=== PATIENT | female | born 1940 | race Caucasian/White ===

== ENCOUNTER 2017-01-10 03:39 | Inpatient (IN) | payer MEDICARE, OTHER ==
[~2017-01-10] VITALS: Ht 147.3 cm; Wt 63.8 kg
[2017-01-10] VITALS (40 sets, daily range): BP systolic 95–164; BP diastolic 45–118; PULSE 60–79; RESP 13–28; TEMP 97.3; Ht 147.3 cm; Wt 63.8 kg
[~2017-01-10 03:39] MED LIST: ADV25050 INHALATION; AMLO-147 PO; APR50 PO; ASPI-664 PO; CALC600T11 PO; CRES10 PO; DOCU100C26 PO; EPO4ESRD SC; FOLI-49 PO; FURO80TA3 PO; HYDR200T39 PO; LEVO50TA74 PO; MECL-77 PO; METO50TA16 PO; NAPH15DR22 BOTH EYES; NIT4 SL; PANT40TA3 PO; SEVE0.8P PO; SUCR1TAB56 PO; VALS160T20 PO; VITBC PO
[2017-01-10] MEDS ORDERED: LEVALBUTEROL (NEB) 1.25 MG/0.5 ML AMP INH STA (03:46)
[2017-01-10] MEDS ORDERED: IPRATROPIUM (NEB) 0.5 MG/2.5 ML AMP INH STA (03:46)
[2017-01-10 04:36] LABS: AADO2 Arterial 417.9 mmHg (7.0-24.0); Arterial Base Excess 1.7 mmol/L (-3.0-3); Arterial COHb 0.3 % (0.0-3.0); Arterial Fraction of Oxyhgb 95.5 % (93.0-99.0); Arterial HCO3 27.6 mmol/L (22.0-26.0); Arterial MetHb 0.3 % (0.0-1.5); Arterial Total Hemglobin 10.1 g/dl (12.0-18.0); Blood Gas IEPAP 15/5; MODE MASK - BIPAP
--- NOTE | 2017-01-10 05:00 | RADRPT ---
PROCEDURE: Chest. CLINICAL INDICATION: Chest pain. TECHNIQUE: Single frontal view of the chest was obtained. COMPARISON: None. FINDINGS: Mediasternotomy wires are present. There is a right-sided pacemaker. The cardiac silhouette is enl arged. The aortic arch is calcified. There are increased interstitial markings bilaterally. There are bibasilar atelectasis/consolidations and small to moderate pleural effusions. There is no pneu mothorax. IMPRESSION: Bilateral increased interstitial markings could represent interstitial edema or chronic lung changes . Bibasilar atelectasis/consolidations and small to moderate pleural effusions. Cardiomegaly and aortic atherosclerosis. .Adrian Gabriel MD, Date Time Electronically viewed and signed by .Adrian Gabriel MD, MD on 01/10/2017 05:00 .T/
[2017-01-10 05:58] LABS: ADD SCAN DIFF NO
--- NOTE | 2017-01-10 06:04 | ERA ---
ER Documentation Chief Complaint Date/Time DATE: 01/10/17 Chief Complaint SOB HPI The patient is a 76-year-old female, presenting to the ER because of acute dyspnea about an hour prior to arrival. The history is very limited due to patient critical condition. She was treated with Motrin 5 mg nebulizer by EMS due to wheezing with good response. History is mostly obtained from the tail dogger and medical record. She is on dialysis Friday and Friday Past medical history: Chronic kidney disease, hypothyroidism, hypertension, CAD , history of left breast carcinoma Past medical history: Pacemaker ROS All systems reviewed and are negative except as per history of present illness. Medications Home Meds Active Scripts Epoetin Costa (Epogen) 4,000 Units/Ml Soln, 4000 UNITS SC MoWeFr@17 for 60 Days, BOTTLE Prov:ISABELLA ROBLES MD 12/01/15 Vitamin B Comp W-C (Total B With C) 1 Cap Cap, 1 CAP PO DAILY for 60 Days, TAB Prov:ISABELLA ROBLES MD 12/01/15 Reported Medications Valsartan* (Diovan*) 160 Mg Tablet, 160 MG PO DAILY, TAB 11/28/15 Calcium Carbonate* (Calcium Carbonate*) 600 MG Ca Tab, 600 MG PO, TAB 11/28/15 Levothyroxine Sodium* (Levothyroxine Sodium*) 50 Mcg Tablet, 50 MCG PO BEFORE BREAKFAST, #30 TAB 11/28/15 Folic Acid* (Folic Acid*) 1 Mg Tablet, 1 MG PO DAILY, TAB 11/28/15 Furosemide* (Furosemide*) 80 Mg Tablet, 80 MG PO DAILY, #30 TAB 11/28/15 Hydroxychloroquine Sulfate* (Hydroxychloroquine Sulfate*) 200 Mg Tablet, 200 MG PO BID, TAB 11/28/15 Naphazoline-Pheniramine* (Visine-A*) 15 Ml Drops, 1 DROP BOTH EYES QID for RED EYES, EA 11/28/15 Rosuvastatin Calcium* (Crestor*) 10 Mg Tablet, 10 MG PO QHS, #30 TAB 11/28/15 Aspirin (Low Dose Aspirin) 81 Mg Tablet.dr, 81 MG PO DAILY 11/28/15 Meclizine Hcl* (Meclizine Hcl*) 25 Mg Tablet, 25 MG PO BID Y for DIZZINESS, TAB 11/28/15 Hydralazine Hcl* (Hydralazine Hcl*) 50 Mg Tab, 50 MG PO BID, #120 TAB 11/28/15 Pantoprazole* (Protonix*) 40 Mg Tablet.dr, 40 MG PO BID, TAB 11/28/15 Sucralfate* (Carafate*) 1 Gm Tab, 1 GM PO BID, TAB 11/28/15 Amlodipine Besylate* (Amlodipine Besylate*) 10 Mg Tablet, 10 MG PO DAILY, #30 TAB 11/28/15 Sevelamer Carbonate* (Renvela*) 0.8 Gm Powd.pack, 0.8 GM PO WITH MEALS, PACKET 11/28/15 Metoprolol Succinate* (Toprol XL*) 50 Mg Tab.er.24h, 50 MG PO QHS, #30 TAB 11/28/15 Nitroglycerin* (Nitrostat*) 0.4 Mg Tab.subl, 0.4 MG SL Q5MIN Y for CHEST PAIN, BOTTLE 11/28/15 Salmeterol Xinaf/Fluticasone* (Advair*) 250-50 Diskus Inhaler, 1 INH INHALATION BID, #1 INHALER 11/28/15 Docusate Sodium* (Doc-Q-Lace*) 100 Mg Capsule, 100 MG PO BID Y for CONSTIPATION , CAP 11/28/15 Allergies Allergies: Coded Allergies: Sulfa (Sulfonamide Antibiotics) (Verified Allergy, Unknown, 11/28/15) clonidine (Verified Allergy, Unknown, 01/10/17) iron dextran complex (Verified Allergy, Unknown, 01/10/17) quinine (Verified Allergy, Unknown, 01/10/17) PMhx/Soc History of Surgery: Yes (MAGO KNEE SX,LEFT BREAST SX,OPEN HEART SX,EYE SX,RT CHEST PACEMAKER) Anesthesia Reaction: No Hx Neurological Disorder: No Hx Respiratory Disorders: No Hx Cardiac Disorders: Yes (HTN,DYSPILIDEMIA,RT CHEST PACEMAKER ) Hx Psychiatric Problems: No Hx Miscellaneous Medical Probl: Yes (ERSD, HTN, vertigo, dyslipidemia) Hx Alcohol Use: No Hx Substance Use: No Hx Tobacco Use: No Smoking Status: Unknown if ever smoked Physical Exam Vitals Vital Signs Date Time Temp Pulse Resp B/P Pulse Ox O2 Delivery O2 Flow Rate FiO2 01/10/17 03:53 Non Rebreather 01/10/17 03:50 71 100 80 01/10/17 03:50 97.7 73 18 225/91 93 Physical Exam Const: Moderate acute respiratory distress. Head: Atraumatic. Eyes: Normal Conjunctiva. ENT: Normal External Ears, Nose and Mouth. Neck: Full range of motion. No meningismus. Resp: Bibasilar crackles and bilateral expiratory wheezes Cardio: Regular rate and rhythm, no murmurs. Abd: Soft, non distended, normal bowel sounds, non tender. Skin: No petechiae or rashes. Back: No midline or flank tenderness. Ext: No cyanosis, or edema. Neur: Limited due to her condition Psych: Limited due to her condition. Results 24 hrs Laboratory Tests Test 01/10/17 04:25 Arterial Blood HCO3 27.6mmol/L Arterial Blood Base Excess 1.7mmol/L Arterial Blood Oxygen Saturation 96.1mmHG Sukhi Test N/A Arterial Blood Gas Puncture Site Right Brachial Arterial Blood Carboxyhemoglobin 0.3% Arterial Blood Date Drawn 01/10/2017 4:32:05 AM Arterial Blood Methemoglobin 0.3% Arterial Blood pCO2 (Temp correct) 49.7mmhg Arterial Blood pH (Temp corrected) 7.362 Arterial Blood pO2 (Temp corrected) 100.3mmHG Blood Gas A-a O2 Differential 417.9mmHg Blood Gas Actual Respiration Rate 22 Blood Gas IPAP/EPAP Ratio 15/5 Blood Gas Modality MASK - BIPAP Blood Gas Notified Time 01/10/2017 4:36:35 AM Blood Gas Notified Whom MG Blood Gas Respiration Rate 20.0 Blood Gas Specimen Source Blood arterial Blood Gas Temperature 37.0C FiO2 80.0% Oxyhemoglobin Percent 95.5% Total Hemoglobin 10.1g/dl Current Medications Medications (Trade) Dose Ordered Sig/Crow Route PRN Reason Start Time Stop Time Status Last Admin Dose Admin Levalbuterol (Xopenex Neb) 5 mg ONCE STAT INH 01/10/17 03:46 01/10/17 03:48 DC 01/10/17 03:54 Ipratropium Rudyard (Atrovent 0.02% (Neb)) 1.5 mg ONCE STAT INH 01/10/17 03:46 01/10/17 03:48 DC 01/10/17 03:54 Procedures/[address], [place] [address] Radiology Main Line: [phone] DIAGNOSTIC IMAGING REPORT Patient: NATHALIE CARRILLO : 1940 Age: 76 Sex: F [id number] DOS: 01/10/17 0346 Ordering MD: MARIE CASAREZ MD Location: E/R Room/Bed: PROCEDURE: Chest. CLINICAL INDICATION: Chest pain. TECHNIQUE: Single frontal view of the chest was obtained. COMPARISON: None. FINDINGS: Mediasternotomy wires are present. There is a right-sided pacemaker. The cardiac silhouette is enlarged. The aortic arch is calcified. There are increased interstitial markings bilaterally. There are bibasilar atelectasis/ consolidations and small to moderate pleural effusions. There is no pneumothorax. IMPRESSION: Bilateral increased interstitial markings could represent interstitial edema or chronic lung changes. Bibasilar atelectasis/consolidations and small to moderate pleural effusions. Cardiomegaly and aortic atherosclerosis. .Adrian Gabriel MD, MD Date Time Electronically viewed and signed by .Adrian Gabriel MD, MD on 01/10/2017 05:00 .T/ CC: MARIE CASAREZ MD EKG: Read by emergency physician Rate/Rhythm: Normal Sinus Rhythm 71 beats/min QRS, ST, T-waves: No ST elevation, no T inversion, LAD, right bundle branch block, LVH, wide QRS Impression: Abnormal EKG All the blood tests are pending because the patient was a difficult draw. MEDICAL MAKING DECISION: The patient is a 76-year-old female, presenting with acute fluid overload. She was put on BiPAP and treated with Xopenex 5 mg nebulizer and Atrovent 1.5 mg over one hour with good response. The differential diagnoses considered include but are not limited to asthma, COPD, pneumonia, pulmonary embolus, pleural effusion, congestive heart failure. Critical Care: Time: 35 minutes excluding all billable procedures. Treatments/Evaluations: Close monitoring and treatment of unstable vital signs, cardiorespiratory, and neurologic status, while maintaining tight balance of fluid, respiratory, and cardiac interventions. Departure Diagnosis: Primary Impression: Fluid overload Comments I discussed the findings with the patient. I discussed the patient with her physician at 5:45 am who was made aware of the lab, the treatment, the patient condition, the pending labs. The patient is admitted to ICU. He asked me to page the net manager Dr Arnett. We have paged Dr. Morris who was on -call for MARIE Louie MD Jan 10, 2017 06:04
[2017-01-10 06:23] LABS: ALBUMIN 3.5 g/dl (3.3-4.9)
[2017-01-10 06:26] LABS: ALBUMIN/GLOBULIN RATIO 1.09; BILIRUBIN,INDIRECT 0.1 mg/dl (0-1.1); BILIRUBIN,TOTAL 0.1 mg/dl (0.2-1.3); CREATININE 3.06 mg/dl (0.44-1.00); TOTAL PROTEIN 6.7 g/dl (6.1-8.1)
[2017-01-10 06:27] LABS: CALCIUM 8.7 mg/dl (8.4-10.2)
[2017-01-10] MEDS ORDERED: FUROSEMIDE 40 MG INJ IV ONE (06:30)
[2017-01-10 06:31] LABS: ABNORMAL IP MESSAGE 1; HEMATOCRIT 30.6 % (37.0-47.0); HEMOGLOBIN 9.3 g/dl (12.0-16.0); MEAN CORPUSCULAR HEMOGLOBIN 33.6 pg (29.0-33.0); MEAN CORPUSCULAR HGB CONC 30.4 g/dl (32.0-37.0); MEAN CORPUSCULAR VOLUME 110.5 fl (82.0-101.0); PLATELET COUNT 57 10^3/UL (140-415); RED BLOOD COUNT 2.77 10^6/ul (4.20-5.40); RED CELL DISTRIBUTION WIDTH 15.8 % (11.5-14.5); WHITE BLOOD COUNT 4.8 10^3/ul (4.8-10.8)
[2017-01-10 06:49] LABS: TROPONIN-I 0.231 ng/ml (0.00-0.12)
[2017-01-10 07:03] LABS: MEAN PLATELET VOLUME 11.8 fl (7.4-10.4)
--- NOTE | 2017-01-10 08:09 | QN ---
Documentation Comment H&P dict a/p 1. cards: flash pulm edema, cards eval, plan dialysis, trend trop, obtain echo (b) s/p ICD (c) new RBBB (not present 11/2015) (d) htn 2. hypoxemic resp failure, cont bipap 3. renal: esrd on hd, consult dr mckeon 4. CINDY SHARMA MD Jan 10, 2017 08:09
[2017-01-10] MEDS ORDERED: NITROGLYCERIN 50 MG/D5W (PMX) 250 ML IV SCH (08:30)
[2017-01-10] MEDS ORDERED: ACETAMINOPHEN 325 MG TAB PO PRN (08:30)
[2017-01-10] MEDS ORDERED: ALBUTEROL/IPRATROPIUM (NEB) 3 ML AMP NEB PRN (08:30)
[2017-01-10] MEDS ORDERED: DOCUSATE SODIUM 100 MG CAP PO PRN (08:30)
[2017-01-10] MEDS ORDERED: ONDANSETRON 4 MG INJ IV PRN (08:30)
[2017-01-10 08:43] LABS: INR 0.91; PROTIME 12.2 Sec (12.2-14.2)
--- NOTE | 2017-01-10 09:01 | HP ---
DATE OF ADMISSION: 01/10/2017 CHIEF COMPLAINT: Shortness of breath. HISTORY OF PRESENT ILLNESS: The patient is referred to the emergency room at [facility] th shortness of breath which is of sudden onset from her fdc facility, [facility]. At this time, the patient's status and breathing difficulties does not allow her to provide any add itional history. In the emergency room, she was placed immediately on BiPAP with a high FIO2 and no w appears to be somewhat more comfortable. Remainder of this is gathered from conversation with the emergency room physician as well as review of the medical record. The patient does come with papers from [facility] which reveal that she was admitted there on o r around December 01 when she was discharged from [facility] where she was evaluated for wea kness and chest pain during dialysis, according to the accompanying history and physical. She was a dmitted to that hospital and then discharged to the retirement. There is no record transmitted of any cardiac workup having been performed. PAST MEDICAL HISTORY: Significant for end-stage renal disease on hemodialysis Friday, , an d Friday, anemia of chronic kidney disease, hypertension, known coronary artery disease status pos t coronary artery bypass grafting, ICD in situ. MEDICATIONS: Outpatient include 1. Plaquenil 200 mg b.i.d. 2. Erythropoietin 4000 units q. Friday, Friday, Friday. 3. Norvasc 10 mg daily. 4. Hydralazine 50 mg b.i.d. 5. Metoprolol 50 mg at bedtime. 6. Nitroglycerin 0.4 mg as needed. 7. Crestor 10 mg daily. 8. Diovan 160 mg daily. 9. Aspirin 81 mg daily. 10. Os-Eyal 600 mg daily. 11. Lasix 80 mg daily. 12. Renvela 0.8 grams with meals. 13. Advair 1 puff b.i.d. 14. Docusate 100 mg b.i.d. as needed. 15. Meclizine as needed. 16. Protonix 40 mg b.i.d. 17. Carafate 1 gram b.i.d. 18. Levoxyl 0.05 mg daily. 19. Folate 1 mg daily. 20. Nephro-Andrea. ALLERGIES: 1. SULFA. 2. CLONIDINE. 3. IRON COMPLEX. 4. QUININE. SOCIAL HISTORY: The patient has recently been in the retirement. She was unable to provide me an y additional details. Calls to family have not been answered. FAMILY HISTORY: Unobtainable. REVIEW OF SYSTEMS: Unobtainable. PHYSICAL EXAMINATION: VITAL SIGNS: Blood pressure is 181/100, pulse rate 69, respirations 20, temperature is 97.7, on BiP AP and 100% FIO2. GENERAL: Elderly woman, moderate respiratory distress. HEENT: Normocephalic, atraumatic without evident scleral icterus, perioral cyanosis. Mucous membra emma are moist. NECK: Soft and supple without masses. There is jugular venous distention to the angle of the greg ble. HEART: Regular rate and rhythm, S1-S2, no added sounds. CHEST: Shows faint wheezing throughout. No definitive crackles are appreciated. ABDOMEN: Soft, nontender, nondistended without palpable hepatosplenomegaly. EXTREMITIES: Without clubbing, cyanosis, or edema. There are multiple bruises which appear iatroge jennie in nature. SKIN: Without rashes. NEUROLOGIC: Moving all 4 limbs, awake, and attempts to respond to questions. LABORATORY STUDIES: Reveal a hemoglobin of 9.3 g/dL, white count of 4800, platelets of 57,000. Sod ium is 147, potassium 5.0, chloride 104, bicarbonate 26, BUN 35, creatinine 3.06, glucose 124. Live r function tests are unremarkable. Lactic acid is 2.1. Troponin is 0.231. Blood gas on BiPAP reve als a pH of 7.362, PCO2 of 50, PO2 of 100 on FIO2 of 80%. Chest x-ray reveals left-sided tunneled d ialysis catheter, right-sided implantable cardiac defibrillator, sternal wires, pulmonary vascular c ongestion with right-side seemingly greater effected than left. EKG shows right bundle branch block pattern with T-wave inversions noted in leads V1 and V2. This is somewhat different than EKG we vickers ve on file from November 2015. ASSESSMENT AND PLAN: 1. Cardiac: The patient with likely flash pulmonary edema. I suspect this represents cardiac isch emia. Of note in the computer is that the patient has been evaluated twice in the last 6 weeks or s o for chest pain syndrome at [facility] in [facility] based on the paperwork sent from the retirement. We will obtain cardiology evaluation, favor invasive strategy, but defer to their opinion. 2. Status post implantable cardiac defibrillator, awaiting echocardiogram. 3. Hypertension, out of control, likely related to acute syndrome. We will begin nitroglycerin dri p at this time. 4. Pulmonary: The patient with acute hypoxemic respiratory failure most likely related to pulmonar y edema and cardiac issue. Await dialysis. Dr. Das has been contacted by the emergency room. 5. Renal: The patient with end-stage renal disease on hemodialysis. We will obtain renal consulta tion and urgent dialysis at this time. 6. Prophylaxis with Lovenox and Protonix. Dictated By: CINDY SHARMA MD RER/NTS Conf#: [id number] DID#: [id number]
[2017-01-10] MEDS ORDERED: NITROGLYCERIN 2% 1 GM OINT PKT TD ONE (10:30)
[2017-01-10 10:35] LABS: LYMPHOCYTES # 0.6 10^3/ul (0.8-2.9); MONOCYTE # 0.1 10^3/ul (0.3-0.9); PLATELET ESTIMATE PLT APPEAR DECREASED
--- NOTE | 2017-01-10 10:41 | QN ---
Documentation Comment HPI:76-year-old woman signed out to me to follow-up labs. Patient was admitted for respiratory failure and end-stage kidney disease requiring dialysis. Patient is on BiPAP now without complaints per Past medical history: Hypertension, coronary artery disease status post coronary artery bypass graft, end-stage kidney disease hemodialysis dependent 3 times per week PHYSICAL EXAMINATION: VITAL SIGNS: Blood pressure is 181/100, pulse rate 69, respirations 20, temperature is 97.7, on BiPAP and 100% FIO2. GENERAL: Elderly woman, moderate respiratory distress. HEENT: Normocephalic, atraumatic without evident scleral icterus, perioral cyanosis. Mucous membranes are moist. NECK: No cervical spine tenderness or deformity, there is jugular venous distention to the angle of the mandible. HEART: Regular rate and rhythm, no murmurs rubs or gallops CHEST: Positive wheezing and crackles bilaterally, no stridor ABDOMEN: Soft, nontender, nondistended without palpable hepatosplenomegaly. EXTREMITIES: Without clubbing, cyanosis, or edema. There are multiple soft tissue contusions SKIN: Without rashes. NEUROLOGIC: Moving all 4 limbs, awake, and attempts to respond to questions. Medical decision making: CBC reveals thrombocytopenia 57, electrolytes revealed renal failure with a BUN/creatinine of 35/3, liver function tests were normal, troponin was positive at 0.2. INR was 0.9. Labs were reviewed by me and the admitting physician who is down here in the emergency department at the bedside evaluating the patient. I deferred aspirin therapy to admitting and consulting physicians. Diagnostic impression: #1) acute respiratory failure 2.) End-stage kidney disease requiring hemodialysis 3.) Elevated troponin POLO HOUSER MD Jan 10, 2017 10:41
[2017-01-10] MEDS: ALBUTEROL/IPRATROPIUM (NEB) 3 ML AMP NEB SCH ×4 (11:00→20:58)
--- NOTE | 2017-01-10 11:04 | CONS ---
Date/Time of Note Date/Time of Note DATE: 01/10/17 TIME: 10:40 Assessment/Plan Assessment/Plan Additional Assessment/Plan 76 yo Female with 1) Respiratory Distress 2nd to Pulm Edema/Volume Overload 2) ESRD on HD TTS, Missed Last HD treatment 3) Anemia, Chronic, CKD 4) Thrombocytopenia 5) HTN Uncontrolled 6) Elevated Troponin 7) Mineral Bone Disease, CKD 8) Mild Hypernatremia 9) Left Chest Perma-cath HD ordered urgently for today and tomorrow in ICU UF as tolerated today and tomorrow Please monitor BP closely while on HD Also may remove Nitro patch as BP significantly improved. Epogen ordered 3 x week, may be given with HD. Will cont to follow closely Discussed case with NICOLE FUENTES and Dr Olea of Cardiology. Thank you for the opportunity to participate in the care of Ms Garrido. Consultation Date/Type/Reason Admit Date/Time Date of Consultation: Jan 10, 2017 Type of Consultation: Nephrology Reason for Consultation Volume Overload, ESRD Referring Provider: CINDY SHARMA MD Hx of Present Illness 76 yo Female with history of end-stage renal disease on hemodialysis Friday, , and Friday, anemia of chronic kidney disease, hypertension, known coronary artery disease status post coronary artery bypass grafting and ICD who was sent from [facility] for sudden onset shortness of breath . Patient required O2 support including BIPAP and now is on NRB. Patient had missed her HD treatment and last HD was on Friday. BP also was found to be elevated and was placed on Nitro Patch and given Hydralazine and lasix. Pt is refusing all other Oral medications. Nephrology consulted for Volume Overload and management of ESRD. Subjective hx not possible: pt critical status Constitutional: requiring O2 Respiratory: shortness of breath Cardiovascular: No chest pain Past Medical History MEDICATIONS: 1. Plaquenil 200 mg b.i.d. 2. Erythropoietin 4000 units q. Friday, Friday, Friday. 3. Norvasc 10 mg daily. 4. Hydralazine 50 mg b.i.d. 5. Metoprolol 50 mg at bedtime. 6. Nitroglycerin 0.4 mg as needed. 7. Crestor 10 mg daily. 8. Diovan 160 mg daily. 9. Aspirin 81 mg daily. 10. Os-Eyal 600 mg daily. 11. Lasix 80 mg daily. 12. Renvela 0.8 grams with meals. 13. Advair 1 puff b.i.d. 14. Docusate 100 mg b.i.d. as needed. 15. Meclizine as needed. 16. Protonix 40 mg b.i.d. 17. Carafate 1 gram b.i.d. 18. Levoxyl 0.05 mg daily. 19. Folate 1 mg daily. 20. Nephro-Andrea. ALLERGIES: 1. SULFA. 2. CLONIDINE. 3. IRON COMPLEX. 4. QUININE. Medical History: congestive heart failure, coronary artery disease, hypertension, renal disease Past Surgical History Past Surgical Hx: other (AICD, PC) Family History Significant Family History: no pertinent family hx Social History Alcohol Use: none Smoking Status: Unknown if ever smoked Drug Use: none Exam/Review of Systems Vital Signs Vitals Vital Signs Date Time Temp Pulse Resp B/P Pulse Ox O2 Delivery O2 Flow Rate FiO2 01/10/17 10:04 97.3 69 16 211/98 100 Non Rebreather 15.0 01/10/17 09:41 80 Exam Constitutional: alert, distress Head: atraumatic Eyes: EOMI, nl conjunctiva ENMT: mucosa pink and moist Neck: jvd Respiratory: crackles/rales, labored breathing, No diminished breath sounds Cardiovascular: edema, other (Left Chest Perma-cath) Gastrointestinal: non-tender, soft Extremities: edema Neurological: nl speech, No lethargic Skin: ecchymosis, nl turgor, No diaphoresis Results Result Diagram: 01/10/17 0550 01/10/17 0535 Results 24 hrs Laboratory Tests Test 01/10/17 04:25 01/10/17 05:35 01/10/17 05:40 01/10/17 05:50 Arterial Blood HCO3 27.6 H Arterial Blood Base Excess 1.7 Arterial Blood Oxygen Saturation 96.1 Sukhi Test N/A Arterial Blood Gas Puncture Site Right Brachial Arterial Blood Carboxyhemoglobin 0.3 Arterial Blood Date Drawn 01/10/2017 4:32:05 AM Arterial Blood Methemoglobin 0.3 Arterial Blood pCO2 (Temp correct) 49.7 H Arterial Blood pH (Temp corrected) 7.362 Arterial Blood pO2 (Temp corrected) 100.3 H Blood Gas A-a O2 Differential 417.9 H Blood Gas Actual Respiration Rate 22 Blood Gas IPAP/EPAP Ratio 15/5 Blood Gas Modality MASK - BIPAP Blood Gas Notified Time 01/10/2017 4:36:35 AM Blood Gas Notified Whom MG Blood Gas Respiration Rate 20.0 Blood Gas Specimen Source Blood arterial Blood Gas Temperature 37.0 FiO2 80.0 Oxyhemoglobin Percent 95.5 Total Hemoglobin 10.1 L Alanine Aminotransferase (ALT/SGPT) 27 Albumin 3.5 Albumin/Globulin Ratio 1.09 Alkaline Phosphatase 121 Anion Gap 22 H Aspartate Amino Transf (AST/SGOT) 45 Blood Urea Nitrogen 35 H Calcium Level 8.7 Carbon Dioxide Level 26 Chloride Level 104 Creatinine 3.06 H Direct Bilirubin 0.00 Globulin 3.20 Glucose Level 124 Indirect Bilirubin 0.1 Potassium Level 5.0 Sodium Level 147 H Total Bilirubin 0.1 L Total Protein 6.7 Troponin I 0.231 *H Lactic Acid Level 2.1 Basophils # Basophils % Differential Comment MANUAL DIFF Eosinophils # 0.0 Eosinophils % 1.0 Hematocrit 30.6 L Hemoglobin 9.3 L Lymphocytes # 0.6 L Lymphocytes % 13.0 L Mean Corpuscular Hemoglobin 33.6 H Mean Corpuscular Hemoglobin Concent 30.4 L Mean Corpuscular Volume 110.5 H Mean Platelet Volume 11.8 #H Monocytes # 0.1 L Monocytes % 3.0 Neutrophils # 4.0 Neutrophils % 83.0 H Nucleated Red Blood Cells # Nucleated Red Blood Cells % Platelet Count 57 L Platelet Estimate PLT APPEAR DECREASED Red Blood Count 2.77 L Red Cell Distribution Width 15.8 H White Blood Count 4.8 # Test 01/10/17 08:00 Activated Partial Thromboplast Time 81.7 *H INR International Normalized Ratio 0.91 Lactic Acid Level 0.7 Prothrombin Time 12.2 Prothrombin Time Ratio 1.0 Troponin I 0.259 *H Medications Medications Current Medications Amlodipine Besylate (Norvasc) 10 mg DAILY PO ; Start 01/10/17 at 09:00 Aspirin (Halfprin) 81 mg DAILY PO ; Start 01/10/17 at 09:00 Docusate Sodium (Colace) 100 mg BID PRN PO CONSTIPATION; Start 01/10/17 at 08: 30 Epoetin Costa (Epogen (Esrd)) 4,000 units MoWeFr@17 SC ; Start 01/10/17 at 17:00 Folic Acid (Folic Acid) 1 mg DAILY PO ; Start 01/10/17 at 09:00 Hydroxychloroquine Sulfate (Plaquenil) 200 mg BID PO ; Start 01/10/17 at 09:00 Metoprolol Succinate (Toprol Xl) 50 mg QHS PO ; Start 01/10/17 at 21:00 Naphazoline HCl/ Pheniramine Maleate (Visine-A) 1 drop QID BOTH EYES ; Start 08/19 at 09:00 Pantoprazole (Protonix Tab) 40 mg BID PO ; Start 01/10/17 at 09:00 Salmeterol Xinafoate/ Fluticasone (Advair 250/50 Diskus) 1 inh BID INH ; Start 01/10/17 at 09:00 Sucralfate (Carafate) 1 gm BID PO ; Start 01/10/17 at 09:00 Valsartan (Diovan) 160 mg DAILY PO ; Start 01/10/17 at 09:00 Vitamin B Complex/ Vitamin C (Berocca) 1 cap DAILY PO ; Start 01/10/17 at 09:00 Atorvastatin Calcium (Lipitor) 80 mg DAILY PO ; Start 01/10/17 at 09:00 Hydralazine HCl (Apresoline) 50 mg Q6 PO ; Start 01/10/17 at 12:00 Ondansetron HCl (Zofran Inj) 4 mg Q6H PRN IV NAUSEA AND/OR VOMITING; Start 08/19 at 08:30 Acetaminophen (Tylenol Tab) 650 mg Q6H PRN PO PAIN LEVEL 1-3 OR FEVER; Start at 08:30 Morphine Sulfate (morphine) 2 mg Q4H PRN IV PAIN LEVEL 7-10; Start 01/10/17 at 08:30 Enoxaparin Sodium 30 mg 30 mg DAILY SC ; Start 01/10/17 at 09:00; Status Future hold Nitroglycerin/ Dextrose (Nitroglycerin 50 Mg/D5W (Pmx)) 250 ml @ 0 mls/hr TITRATE IV ; Start 01/10/17 at 08:30 Procedures Procedures PROCEDURE: Chest. CLINICAL INDICATION: Chest pain. TECHNIQUE: Single frontal view of the chest was obtained. COMPARISON: None. FINDINGS: Mediasternotomy wires are present. There is a right-sided pacemaker. The cardiac silhouette is enlarged. The aortic arch is calcified. There are increased interstitial markings bilaterally. There are bibasilar atelectasis/ consolidations and small to moderate pleural effusions. There is no pneumothorax. IMPRESSION: Bilateral increased interstitial markings could represent interstitial edema or chronic lung changes. Bibasilar atelectasis/consolidations and small to moderate pleural effusions. Cardiomegaly and aortic atherosclerosis. .Adrian Gabriel MD, MD Date Time Electronically viewed and signed by .Adrian Gabriel MD, MD on 01/10/2017 05:00 EDGARDO DUKES MD Jan 10, 2017 10:52
[2017-01-10] MEDS: NAPHAZOLINE/PHENIRAMINE 15 ML OPH BOTH EYES SCH ×4 (11:13→21:00)
[2017-01-10] MEDS: VITAMIN B COMPLEX/VIT C CAP PO SCH (11:13)
--- NOTE | 2017-01-10 11:13 | CONS ---
Date/Time of Note Date/Time of Note DATE: 01/10/17 TIME: 11:07 Assessment/Plan Assessment/Plan Additional Assessment/Plan Chest x-ray was reviewed from today which is showing florid pulmonary edema. Sternal wires are identified. Pacemaker in the right chest wall. Assessment recommendations; 1. Patient admitted with flash pulmonary edema likely from missing her hemodialysis session yesterday. 2. Hypertension, patient is mildly hypertensive possibly contributing to pulmonary edema due to diastolic dysfunction. 3. End-stage renal disease on hemodialysis. 4. Prior history of left breast cancer. 5. History of cardiac arrhythmia. 6. Currently no evidence of any infective process. 7. History of hypothyroidism. 8. Mild thrombocytopenia. Continue current treatment. Continue 100% FiO2. Patient will be started on hemodialysis shortly. Consultation Date/Type/Reason Admit Date/Time Date of Consultation: Jan 10, 2017 Type of Consultation: Pulmonary/critical care Reason for Consultation Pulmonary consultation obtained for evaluation of hypoxemia as well as congestive heart failure. Next History presenting; next Patient is a 76-year-old white lady who was brought into the emergency room with complaints of shortness of breath going on for the last 1 day the patient apparently had missed her last hemodialysis session. Evaluation a chest x-ray was done which is showing florid pulmonary edema patient has been put on 100% nonrebreather mask instructed to ICU. By the time I saw the patient is quite awake on still on nonrebreather mask and denies any severe respiratory distress. Denies any chest pain, nausea, vomiting. Past medical history; 1. Patient with chronic renal failure on hemodialysis. 2. History of left breast cancer. 3. History of coronary artery disease status post bypass surgery. 4. History of cardiac arrhythmia status post pacemaker implantation. 5. History of hypertension. 6. Hypothyroidism. 7. History of bilateral knee surgery. Medications; were reviewed. Allergies; are to sulfa drugs. Iron as well as quinine. Next Social history; most of any smoking alcohol or drug abuse. Family history; not available. Next Occupational history; not available. Review of systems; limited review of systems could be obtained. Patient is reporting shortness of breath is stable. Denies any chest pain. Any coughing. Denies any abdominal pain. General exam; elderly lady, currently in no distress, appears mildly anxious. Constitutional: requiring O2 Respiratory: shortness of breath Cardiovascular: No chest pain Past Medical History Medical History: congestive heart failure, coronary artery disease, hypertension, renal disease Past Surgical History Past Surgical Hx: other (AICD, PC) Social History Alcohol Use: none Smoking Status: Unknown if ever smoked Drug Use: none Exam/Review of Systems Vital Signs Vitals Vital Signs Date Time Temp Pulse Resp B/P Pulse Ox O2 Delivery O2 Flow Rate FiO2 01/10/17 10:04 97.3 69 16 211/98 100 Non Rebreather 15.0 01/10/17 09:41 80 Exam H EENT examination; supple neck, positive JVD. No lymphadenopathy. Midline trachea. No thyromegaly. Patient is edentulous and wears dentures. Bilateral intraocular lens implants are present. Chest examination; diminished breath sounds throughout. Patient has kyphoscoliosis. S1-S2 audible, no murmurs. Regular rhythm. There is a pacemaker in the right chest wall. Abdomen examination; soft, nondistended. Bowel sounds are sluggish. Next Extremity exam is; she has bilateral knee scars. There is no peripheral edema. Pulses 2+ bilaterally. PERFORMANCE MANAGER examination; no obvious focal motor deficit. Results Result Diagram: 01/10/17 0550 01/10/17 0535 Results 24 hrs Laboratory Tests Test 01/10/17 04:25 01/10/17 05:35 01/10/17 05:40 01/10/17 05:50 Arterial Blood HCO3 27.6 H Arterial Blood Base Excess 1.7 Arterial Blood Oxygen Saturation 96.1 Sukhi Test N/A Arterial Blood Gas Puncture Site Right Brachial Arterial Blood Carboxyhemoglobin 0.3 Arterial Blood Date Drawn 01/10/2017 4:32:05 AM Arterial Blood Methemoglobin 0.3 Arterial Blood pCO2 (Temp correct) 49.7 H Arterial Blood pH (Temp corrected) 7.362 Arterial Blood pO2 (Temp corrected) 100.3 H Blood Gas A-a O2 Differential 417.9 H Blood Gas Actual Respiration Rate 22 Blood Gas IPAP/EPAP Ratio 15/5 Blood Gas Modality MASK - BIPAP Blood Gas Notified Time 01/10/2017 4:36:35 AM Blood Gas Notified Whom MG Blood Gas Respiration Rate 20.0 Blood Gas Specimen Source Blood arterial Blood Gas Temperature 37.0 FiO2 80.0 Oxyhemoglobin Percent 95.5 Total Hemoglobin 10.1 L Alanine Aminotransferase (ALT/SGPT) 27 Albumin 3.5 Albumin/Globulin Ratio 1.09 Alkaline Phosphatase 121 Anion Gap 22 H Aspartate Amino Transf (AST/SGOT) 45 Blood Urea Nitrogen 35 H Calcium Level 8.7 Carbon Dioxide Level 26 Chloride Level 104 Creatinine 3.06 H Direct Bilirubin 0.00 Globulin 3.20 Glucose Level 124 Indirect Bilirubin 0.1 Potassium Level 5.0 Sodium Level 147 H Total Bilirubin 0.1 L Total Protein 6.7 Troponin I 0.231 *H Lactic Acid Level 2.1 Basophils # Basophils % Differential Comment MANUAL DIFF Eosinophils # 0.0 Eosinophils % 1.0 Hematocrit 30.6 L Hemoglobin 9.3 L Lymphocytes # 0.6 L Lymphocytes % 13.0 L Mean Corpuscular Hemoglobin 33.6 H Mean Corpuscular Hemoglobin Concent 30.4 L Mean Corpuscular Volume 110.5 H Mean Platelet Volume 11.8 #H Monocytes # 0.1 L Monocytes % 3.0 Neutrophils # 4.0 Neutrophils % 83.0 H Nucleated Red Blood Cells # Nucleated Red Blood Cells % Platelet Count 57 L Platelet Estimate PLT APPEAR DECREASED Red Blood Count 2.77 L Red Cell Distribution Width 15.8 H White Blood Count 4.8 # Test 01/10/17 08:00 Activated Partial Thromboplast Time 81.7 *H INR International Normalized Ratio 0.91 Lactic Acid Level 0.7 Prothrombin Time 12.2 Prothrombin Time Ratio 1.0 Troponin I 0.259 *H Medications Medications Current Medications Amlodipine Besylate (Norvasc) 10 mg DAILY PO ; Start 01/10/17 at 09:00 Aspirin (Halfprin) 81 mg DAILY PO ; Start 01/10/17 at 09:00 Docusate Sodium (Colace) 100 mg BID PRN PO CONSTIPATION; Start 01/10/17 at 08: 30 Epoetin Costa (Epogen (Esrd)) 4,000 units MoWeFr@17 SC ; Start 01/10/17 at 17:00 Folic Acid (Folic Acid) 1 mg DAILY PO ; Start 01/10/17 at 09:00 Hydroxychloroquine Sulfate (Plaquenil) 200 mg BID PO ; Start 01/10/17 at 09:00 Metoprolol Succinate (Toprol Xl) 50 mg QHS PO ; Start 01/10/17 at 21:00 Naphazoline HCl/ Pheniramine Maleate (Visine-A) 1 drop QID BOTH EYES ; Start 08/19 at 09:00 Pantoprazole (Protonix Tab) 40 mg BID PO ; Start 01/10/17 at 09:00 Salmeterol Xinafoate/ Fluticasone (Advair 250/50 Diskus) 1 inh BID INH ; Start 01/10/17 at 09:00 Sucralfate (Carafate) 1 gm BID PO ; Start 01/10/17 at 09:00 Valsartan (Diovan) 160 mg DAILY PO ; Start 01/10/17 at 09:00 Vitamin B Complex/ Vitamin C (Berocca) 1 cap DAILY PO ; Start 01/10/17 at 09:00 Atorvastatin Calcium (Lipitor) 80 mg DAILY PO ; Start 01/10/17 at 09:00 Hydralazine HCl (Apresoline) 50 mg Q6 PO ; Start 01/10/17 at 12:00 Ondansetron HCl (Zofran Inj) 4 mg Q6H PRN IV NAUSEA AND/OR VOMITING; Start 08/19 at 08:30 Acetaminophen (Tylenol Tab) 650 mg Q6H PRN PO PAIN LEVEL 1-3 OR FEVER; Start at 08:30 Morphine Sulfate (morphine) 2 mg Q4H PRN IV PAIN LEVEL 7-10; Start 01/10/17 at 08:30 Enoxaparin Sodium 30 mg 30 mg DAILY SC ; Start 01/10/17 at 09:00; Status Future hold Nitroglycerin/ Dextrose (Nitroglycerin 50 Mg/D5W (Pmx)) 250 ml @ 0 mls/hr TITRATE IV ; Start 01/10/17 at 08:30 TONY MEHTA Jan 10, 2017 11:13
[2017-01-10] MEDS: SUCRALFATE 1 GM TAB PO SCH ×2 (11:14→21:00)
[2017-01-10] MEDS: FOLIC ACID 1 MG TAB PO SCH (11:14)
[2017-01-10] MEDS: VALSARTAN 160 MG TAB PO SCH (11:14)
[2017-01-10] MEDS: ATORVASTATIN 80 MG TAB PO SCH (11:15)
[2017-01-10] MEDS: AMLODIPINE 10 MG TAB PO SCH (11:15)
[2017-01-10] MEDS: HYDROXYCHLOROQUINE 200 MG TAB PO SCH ×2 (11:15→21:00)
[2017-01-10] MEDS: ASPIRIN (EC) 81 MG TAB PO SCH (11:15)
[2017-01-10] MEDS: SALMETEROL/FLUTICASONE 250/50 INHA INH SCH ×2 (11:16→21:00)
[2017-01-10] MEDS: LEVOTHYROXINE 50 MCG TAB PO SCH (11:16)
[2017-01-10] MEDS: PANTOPRAZOLE (EC) 40 MG TAB PO SCH ×2 (11:16→21:00)
[2017-01-10] MEDS: ENOXAPARIN 30 MG/0.3 ML SYG SC SCH (11:16)
--- NOTE | 2017-01-10 12:01 | CONS ---
Date/Time of Note Date/Time of Note DATE: 01/10/17 TIME: 11:43 Assessment/Plan Assessment/Plan Additional Assessment/Plan Pulmonary edema Hypertension urgency End-stage renal disease on hemodialysis Hypertension History of pacemaker Possible poor compliance -Patient seen initially in the emergency room and refusing examination and any medications or BiPAP. I spoke to her at length with the supervisor poultry hatchery and she said "I feel fine, leave me alone. I have no pain, just let me be". Her systolic blood pressure was above 210 in the emergency room. This was discussed with the patient including risks of stroke and she said "I do not care ". I asked the nurse to place nitro ointment and current systolic blood pressure is now 150. Patient was re-seen in the ICU and is calmer now, she did allow me to examine her with my findings above. She denies any chest pain. It appears patient has not been compliant with medications and unclear compliance with hemodialysis. She is planned to undergo hemodialysis this morning. Check echocardiogram, 2 sets of troponins minimally elevated and in the setting of renal dysfunction and hypertension urgency, this is not uncommon. Of importance is compliant with hemodialysis and medication regimen. Will continue aspirin and statin therapy, beta-vipin. Consultation Date/Type/Reason Admit Date/Time Type of Consultation: cv Reason for Consultation Shortness of breath and elevated troponin Hx of Present Illness This is a 76-year-old female with past medical history of end-stage renal disease on hemodialysis, hypertension, who was brought to the emergency room from nursing facility secondary to shortness of breath. History was obtained from the primary physician, medical records, and the patient via supervisor poultry hatchery. Patient states she has been getting short of breath at nighttime over the past few days. In further discussion, it appears that she has been refusing hemodialysis. She is also refusing all medications at the current time and at times becomes angry and does not want to give me any history. She is also currently refusing all medications and BiPAP. She denies any chest pain, dizziness or lightheadedness. She repeatedly is asking us to leave her alone and she is fine. Unable to be performed at the current time given patient not forthcoming with information Constitutional: requiring O2 Respiratory: shortness of breath Cardiovascular: No chest pain Past Medical History Medical History: congestive heart failure, hypertension, renal disease Past Surgical History Past Surgical Hx: other (Including but not limited to hemodialysis catheter, pacemaker) Family History Significant Family History: no pertinent family hx Social History Alcohol Use: none Smoking Status: Unknown if ever smoked Other Social History From nursing facility Exam/Review of Systems Vital Signs Vitals Vital Signs Date Time Temp Pulse Resp B/P Pulse Ox O2 Delivery O2 Flow Rate FiO2 01/10/17 11:15 60 16 139/118 100 Non Rebreather 01/10/17 11:00 97.6 01/10/17 10:04 15.0 01/10/17 09:41 80 Exam Awake, intermittently following commands, becomes combative at times, on nonrebreather Head: normocephalic Respiratory: other (Coarse breath sounds bilaterally with scattered crackles, no wheezing) Cardiovascular: other (S1-S2 heard), regular rate and rhythm Gastrointestinal: bowel sounds, non-tender, other (No guarding), soft Extremities: edema, other (No cyanosis) Results Result Diagram: 01/10/17 0550 01/10/17 0535 Results 24 hrs Laboratory Tests Test 01/10/17 04:25 01/10/17 05:35 01/10/17 05:40 01/10/17 05:50 Arterial Blood HCO3 27.6 H Arterial Blood Base Excess 1.7 Arterial Blood Oxygen Saturation 96.1 Sukhi Test N/A Arterial Blood Gas Puncture Site Right Brachial Arterial Blood Carboxyhemoglobin 0.3 Arterial Blood Date Drawn 01/10/2017 4:32:05 AM Arterial Blood Methemoglobin 0.3 Arterial Blood pCO2 (Temp correct) 49.7 H Arterial Blood pH (Temp corrected) 7.362 Arterial Blood pO2 (Temp corrected) 100.3 H Blood Gas A-a O2 Differential 417.9 H Blood Gas Actual Respiration Rate 22 Blood Gas IPAP/EPAP Ratio 15/5 Blood Gas Modality MASK - BIPAP Blood Gas Notified Time 01/10/2017 4:36:35 AM Blood Gas Notified Whom MG Blood Gas Respiration Rate 20.0 Blood Gas Specimen Source Blood arterial Blood Gas Temperature 37.0 FiO2 80.0 Oxyhemoglobin Percent 95.5 Total Hemoglobin 10.1 L Alanine Aminotransferase (ALT/SGPT) 27 Albumin 3.5 Albumin/Globulin Ratio 1.09 Alkaline Phosphatase 121 Anion Gap 22 H Aspartate Amino Transf (AST/SGOT) 45 Blood Urea Nitrogen 35 H Calcium Level 8.7 Carbon Dioxide Level 26 Chloride Level 104 Creatinine 3.06 H Direct Bilirubin 0.00 Globulin 3.20 Glucose Level 124 Indirect Bilirubin 0.1 Potassium Level 5.0 Sodium Level 147 H Total Bilirubin 0.1 L Total Protein 6.7 Troponin I 0.231 *H Lactic Acid Level 2.1 Basophils # Basophils % Differential Comment MANUAL DIFF Eosinophils # 0.0 Eosinophils % 1.0 Hematocrit 30.6 L Hemoglobin 9.3 L Lymphocytes # 0.6 L Lymphocytes % 13.0 L Mean Corpuscular Hemoglobin 33.6 H Mean Corpuscular Hemoglobin Concent 30.4 L Mean Corpuscular Volume 110.5 H Mean Platelet Volume 11.8 #H Monocytes # 0.1 L Monocytes % 3.0 Neutrophils # 4.0 Neutrophils % 83.0 H Nucleated Red Blood Cells # Nucleated Red Blood Cells % Platelet Count 57 L Platelet Estimate PLT APPEAR DECREASED Red Blood Count 2.77 L Red Cell Distribution Width 15.8 H White Blood Count 4.8 # Test 01/10/17 08:00 Activated Partial Thromboplast Time 81.7 *H INR International Normalized Ratio 0.91 Lactic Acid Level 0.7 Prothrombin Time 12.2 Prothrombin Time Ratio 1.0 Troponin I 0.259 *H Medications Medications Current Medications Amlodipine Besylate (Norvasc) 10 mg DAILY PO ; Start 01/10/17 at 09:00 Aspirin (Halfprin) 81 mg DAILY PO ; Start 01/10/17 at 09:00 Docusate Sodium (Colace) 100 mg BID PRN PO CONSTIPATION; Start 01/10/17 at 08: 30 Epoetin Costa (Epogen (Esrd)) 4,000 units MoWeFr@17 SC ; Start 01/10/17 at 17:00 Folic Acid (Folic Acid) 1 mg DAILY PO ; Start 01/10/17 at 09:00 Hydroxychloroquine Sulfate (Plaquenil) 200 mg BID PO ; Start 01/10/17 at 09:00 Metoprolol Succinate (Toprol Xl) 50 mg QHS PO ; Start 01/10/17 at 21:00 Naphazoline HCl/ Pheniramine Maleate (Visine-A) 1 drop QID BOTH EYES ; Start 08/19 at 09:00 Pantoprazole (Protonix Tab) 40 mg BID PO ; Start 01/10/17 at 09:00 Salmeterol Xinafoate/ Fluticasone (Advair 250/50 Diskus) 1 inh BID INH ; Start 01/10/17 at 09:00 Sucralfate (Carafate) 1 gm BID PO ; Start 01/10/17 at 09:00 Valsartan (Diovan) 160 mg DAILY PO ; Start 01/10/17 at 09:00 Vitamin B Complex/ Vitamin C (Berocca) 1 cap DAILY PO ; Start 01/10/17 at 09:00 Atorvastatin Calcium (Lipitor) 80 mg DAILY PO ; Start 01/10/17 at 09:00 Hydralazine HCl (Apresoline) 50 mg Q6 PO ; Start 01/10/17 at 12:00 Ondansetron HCl (Zofran Inj) 4 mg Q6H PRN IV NAUSEA AND/OR VOMITING; Start 08/19 at 08:30 Acetaminophen (Tylenol Tab) 650 mg Q6H PRN PO PAIN LEVEL 1-3 OR FEVER; Start at 08:30 Morphine Sulfate (morphine) 2 mg Q4H PRN IV PAIN LEVEL 7-10; Start 01/10/17 at 08:30 Enoxaparin Sodium 30 mg 30 mg DAILY SC ; Start 01/10/17 at 09:00; Status Future hold Nitroglycerin/ Dextrose (Nitroglycerin 50 Mg/D5W (Pmx)) 250 ml @ 0 mls/hr TITRATE IV ; Start 01/10/17 at 08:30 Procedures Procedures ECG demonstrates sinus rhythm at 71 bpm, right bundle branch block, left ventricular hypertrophy, nonspecific STT wave abnormalities Db Olea DO Jan 10, 2017 11:54
[2017-01-10 12:04] LABS: PARTIAL THROMBOPLASTIN TIME 27.4 Sec (25.0-35.0)
[2017-01-10] MEDS: SEVELAMER CARBONATE 0.8 GM PKT PO SCH ×2 (13:05→17:23)
--- NOTE | 2017-01-10 14:40 | RADRPT ---
Echocardiogram Report Patient Name: NATHALIE CARRILLO Gender: Female Date: 1940 Study Date: 10-Jan-2017 Lead Radiologic Technologist: Volodymyr Hough RDCS Location: 1 Ref. Physician: CINDY SHARMA Quality: Adequate Procedures: Transthoracic echocardiogram with complete 2D, M-Mode, and doppler examination. Indications: Chest Pain. 2D/M Mode Doppler Measurement Value Normal Ranges Measurement Value Normal Ranges LVIDd 2D 4.8 3.5 - 5.6 cm NADINE Vmax 2.0 cm2 LVIDs 2D 2.3 2.1 - 4.1 cm NADINE VTI 2.1 cm2 FS 2D 51.1 % AV Mean James 2.2 m/sec LVPWd 2D 0.9 0.6 - 1.1 cm AV Mean PG 23.0 mmHg IVSd 2D 1.0 0.6 - 1.1 cm AV Peak James 3.6 m/sec IVS/LVPW 2D 1.1 AV Peak PG 51.0 mmHg AoR Diam 2D 2.2 2.0 - 3.7 cm AV VTI 67.1 cm LA/Ao 2D 2 0 - 1 LVOT Mean James 1.4 m/sec EDV 2D 111.0 cm3 LVOT Mean PG 10.0 mmHg ESV 2D 13.0 cm3 LVOT Peak James 2.5 m/sec LA Dimen 2D 4.4 2.3 - 4.0 cm LVOT Peak PG 26.0 mmHg LVOT Diam 1.9 cm LVOT VTI 49.3 cm LVOT Area 2.8 cm2 MV E Peak James 1.4 m/sec MV A Peak James 0.6 m/sec MV E/A 2.2 MV Decel Time 141 msec MV E/A 2.2 TR Peak James 3.3 m/sec TR Peak PG 43.0 mmHg RVSP 58.0 mmHg Findings Left Ventricle: Normal left ventricular systolic function. Normal left ventricular cavity size. Mild concentric left ventricular hypertrophy. Ejection fraction is visually estimated at 55 %. Tissue Doppler/Mitral Doppler indices are consistent with pseudonormalization with mildly elevated left atrial pressure (Stage II diastolic dysfunction). Right Ventricle: Normal right ventricular size. Normal right ventricular systolic function. Left Atrium: There is severe enlargement of left atrium. Right Atrium: The right atrium is normal in size. Mitral Valve: Mild mitral leaflet calcification. Mild mitral annular calcification. Moderate mitral valve regurgitation. Aortic Valve: Moderate aortic stenosis. Aortic valve Max velocity 3.57 m/sec. Max PG 51.00 mmHg. Mean PG 23.00 mmHg. Aortic cusps appear moderately calcified. Trace aortic valve regurgitation. Tricuspid Valve: Normal appearance of the tricuspid valve. Estimated peak PA systolic pressure 58 mmHg. There is mild to moderate tricuspid regurgitation. Pulmonic Valve: Pulmonic valve not well visualized. There is mild pulmonic regurgitation. Pericardium: Normal pericardium with no significant pericardial effusion. Aorta: Normal aortic root. IVC: Dilated IVC without respiratory collapse consistent with elevated right atrial pressure. Conclusions 1.Normal left ventricular systolic function. Normal left ventricular cavity size. Mild concentric left ventricular hypertrophy. Ejection fraction is visually estimated at 55 %. Tissue Doppler/Mitral Doppler indices are consistent with pseudonormalization with mildly elevated left atrial pressure (Stage II diastolic dysfunction). 2.Normal right ventricular size. Normal right ventricular systolic function. 3.There is severe enlargement of left atrium. 4.The right atrium is normal in size. 5.Moderate mitral valve regurgitation. 6.Moderate aortic stenosis. Trace aortic valve regurgitation. 7.Estimated peak PA systolic pressure 58 mmHg. There is mild to moderate tricuspid regurgitation. 8.Normal pericardium with no significant pericardial effusion. Electronically Signed By: Db Olea 10-Jan-2017 14:39:54 -0800 Patient Name: NATHALIE CARRILLO Study Date: 10-Jan-2017 [id number]
[2017-01-10] MEDS: EPOETIN 4000 UNITS/1 ML INJ (ESRD) SC SCH (17:00)
[2017-01-10] MEDS: METOPROLOL (XL) 50 MG TAB PO SCH (21:00)
[2017-01-11] VITALS (41 sets, daily range): BP systolic 67–142; BP diastolic 35–109; PULSE 74–108; RESP 12–32
[2017-01-11] MEDS: ALBUTEROL/IPRATROPIUM (NEB) 3 ML AMP NEB SCH ×6 (00:09→20:18)
[2017-01-11] MEDS: morphine 2 MG INJ IV PRN ×2 (00:14→14:23)
[2017-01-11 05:39] LABS: AADO2 Arterial 604.2 mmHg (7.0-24.0); Arterial Base Excess 3.2 mmol/L (-3.0-3); Arterial COHb 0.3 % (0.0-3.0); Arterial Fraction of Oxyhgb 90.7 % (93.0-99.0); Arterial HCO3 27.5 mmol/L (22.0-26.0); Arterial MetHb 0.3 % (0.0-1.5); Arterial Total Hemglobin 8.4 g/dl (12.0-18.0); MODE MASK - NRB
[2017-01-11 05:42] LABS: ADD SCAN DIFF NO
--- NOTE | 2017-01-11 05:53 | RADRPT ---
PROCEDURE: XR Chest. CLINICAL INDICATION: SOB TECHNIQUE: Portable single view of the chest COMPARISON: 01/10 FINDINGS: Lung volumes are slightly improved. Cardiomegaly, aortic calcification, pacemaker, and dialysis cat heter remain in place. The appearance of the heart lungs is otherwise unchanged with right perihila r and bibasilar infiltrates with probable effusions. IMPRESSION: Slightly improved lung volumes. Otherwise stable exam. RPTAT: HLBE Roma Neal Physician Date Time Electronically viewed and signed by Roma Neal, Physician on 01/11/2017 05:52 LE/
[2017-01-11 05:57] LABS: ABNORMAL IP MESSAGE 1; BASOPHILS % 0.2 % (0.0-2.0); EOSINOPHILS % 0.1 % (0.0-7.0); HEMATOCRIT 26.9 % (37.0-47.0); HEMOGLOBIN 8.2 g/dl (12.0-16.0); LYMPHOCYTES # 0.3 10^3/ul (0.8-2.9); LYMPHOCYTES % 2.3 % (15.0-51.0); MEAN CORPUSCULAR HGB CONC 30.5 g/dl (32.0-37.0); MEAN CORPUSCULAR VOLUME 111.6 fl (82.0-101.0); MEAN PLATELET VOLUME 10.6 fl (7.4-10.4); MONOCYTES % 7.4 % (0.0-11.0); NEUTROPHIL # 11.8 10^3/ul (1.6-7.5); NEUTROPHILS % 89.5 % (39.0-77.0); PLATELET COUNT 147 10^3/UL (140-415); RED BLOOD COUNT 2.41 10^6/ul (4.20-5.40); RED CELL DISTRIBUTION WIDTH 15.8 % (11.5-14.5); WHITE BLOOD COUNT 13.1 10^3/ul (4.8-10.8)
[2017-01-11] MEDS: LEVOTHYROXINE 50 MCG TAB PO SCH (06:11)
[2017-01-11 06:45] LABS: ALBUMIN 3.3 g/dl (3.3-4.9); POTASSIUM 3.1 mmol/L (3.5-5.1)
[2017-01-11 06:47] LABS: CREATININE 2.08 mg/dl (0.44-1.00)
[2017-01-11 06:48] LABS: ALBUMIN/GLOBULIN RATIO 1.06; BILIRUBIN,INDIRECT 0.1 mg/dl (0-1.1); BILIRUBIN,TOTAL 0.1 mg/dl (0.2-1.3); CALCIUM 8.3 mg/dl (8.4-10.2); TOTAL PROTEIN 6.4 g/dl (6.1-8.1)
[2017-01-11] MEDS: SEVELAMER CARBONATE 0.8 GM PKT PO SCH ×3 (07:47→17:59)
[2017-01-11] MEDS: ASPIRIN (EC) 81 MG TAB PO SCH (08:12)
[2017-01-11] MEDS: PANTOPRAZOLE (EC) 40 MG TAB PO SCH ×2 (08:12→21:37)
[2017-01-11] MEDS: VITAMIN B COMPLEX/VIT C CAP PO SCH (08:12)
[2017-01-11] MEDS: SALMETEROL/FLUTICASONE 250/50 INHA INH SCH ×2 (08:12→21:38)
[2017-01-11] MEDS: FOLIC ACID 1 MG TAB PO SCH (08:12)
[2017-01-11] MEDS: NAPHAZOLINE/PHENIRAMINE 15 ML OPH BOTH EYES SCH ×4 (08:12→21:38)
[2017-01-11] MEDS: AMLODIPINE 10 MG TAB PO SCH (08:13)
[2017-01-11] MEDS: VALSARTAN 160 MG TAB PO SCH (08:14)
[2017-01-11] MEDS: SUCRALFATE 1 GM TAB PO SCH ×2 (08:19→21:37)
[2017-01-11] MEDS: HYDROXYCHLOROQUINE 200 MG TAB PO SCH ×2 (08:19→21:37)
[2017-01-11] MEDS: ATORVASTATIN 80 MG TAB PO SCH (08:19)
[2017-01-11] MEDS: ENOXAPARIN 30 MG/0.3 ML SYG SC SCH (08:26)
--- NOTE | 2017-01-11 09:04 | PN ---
Date/Time of Note Date/Time of Note DATE: 01/11/17 TIME: 08:56 Assessment/Plan VTE Prophylaxis VTE Prophylaxis Intervention: LMWH Lines/Catheters IV Catheter Type (from Nrs): Peripheral IV Urinary Cath still in place: No Assessment/Plan Chief Complaint/Hosp Course CHF/volume overload CM ESRD.on HD Repeat HD today transfer to tele if resp status improved Problems: Subjective 24 Hr Interval Summary Free Text/Dictation no complaints. feels better Exam/Review of Systems Vital Signs Vitals Vital Signs Date Time Temp Pulse Resp B/P Pulse Ox O2 Delivery O2 Flow Rate FiO2 01/11/17 08:00 91 01/11/17 06:00 23 106/50 100 Non Rebreather 01/11/17 04:26 15.0 01/11/17 04:00 98.4 01/10/17 18:45 100 Intake and Output 01/10/17 01/10/17 01/11/17 15:00 23:00 07:00 Intake Total 625 ml 35 ml Output Total 3500 ml Balance -2875 ml 35 ml Exam Constitutional: alert, oriented, well developed Psych: no complaints Head: atraumatic, normocephalic Eyes: EOMI, nl conjunctiva Neck: non-tender, supple Respiratory: diminished breath sounds Cardiovascular: regular rate and rhythm Gastrointestinal: bowel sounds, non-tender, soft Extremities: edema Neurological: nl mental status Results Result Diagram: 01/11/17 0520 01/11/17 0520 Results 24 hrs Laboratory Tests Test 01/10/17 13:40 01/11/17 03:20 01/11/17 05:20 Lactic Acid Level 0.7 Arterial Blood HCO3 27.5 H Arterial Blood Base Excess 3.2 H Arterial Blood Oxygen Saturation 91.2 L Sukhi Test N/A Arterial Blood Gas Puncture Site Right Brachial Arterial Blood Carboxyhemoglobin 0.3 Arterial Blood Date Drawn 01/11/2017 5:10:13 AM Arterial Blood Methemoglobin 0.3 Arterial Blood pCO2 (Temp correct) 40.9 Arterial Blood pH (Temp corrected) 7.446 Arterial Blood pO2 (Temp corrected) 67.9 L Blood Gas A-a O2 Differential 604.2 H Blood Gas Modality MASK - NRB Blood Gas Notified Time 01/11/2017 5:39:21 AM Blood Gas Notified Whom [place] Blood Gas Specimen Source Blood arterial Blood Gas Temperature 37.0 FiO2 100.0 Oxyhemoglobin Percent 90.7 L Total Hemoglobin 8.4 L Alanine Aminotransferase (ALT/SGPT) 26 Albumin 3.3 Albumin/Globulin Ratio 1.06 Alkaline Phosphatase 114 Anion Gap 15 # Aspartate Amino Transf (AST/SGOT) 35 Basophils # 0.0 Basophils % 0.2 Blood Urea Nitrogen 19 # Calcium Level 8.3 L Carbon Dioxide Level 31 Chloride Level 99 Creatinine 2.08 H Direct Bilirubin 0.00 Eosinophils # 0.0 Eosinophils % 0.1 Globulin 3.10 Glucose Level 95 Hematocrit 26.9 L Hemoglobin 8.2 L Indirect Bilirubin 0.1 Lymphocytes # 0.3 L Lymphocytes % 2.3 L Mean Corpuscular Hemoglobin 34.0 H Mean Corpuscular Hemoglobin Concent 30.5 L Mean Corpuscular Volume 111.6 H Mean Platelet Volume 10.6 H Monocytes # 1.0 H Monocytes % 7.4 Neutrophils # 11.8 H Neutrophils % 89.5 H Nucleated Red Blood Cells # 0.0 Nucleated Red Blood Cells % 0.0 Platelet Count 147 # Potassium Level 3.1 L Red Blood Count 2.41 L Red Cell Distribution Width 15.8 H Sodium Level 142 Total Bilirubin 0.1 L Total Protein 6.4 White Blood Count 13.1 #H Medications Medications Current Medications Amlodipine Besylate (Norvasc) 10 mg DAILY PO ; Start 01/10/17 at 09:00 Aspirin (Halfprin) 81 mg DAILY PO Last administered on 01/11/17 08:12; Admin Dose 81 MG; Start 01/10/17 at 09:00 Docusate Sodium (Colace) 100 mg BID PRN PO CONSTIPATION; Start 01/10/17 at 08: 30 Epoetin Costa (Epogen (Esrd)) 4,000 units MoWeFr@17 SC ; Start 01/10/17 at 17:00 Folic Acid (Folic Acid) 1 mg DAILY PO Last administered on 01/11/17 08:12; Admin Dose 1 MG; Start 01/10/17 at 09:00 Hydroxychloroquine Sulfate (Plaquenil) 200 mg BID PO Last administered on 08:19; Admin Dose 200 MG; Start 01/10/17 at 09:00 Metoprolol Succinate (Toprol Xl) 50 mg QHS PO ; Start 01/10/17 at 21:00 Naphazoline HCl/ Pheniramine Maleate (Visine-A) 1 drop QID BOTH EYES Last administered on 01/11/17 08:12; Admin Dose 1 DROP; Start 01/10/17 at 09:00 Pantoprazole (Protonix Tab) 40 mg BID PO Last administered on 01/11/17 08:12; Admin Dose 40 MG; Start 01/10/17 at 09:00 Salmeterol Xinafoate/ Fluticasone (Advair 250/50 Diskus) 1 inh BID INH Last administered on 01/11/17 08:12; Admin Dose 1 INH; Start 01/10/17 at 09:00 Sucralfate (Carafate) 1 gm BID PO Last administered on 01/11/17 08:19; Admin Dose 1 GM; Start 01/10/17 at 09:00 Valsartan (Diovan) 160 mg DAILY PO ; Start 01/10/17 at 09:00 Vitamin B Complex/ Vitamin C (Berocca) 1 cap DAILY PO Last administered on 01/11 08:12; Admin Dose 1 CAP; Start 01/10/17 at 09:00 Atorvastatin Calcium (Lipitor) 80 mg DAILY PO Last administered on 01/11/17 08 :19; Admin Dose 80 MG; Start 01/10/17 at 09:00 Hydralazine HCl (Apresoline) 50 mg Q6 PO Last administered on 01/10/17 23:10; Admin Dose 50 MG; Start 01/10/17 at 12:00 Ondansetron HCl (Zofran Inj) 4 mg Q6H PRN IV NAUSEA AND/OR VOMITING; Start 08/19 at 08:30 Acetaminophen (Tylenol Tab) 650 mg Q6H PRN PO PAIN LEVEL 1-3 OR FEVER; Start at 08:30 Morphine Sulfate (morphine) 2 mg Q4H PRN IV PAIN LEVEL 7-10 Last administered on 01/11/17 00:14; Admin Dose 2 MG; Start 01/10/17 at 08:30 Enoxaparin Sodium 30 mg 30 mg DAILY SC Last administered on 01/11/17 08:26; Admin Dose 30 MG; Start 01/10/17 at 09:00; Status Future hold Nitroglycerin/ Dextrose (Nitroglycerin 50 Mg/D5W (Pmx)) 250 ml @ 0 mls/hr TITRATE IV ; Start 01/10/17 at 08:30 SIMONE CEJA MD Jan 11, 2017 09:04
--- NOTE | 2017-01-11 10:06 | CONS ---
Date/Time of Note Date/Time of Note DATE: 01/11/17 TIME: 10:02 Assessment/Plan Assessment/Plan Additional Assessment/Plan She was reviewed from today which is again showing bilateral pulmonary edema difficult to rule out superimposed pneumonia. Sternal wires are again identified. There is a pacemaker in the right chest wall. Next Assessment recommendations; 1. Patient admitted with respiratory failure due to missing on hemodialysis session status post hemodialysis yesterday however chest x-ray still showing diffuse infiltrates possibly suggestive of superimposed pneumonia. Patient also has increasing leukocytosis. 2. History of end-stage renal disease. 3. History of cardiac arrhythmia and coronary artery bypass surgery in the past. 4. Thrombocytopenia with improved platelet count. 5. Anemia. 6. History of left breast cancer. 7. History of hypothyroidism. Continue current treatment. Add cefepime and vancomycin. Obtain a follow-up chest x-ray in 48 hours. Consultation Date/Type/Reason Admit Date/Time Jan 10, 2017 at 10:56 Initial Consult Date 01/10/17 Type of Consultation: Pulmonary/critical care Referring Provider: CINDY SHARMA MD 24 HR Interval Summary Free Text/Dictation Patient condition remains tenuous at best. Still requiring nonrebreather mask for O2 saturation maintenance. Patient however is quite awake and alert. General exam; elderly lady, awake currently in no distress. Exam/Review of Systems Vital Signs Vitals Vital Signs Date Time Temp Pulse Resp B/P Pulse Ox O2 Delivery O2 Flow Rate FiO2 01/11/17 09:14 73 16 100 Non Rebreather Mask 15.0 100 01/11/17 06:00 106/50 01/11/17 04:00 98.4 Intake and Output 01/10/17 01/10/17 01/11/17 15:00 23:00 07:00 Intake Total 625 ml 35 ml Output Total 3500 ml Balance -2875 ml 35 ml Exam HEENT ; supple neck, positive JVD. Bilateral intraocular lens implants are present. Patient is edentulous. No lymph adenopathy. No thyromegaly. Chest examination; diminished breath sounds throughout. There is a well-healed sternal scar. Patient has kyphoscoliosis. S1-S2 audible, no murmurs. Regular rhythm. There is a pacemaker in the right chest wall. Abdomen examination; soft, nontender. No organomegaly. Bowel sounds audible. Extremity examination; no peripheral edema. ACCOUNT MANAGEMENT ASSISTANT examination a micro patient is awake moves all 4 extremities. Results Result Diagram: 01/11/17 0520 01/11/17 0520 Results 24 hrs Laboratory Tests Test 01/10/17 13:40 01/11/17 03:20 01/11/17 05:20 Lactic Acid Level 0.7 Arterial Blood HCO3 27.5 H Arterial Blood Base Excess 3.2 H Arterial Blood Oxygen Saturation 91.2 L Sukhi Test N/A Arterial Blood Gas Puncture Site Right Brachial Arterial Blood Carboxyhemoglobin 0.3 Arterial Blood Date Drawn 01/11/2017 5:10:13 AM Arterial Blood Methemoglobin 0.3 Arterial Blood pCO2 (Temp correct) 40.9 Arterial Blood pH (Temp corrected) 7.446 Arterial Blood pO2 (Temp corrected) 67.9 L Blood Gas A-a O2 Differential 604.2 H Blood Gas Modality MASK - NRB Blood Gas Notified Time 01/11/2017 5:39:21 AM Blood Gas Notified Whom [place] Blood Gas Specimen Source Blood arterial Blood Gas Temperature 37.0 FiO2 100.0 Oxyhemoglobin Percent 90.7 L Total Hemoglobin 8.4 L Alanine Aminotransferase (ALT/SGPT) 26 Albumin 3.3 Albumin/Globulin Ratio 1.06 Alkaline Phosphatase 114 Anion Gap 15 # Aspartate Amino Transf (AST/SGOT) 35 Basophils # 0.0 Basophils % 0.2 Blood Urea Nitrogen 19 # Calcium Level 8.3 L Carbon Dioxide Level 31 Chloride Level 99 Creatinine 2.08 H Direct Bilirubin 0.00 Eosinophils # 0.0 Eosinophils % 0.1 Globulin 3.10 Glucose Level 95 Hematocrit 26.9 L Hemoglobin 8.2 L Indirect Bilirubin 0.1 Lymphocytes # 0.3 L Lymphocytes % 2.3 L Mean Corpuscular Hemoglobin 34.0 H Mean Corpuscular Hemoglobin Concent 30.5 L Mean Corpuscular Volume 111.6 H Mean Platelet Volume 10.6 H Monocytes # 1.0 H Monocytes % 7.4 Neutrophils # 11.8 H Neutrophils % 89.5 H Nucleated Red Blood Cells # 0.0 Nucleated Red Blood Cells % 0.0 Platelet Count 147 # Potassium Level 3.1 L Red Blood Count 2.41 L Red Cell Distribution Width 15.8 H Sodium Level 142 Total Bilirubin 0.1 L Total Protein 6.4 White Blood Count 13.1 #H Medications Medications Current Medications Amlodipine Besylate (Norvasc) 10 mg DAILY PO ; Start 01/10/17 at 09:00 Aspirin (Halfprin) 81 mg DAILY PO Last administered on 01/11/17 08:12; Admin Dose 81 MG; Start 01/10/17 at 09:00 Docusate Sodium (Colace) 100 mg BID PRN PO CONSTIPATION; Start 01/10/17 at 08: 30 Epoetin Costa (Epogen (Esrd)) 4,000 units MoWeFr@17 SC ; Start 01/10/17 at 17:00 Folic Acid (Folic Acid) 1 mg DAILY PO Last administered on 01/11/17 08:12; Admin Dose 1 MG; Start 01/10/17 at 09:00 Hydroxychloroquine Sulfate (Plaquenil) 200 mg BID PO Last administered on 08:19; Admin Dose 200 MG; Start 01/10/17 at 09:00 Metoprolol Succinate (Toprol Xl) 50 mg QHS PO ; Start 01/10/17 at 21:00 Naphazoline HCl/ Pheniramine Maleate (Visine-A) 1 drop QID BOTH EYES Last administered on 01/11/17 08:12; Admin Dose 1 DROP; Start 01/10/17 at 09:00 Pantoprazole (Protonix Tab) 40 mg BID PO Last administered on 01/11/17 08:12; Admin Dose 40 MG; Start 01/10/17 at 09:00 Salmeterol Xinafoate/ Fluticasone (Advair 250/50 Diskus) 1 inh BID INH Last administered on 01/11/17 08:12; Admin Dose 1 INH; Start 01/10/17 at 09:00 Sucralfate (Carafate) 1 gm BID PO Last administered on 01/11/17 08:19; Admin Dose 1 GM; Start 01/10/17 at 09:00 Valsartan (Diovan) 160 mg DAILY PO ; Start 01/10/17 at 09:00 Vitamin B Complex/ Vitamin C (Berocca) 1 cap DAILY PO Last administered on 01/11 08:12; Admin Dose 1 CAP; Start 01/10/17 at 09:00 Atorvastatin Calcium (Lipitor) 80 mg DAILY PO Last administered on 01/11/17 08 :19; Admin Dose 80 MG; Start 01/10/17 at 09:00 Hydralazine HCl (Apresoline) 50 mg Q6 PO Last administered on 01/10/17 23:10; Admin Dose 50 MG; Start 01/10/17 at 12:00 Ondansetron HCl (Zofran Inj) 4 mg Q6H PRN IV NAUSEA AND/OR VOMITING; Start 08/19 at 08:30 Acetaminophen (Tylenol Tab) 650 mg Q6H PRN PO PAIN LEVEL 1-3 OR FEVER; Start at 08:30 Morphine Sulfate (morphine) 2 mg Q4H PRN IV PAIN LEVEL 7-10 Last administered on 01/11/17 00:14; Admin Dose 2 MG; Start 01/10/17 at 08:30 Enoxaparin Sodium 30 mg 30 mg DAILY SC Last administered on 01/11/17 08:26; Admin Dose 30 MG; Start 01/10/17 at 09:00; Status Future hold Nitroglycerin/ Dextrose (Nitroglycerin 50 Mg/D5W (Pmx)) 250 ml @ 0 mls/hr TITRATE IV ; Start 01/10/17 at 08:30 TONY MEHTA Jan 11, 2017 10:05
[2017-01-11] MEDS ORDERED: VANCOMYCIN IV PER PHARMACY XX SCH (10:30)
[2017-01-11] MEDS ORDERED: VANCOMYCIN 1 GM in NS 250 ML IVPB SCH (10:30)
[2017-01-11] MEDS: CEFEPIME 1GM/50 ML (PMX) 50 ML IVPB SCH (11:59)
[2017-01-11 13:59] LABS: OVALOCYTES FEW
[2017-01-11] MEDS ORDERED: VANCOMYCIN 1 GM in NS 250 ML IVPB ONE (14:00)
[2017-01-11] MEDS ORDERED: LORAZEPAM 2 MG INJ IV PRN (20:00)
[2017-01-11] MEDS: METOPROLOL (XL) 50 MG TAB PO SCH (21:00)
--- NOTE | 2017-01-11 21:50 | CONS ---
Date/Time of Note Date/Time of Note DATE: 01/11/17 TIME: 21:44 Assessment/Plan Assessment/Plan Additional Assessment/Plan In light of CXR still showing CHF, will dialyze today with dry UF Will monitor pulm status & orfder future dialysis as needed Over pt remains a diff problem, isac has a supportive family who want every thing done Consultation Date/Type/Reason Admit Date/Time Jan 10, 2017 at 10:56 Initial Consult Date 01/10/17 Type of Consultation: renal Referring Provider: CINDY SHARMA MD Exam/Review of Systems Vital Signs Vitals Vital Signs Date Time Temp Pulse Resp B/P Pulse Ox O2 Delivery O2 Flow Rate FiO2 01/11/17 20:20 100 6.0 01/11/17 20:19 98 18 Simple Mask 01/11/17 18:00 137/78 01/11/17 16:00 98.9 01/11/17 09:14 100 Intake and Output 01/10/17 01/10/17 01/11/17 15:00 23:00 07:00 Intake Total 625 ml 35 ml Output Total 3500 ml Balance -2875 ml 35 ml Exam Constitutional: alert, oriented, well developed Psych: nl mood/affect, no complaints Head: atraumatic, normocephalic Eyes: EOMI, PERRL, nl conjunctiva, nl lids, nl sclera ENMT: nl external ears & nose, nl lips & teeth, nl nasal mucosa & septum, other (pale conj) Neck: other (stiff) Respiratory: clear to auscultation, normal air movement, other (rt chest wall permacath in place) Cardiovascular: nl pulses, regular rate and rhythm Gastrointestinal: nl liver, spleen, non-tender, soft Musculoskeletal: nl extremities to inspection, nl gait and stance Extremities: other Neurological: CRA OFFICER II-XII intact, nl mental status, nl speech, nl strength Skin: nl turgor, No rash or lesions Lymph: nl lymph nodes Results Result Diagram: 01/11/17 0520 01/11/17 0520 Results 24 hrs Laboratory Tests Test 01/11/17 03:20 01/11/17 05:20 Arterial Blood HCO3 27.5 H Arterial Blood Base Excess 3.2 H Arterial Blood Oxygen Saturation 91.2 L Sukhi Test N/A Arterial Blood Gas Puncture Site Right Brachial Arterial Blood Carboxyhemoglobin 0.3 Arterial Blood Date Drawn 01/11/2017 5:10:13 AM Arterial Blood Methemoglobin 0.3 Arterial Blood pCO2 (Temp correct) 40.9 Arterial Blood pH (Temp corrected) 7.446 Arterial Blood pO2 (Temp corrected) 67.9 L Blood Gas A-a O2 Differential 604.2 H Blood Gas Modality MASK - NRB Blood Gas Notified Time 01/11/2017 5:39:21 AM Blood Gas Notified Whom [place] Blood Gas Specimen Source Blood arterial Blood Gas Temperature 37.0 FiO2 100.0 Oxyhemoglobin Percent 90.7 L Total Hemoglobin 8.4 L Alanine Aminotransferase (ALT/SGPT) 26 Albumin 3.3 Albumin/Globulin Ratio 1.06 Alkaline Phosphatase 114 Anion Gap 15 # Aspartate Amino Transf (AST/SGOT) 35 Basophils # 0.0 Basophils % 0.2 Blood Urea Nitrogen 19 # Calcium Level 8.3 L Carbon Dioxide Level 31 Chloride Level 99 Creatinine 2.08 H Direct Bilirubin 0.00 Eosinophils # 0.0 Eosinophils % 0.1 Globulin 3.10 Glucose Level 95 Hematocrit 26.9 L Hemoglobin 8.2 L Indirect Bilirubin 0.1 Lymphocytes # 0.3 L Lymphocytes % 2.3 L Macrocytosis 2+ Mean Corpuscular Hemoglobin 34.0 H Mean Corpuscular Hemoglobin Concent 30.5 L Mean Corpuscular Volume 111.6 H Mean Platelet Volume 10.6 H Monocytes # 1.0 H Monocytes % 7.4 Neutrophils # 11.8 H Neutrophils % 89.5 H Nucleated Red Blood Cells # 0.0 Nucleated Red Blood Cells % 0.0 Ovalocytes FEW Platelet Count 147 # Potassium Level 3.1 L Red Blood Count 2.41 L Red Cell Distribution Width 15.8 H Sodium Level 142 Total Bilirubin 0.1 L Total Protein 6.4 White Blood Count 13.1 #H Medications Medications Current Medications Amlodipine Besylate (Norvasc) 10 mg DAILY PO ; Start 01/10/17 at 09:00 Aspirin (Halfprin) 81 mg DAILY PO Last administered on 01/11/17t 08:12; Admin Dose 81 MG; Start 01/10/17 at 09:00 Docusate Sodium (Colace) 100 mg BID PRN PO CONSTIPATION; Start 01/10/17 at 08: 30 Epoetin Costa (Epogen (Esrd)) 4,000 units MoWeFr@17 SC ; Start 01/10/17 at 17:00 Folic Acid (Folic Acid) 1 mg DAILY PO Last administered on 01/11/17 08:12; Admin Dose 1 MG; Start 01/10/17 at 09:00 Hydroxychloroquine Sulfate (Plaquenil) 200 mg BID PO Last administered on 21:37; Admin Dose 200 MG; Start 01/10/17 at 09:00 Metoprolol Succinate (Toprol Xl) 50 mg QHS PO ; Start 01/10/17 at 21:00 Naphazoline HCl/ Pheniramine Maleate (Visine-A) 1 drop QID BOTH EYES Last administered on 01/11/17 21:38; Admin Dose 1 DROP; Start 01/10/17 at 09:00 Pantoprazole (Protonix Tab) 40 mg BID PO Last administered on 01/11/17 21:37; Admin Dose 40 MG; Start 01/10/17 at 09:00 Salmeterol Xinafoate/ Fluticasone (Advair 250/50 Diskus) 1 inh BID INH Last administered on 01/11/17 21:38; Admin Dose 1 INH; Start 01/10/17 at 09:00 Sucralfate (Carafate) 1 gm BID PO Last administered on 01/11/17 21:37; Admin Dose 1 GM; Start 01/10/17 at 09:00 Valsartan (Diovan) 160 mg DAILY PO ; Start 01/10/17 at 09:00 Vitamin B Complex/ Vitamin C (Berocca) 1 cap DAILY PO Last administered on 01/11 08:12; Admin Dose 1 CAP; Start 01/10/17 at 09:00 Atorvastatin Calcium (Lipitor) 80 mg DAILY PO Last administered on 01/11/17 08 :19; Admin Dose 80 MG; Start 01/10/17 at 09:00 Hydralazine HCl (Apresoline) 50 mg Q6 PO Last administered on 01/10/17 23:10; Admin Dose 50 MG; Start 01/10/17 at 12:00 Ondansetron HCl (Zofran Inj) 4 mg Q6H PRN IV NAUSEA AND/OR VOMITING; Start 08/19 at 08:30 Acetaminophen (Tylenol Tab) 650 mg Q6H PRN PO PAIN LEVEL 1-3 OR FEVER; Start at 08:30 Morphine Sulfate (morphine) 2 mg Q4H PRN IV PAIN LEVEL 7-10 Last administered on 01/11/17 14:23; Admin Dose 2 MG; Start 01/10/17 at 08:30 Enoxaparin Sodium 30 mg 30 mg DAILY SC Last administered on 01/11/17 08:26; Admin Dose 30 MG; Start 01/10/17 at 09:00; Status Future hold Nitroglycerin/ Dextrose 250 ml @ 0 mls/hr TITRATE IV ; Start 01/10/17 at 08:30 Cefepime HCl (Maxipime 1gm/50 ml (Pmx)) 50 ml @ 100 mls/hr Q24H IVPB Last administered on 01/11/17 11:59; Admin Dose 100 MLS/HR; Start 01/11/17 at 12:00 Lorazepam (Ativan) 0.5 mg Q4H PRN IV for anxiety/agitation Last administered on 01/11/17 21:39; Admin Dose 0.5 MG; Start 01/11/17 at 20:00 DIANA KAMARA MD Jan 11, 2017 21:50
[2017-01-11] MEDS ORDERED: FLUMAZENIL 0.5 MG INJ IV STA (23:11)
[2017-01-11] MEDS ORDERED: HALOPERIDOL 5 MG INJ IM PRN (23:30)
[2017-01-12] VITALS (25 sets, daily range): BP systolic 82–155; BP diastolic 36–70; PULSE 74–91; RESP 14–33
[2017-01-12] MEDS: ALBUTEROL/IPRATROPIUM (NEB) 3 ML AMP NEB SCH ×6 (00:17→20:38)
[2017-01-12 07:58] LABS: ADD SCAN DIFF NO
[2017-01-12 08:03] LABS: ABNORMAL IP MESSAGE 1; BASOPHILS % 0.2 % (0.0-2.0); EOSINOPHILS # 0.1 10^3/ul (0.0-0.5); EOSINOPHILS % 1.5 % (0.0-7.0); HEMATOCRIT 25.7 % (37.0-47.0); HEMOGLOBIN 7.6 g/dl (12.0-16.0); LYMPHOCYTES # 0.4 10^3/ul (0.8-2.9); LYMPHOCYTES % 6.8 % (15.0-51.0); MEAN CORPUSCULAR HEMOGLOBIN 33.9 pg (29.0-33.0); MEAN CORPUSCULAR HGB CONC 29.6 g/dl (32.0-37.0); MEAN CORPUSCULAR VOLUME 114.7 fl (82.0-101.0); MEAN PLATELET VOLUME 9.8 fl (7.4-10.4); MONOCYTE # 0.3 10^3/ul (0.3-0.9); MONOCYTES % 5.7 % (0.0-11.0); NEUTROPHIL # 5.1 10^3/ul (1.6-7.5); NEUTROPHILS % 85.5 % (39.0-77.0); PLATELET COUNT 107 10^3/UL (140-415); RED BLOOD COUNT 2.24 10^6/ul (4.20-5.40)
[2017-01-12] MEDS: SEVELAMER CARBONATE 0.8 GM PKT PO SCH ×3 (08:26→18:08)
[2017-01-12] MEDS: LEVOTHYROXINE 50 MCG TAB PO SCH (08:26)
[2017-01-12 08:27] LABS: POTASSIUM 3.5 mmol/L (3.5-5.1)
[2017-01-12 08:30] LABS: CREATININE 2.07 mg/dl (0.44-1.00)
[2017-01-12 08:31] LABS: CALCIUM 8.7 mg/dl (8.4-10.2)
[2017-01-12] MEDS: VALSARTAN 160 MG TAB PO SCH (09:00)
--- NOTE | 2017-01-12 09:17 | PN ---
Date/Time of Note Date/Time of Note DATE: 01/12/17 TIME: 09:12 Assessment/Plan VTE Prophylaxis VTE Prophylaxis Intervention: LMWH Lines/Catheters IV Catheter Type (from Nrs): Peripheral IV Urinary Cath still in place: No Assessment/Plan Chief Complaint/Hosp Course CHF/volume overload CM ESRD.on HD hypernatremia transfer [facility] continue HD avoid benzo since pt became extremely lethargic Problems: Subjective 24 Hr Interval Summary Constitutional: no complaints Exam/Review of Systems Vital Signs Vitals Vital Signs Date Time Temp Pulse Resp B/P Pulse Ox O2 Delivery O2 Flow Rate FiO2 01/12/17 08:39 100 22 10 Simple Mask 6.0 01/12/17 06:00 94/51 01/12/17 04:00 98.7 01/11/17 09:14 100 Intake and Output 01/11/17 01/11/17 01/12/17 15:00 23:00 07:00 Intake Total 750 ml 450 ml 40 ml Output Total 3500 ml Balance -2750 ml 450 ml 40 ml Exam Constitutional: alert Neck: non-tender, supple Respiratory: congested cough, normal air movement Cardiovascular: regular rate and rhythm Gastrointestinal: bowel sounds, non-tender, soft Extremities: normal pulses Results Result Diagram: 01/12/17 0755 01/12/17 0755 Results 24 hrs Laboratory Tests Test 01/12/17 07:55 Anion Gap 16 Basophils # 0.0 Basophils % 0.2 Blood Urea Nitrogen 19 Calcium Level 8.7 Carbon Dioxide Level 29 Chloride Level 107 Creatinine 2.07 H Eosinophils # 0.1 Eosinophils % 1.5 Glucose Level 74 Hematocrit 25.7 L Hemoglobin 7.6 L Lymphocytes # 0.4 L Lymphocytes % 6.8 L Mean Corpuscular Hemoglobin 33.9 H Mean Corpuscular Hemoglobin Concent 29.6 L Mean Corpuscular Volume 114.7 H Mean Platelet Volume 9.8 Monocytes # 0.3 Monocytes % 5.7 Neutrophils # 5.1 Neutrophils % 85.5 H Nucleated Red Blood Cells # 0.0 Nucleated Red Blood Cells % 0.0 Platelet Count 107 #L Potassium Level 3.5 Red Blood Count 2.24 L Red Cell Distribution Width 16.0 H Sodium Level 148 H White Blood Count 6.0 # Medications Medications Current Medications Aspirin (Halfprin) 81 mg DAILY PO Last administered on 01/11/17t 08:12; Admin Dose 81 MG; Start 01/10/17 at 09:00 Docusate Sodium (Colace) 100 mg BID PRN PO CONSTIPATION; Start 01/10/17 at 08: 30 Epoetin Costa (Epogen (Esrd)) 4,000 units MoWeFr@17 SC ; Start 01/10/17 at 17:00 Folic Acid (Folic Acid) 1 mg DAILY PO Last administered on 01/11/17 08:12; Admin Dose 1 MG; Start 01/10/17 at 09:00 Hydroxychloroquine Sulfate (Plaquenil) 200 mg BID PO Last administered on 21:37; Admin Dose 200 MG; Start 01/10/17 at 09:00 Metoprolol Succinate (Toprol Xl) 50 mg QHS PO ; Start 01/10/17 at 21:00 Naphazoline HCl/ Pheniramine Maleate (Visine-A) 1 drop QID BOTH EYES Last administered on 01/11/17 21:38; Admin Dose 1 DROP; Start 01/10/17 at 09:00 Pantoprazole (Protonix Tab) 40 mg BID PO Last administered on 01/11/17 21:37; Admin Dose 40 MG; Start 01/10/17 at 09:00 Salmeterol Xinafoate/ Fluticasone (Advair 250/50 Diskus) 1 inh BID INH Last administered on 01/11/17 21:38; Admin Dose 1 INH; Start 01/10/17 at 09:00 Sucralfate (Carafate) 1 gm BID PO Last administered on 01/11/17 21:37; Admin Dose 1 GM; Start 01/10/17 at 09:00 Valsartan (Diovan) 160 mg DAILY PO ; Start 01/10/17 at 09:00 Vitamin B Complex/ Vitamin C (Berocca) 1 cap DAILY PO Last administered on 01/11 08:12; Admin Dose 1 CAP; Start 01/10/17 at 09:00 Atorvastatin Calcium (Lipitor) 80 mg DAILY PO Last administered on 01/11/17 08 :19; Admin Dose 80 MG; Start 01/10/17 at 09:00 Hydralazine HCl (Apresoline) 50 mg Q6 PO Last administered on 01/10/17 23:10; Admin Dose 50 MG; Start 01/10/17 at 12:00 Ondansetron HCl (Zofran Inj) 4 mg Q6H PRN IV NAUSEA AND/OR VOMITING; Start 08/19 at 08:30 Acetaminophen (Tylenol Tab) 650 mg Q6H PRN PO PAIN LEVEL 1-3 OR FEVER; Start at 08:30 Morphine Sulfate (morphine) 2 mg Q4H PRN IV PAIN LEVEL 7-10 Last administered on 01/11/17 14:23; Admin Dose 2 MG; Start 01/10/17 at 08:30 Enoxaparin Sodium 30 mg 30 mg DAILY SC Last administered on 01/11/17 08:26; Admin Dose 30 MG; Start 01/10/17 at 09:00; Status Future hold Nitroglycerin/ Dextrose 250 ml @ 0 mls/hr TITRATE IV ; Start 01/10/17 at 08:30 Cefepime HCl (Maxipime 1gm/50 ml (Pmx)) 50 ml @ 100 mls/hr Q24H IVPB Last administered on 01/11/17 11:59; Admin Dose 100 MLS/HR; Start 01/11/17 at 12:00 Haloperidol (Haldol) 1 mg Q6 PRN IM agitation; Start 01/11/17 at 23:30 SIMONE CEJA MD Jan 12, 2017 09:17
[2017-01-12] MEDS: NAPHAZOLINE/PHENIRAMINE 15 ML OPH BOTH EYES SCH ×4 (09:19→21:24)
[2017-01-12] MEDS: SALMETEROL/FLUTICASONE 250/50 INHA INH SCH ×2 (09:19→21:25)
[2017-01-12] MEDS: SUCRALFATE 1 GM TAB PO SCH ×2 (09:20→21:26)
[2017-01-12] MEDS: VITAMIN B COMPLEX/VIT C CAP PO SCH (09:20)
[2017-01-12] MEDS: FOLIC ACID 1 MG TAB PO SCH (09:20)
[2017-01-12] MEDS: HYDROXYCHLOROQUINE 200 MG TAB PO SCH ×2 (09:21→21:26)
[2017-01-12] MEDS: ASPIRIN (EC) 81 MG TAB PO SCH (09:21)
[2017-01-12] MEDS: PANTOPRAZOLE (EC) 40 MG TAB PO SCH ×2 (09:21→21:26)
[2017-01-12] MEDS: ATORVASTATIN 80 MG TAB PO SCH (09:21)
[2017-01-12] MEDS: ENOXAPARIN 30 MG/0.3 ML SYG SC SCH (09:22)
--- NOTE | 2017-01-12 10:01 | CONS ---
Date/Time of Note Date/Time of Note DATE: 01/12/17 TIME: 09:58 Assessment/Plan Assessment/Plan Additional Assessment/Plan Assessment and recommendations; 1. Patient admitted with flash pulmonary edema due to hypertension as well as missing her hemodialysis session with marked overall clinical improvement. 2. End-stage renal disease on hemodialysis. 3. Possibly superimposed pneumonia. 4. Mild thrombocytopenia and anemia. 5. History of hypertension. Continue current treatment for now patient can be transferred to the medical floor. Obtain follow-up chest x-ray in 24 hours. Consultation Date/Type/Reason Admit Date/Time Jan 10, 2017 at 10:56 Initial Consult Date 01/10/17 Type of Consultation: Pulmonary/critical care Referring Provider: CINDY SHARMA MD 24 HR Interval Summary Free Text/Dictation Patient condition is significantly improved. She is completely awake alert. Able to eat . General exam; elderly lady, currently in no distress. Awake and alert. Exam/Review of Systems Vital Signs Vitals Vital Signs Date Time Temp Pulse Resp B/P Pulse Ox O2 Delivery O2 Flow Rate FiO2 01/12/17 08:39 100 22 10 Simple Mask 6.0 01/12/17 06:00 94/51 01/12/17 04:00 98.7 01/11/17 09:14 100 Intake and Output 01/11/17 01/11/17 01/12/17 15:00 23:00 07:00 Intake Total 750 ml 450 ml 40 ml Output Total 3500 ml Balance -2750 ml 450 ml 40 ml Exam HEENT exam; supple neck, patient is edentulous. Has bilateral intraocular lens implants. Positive JVD. No neck masses. No lymphadenopathy. No thyromegaly. Chest examination SC: Diminished breath sounds bilaterally. S1-S2 audible, no murmurs. Regular rhythm. Abdomen examination of Db soft, nontender. No organomegaly. Bowel sounds audible. Extremity examination; no peripheral edema. ASSIGNMENT MANAGER exam is; no focal deficit. Results Result Diagram: 01/12/17 0755 01/12/17 0755 Results 24 hrs Laboratory Tests Test 01/12/17 07:55 Anion Gap 16 Basophils # 0.0 Basophils % 0.2 Blood Urea Nitrogen 19 Calcium Level 8.7 Carbon Dioxide Level 29 Chloride Level 107 Creatinine 2.07 H Eosinophils # 0.1 Eosinophils % 1.5 Glucose Level 74 Hematocrit 25.7 L Hemoglobin 7.6 L Lymphocytes # 0.4 L Lymphocytes % 6.8 L Mean Corpuscular Hemoglobin 33.9 H Mean Corpuscular Hemoglobin Concent 29.6 L Mean Corpuscular Volume 114.7 H Mean Platelet Volume 9.8 Monocytes # 0.3 Monocytes % 5.7 Neutrophils # 5.1 Neutrophils % 85.5 H Nucleated Red Blood Cells # 0.0 Nucleated Red Blood Cells % 0.0 Platelet Count 107 #L Potassium Level 3.5 Red Blood Count 2.24 L Red Cell Distribution Width 16.0 H Sodium Level 148 H White Blood Count 6.0 # Medications Medications Current Medications Aspirin (Halfprin) 81 mg DAILY PO Last administered on 01/12/17 09:21; Admin Dose 81 MG; Start 01/10/17 at 09:00 Docusate Sodium (Colace) 100 mg BID PRN PO CONSTIPATION; Start 01/10/17 at 08: 30 Epoetin Costa (Epogen (Esrd)) 4,000 units MoWeFr@17 SC ; Start 01/10/17 at 17:00 Folic Acid (Folic Acid) 1 mg DAILY PO Last administered on 01/12/17 09:20; Admin Dose 1 MG; Start 01/10/17 at 09:00 Hydroxychloroquine Sulfate (Plaquenil) 200 mg BID PO Last administered on 09:21; Admin Dose 200 MG; Start 01/10/17 at 09:00 Metoprolol Succinate (Toprol Xl) 50 mg QHS PO ; Start 01/10/17 at 21:00 Naphazoline HCl/ Pheniramine Maleate (Visine-A) 1 drop QID BOTH EYES Last administered on 01/12/17 09:19; Admin Dose 1 DROP; Start 01/10/17 at 09:00 Pantoprazole (Protonix Tab) 40 mg BID PO Last administered on 01/12/17 09:21; Admin Dose 40 MG; Start 01/10/17 at 09:00 Salmeterol Xinafoate/ Fluticasone (Advair 250/50 Diskus) 1 inh BID INH Last administered on 01/12/17 09:19; Admin Dose 1 INH; Start 01/10/17 at 09:00 Sucralfate (Carafate) 1 gm BID PO Last administered on 01/12/17 09:20; Admin Dose 1 GM; Start 01/10/17 at 09:00 Valsartan (Diovan) 160 mg DAILY PO ; Start 01/10/17 at 09:00 Vitamin B Complex/ Vitamin C (Berocca) 1 cap DAILY PO Last administered on 01/12 09:20; Admin Dose 1 CAP; Start 01/10/17 at 09:00 Atorvastatin Calcium (Lipitor) 80 mg DAILY PO Last administered on 01/12/17 09 :21; Admin Dose 80 MG; Start 01/10/17 at 09:00 Hydralazine HCl (Apresoline) 50 mg Q6 PO Last administered on 01/10/17 23:10; Admin Dose 50 MG; Start 01/10/17 at 12:00 Ondansetron HCl (Zofran Inj) 4 mg Q6H PRN IV NAUSEA AND/OR VOMITING; Start 08/19 at 08:30 Acetaminophen (Tylenol Tab) 650 mg Q6H PRN PO PAIN LEVEL 1-3 OR FEVER; Start at 08:30 Morphine Sulfate (morphine) 2 mg Q4H PRN IV PAIN LEVEL 7-10 Last administered on 01/11/17 14:23; Admin Dose 2 MG; Start 01/10/17 at 08:30 Enoxaparin Sodium 30 mg 30 mg DAILY SC Last administered on 01/12/17 09:22; Admin Dose 30 MG; Start 01/10/17 at 09:00; Status Future hold Nitroglycerin/ Dextrose 250 ml @ 0 mls/hr TITRATE IV ; Start 01/10/17 at 08:30 Cefepime HCl (Maxipime 1gm/50 ml (Pmx)) 50 ml @ 100 mls/hr Q24H IVPB Last administered on 01/11/17 11:59; Admin Dose 100 MLS/HR; Start 01/11/17 at 12:00 Haloperidol (Haldol) 1 mg Q6 PRN IM agitation; Start 01/11/17 at 23:30 TONY MEHTA Jan 12, 2017 10:00
[2017-01-12] MEDS: CEFEPIME 1GM/50 ML (PMX) 50 ML IVPB SCH (14:52)
[2017-01-12] MEDS: MUPIROCIN 2% 22 GM OINT TOP SCH (21:24)
[2017-01-12] MEDS: METOPROLOL (XL) 50 MG TAB PO SCH (21:26)
--- NOTE | 2017-01-12 22:47 | CONS ---
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 Consultation Date/Type/Reason Admit Date/Time Jan 10, 2017 at 10:56 Initial Consult Date 01/10/17 Type of Consultation: RENAL Referring Provider: CINDY SHARMA MD Exam/Review of Systems Vital Signs Vitals Vital Signs Date Time Temp Pulse Resp B/P Pulse Ox O2 Delivery O2 Flow Rate FiO2 01/12/17 20:39 87 18 98 Nasal Cannula 4.0 01/12/17 19:57 98.0 155/67 01/12/17 17:06 36 Intake and Output 01/11/17 01/11/17 01/12/17 15:00 23:00 07:00 Intake Total 750 ml 450 ml 40 ml Output Total 3500 ml Balance -2750 ml 450 ml 40 ml Exam Constitutional: alert, oriented, well developed Psych: nl mood/affect, no complaints Head: atraumatic, normocephalic Eyes: EOMI, PERRL, nl conjunctiva, nl lids, nl sclera ENMT: nl external ears & nose, nl lips & teeth, nl nasal mucosa & septum Neck: non-tender, supple Respiratory: clear to auscultation, normal air movement Cardiovascular: nl pulses, regular rate and rhythm Gastrointestinal: nl liver, spleen, non-tender, soft Genitourinary - Female: other (dEFORMITIES BOTH LEGS) Musculoskeletal: nl extremities to inspection, nl gait and stance Extremities: normal pulses Neurological: LEGAL SUPPORT SPECIALIST II-XII intact, nl mental status, nl speech, nl strength Skin: nl turgor, No rash or lesions Lymph: nl lymph nodes Results Result Diagram: 01/12/17 0755 01/12/17 0755 Results 24 hrs Laboratory Tests Test 01/12/17 07:55 Anion Gap 16 Basophils # 0.0 Basophils % 0.2 Blood Urea Nitrogen 19 Calcium Level 8.7 Carbon Dioxide Level 29 Chloride Level 107 Creatinine 2.07 H Eosinophils # 0.1 Eosinophils % 1.5 Glucose Level 74 Hematocrit 25.7 L Hemoglobin 7.6 L Lymphocytes # 0.4 L Lymphocytes % 6.8 L Mean Corpuscular Hemoglobin 33.9 H Mean Corpuscular Hemoglobin Concent 29.6 L Mean Corpuscular Volume 114.7 H Mean Platelet Volume 9.8 Monocytes # 0.3 Monocytes % 5.7 Neutrophils # 5.1 Neutrophils % 85.5 H Nucleated Red Blood Cells # 0.0 Nucleated Red Blood Cells % 0.0 Platelet Count 107 #L Potassium Level 3.5 Red Blood Count 2.24 L Red Cell Distribution Width 16.0 H Sodium Level 148 H White Blood Count 6.0 # Medications Medications Current Medications Aspirin (Halfprin) 81 mg DAILY PO Last administered on 01/12/17 09:21; Admin Dose 81 MG; Start 01/10/17 at 09:00 Docusate Sodium (Colace) 100 mg BID PRN PO CONSTIPATION; Start 01/10/17 at 08: 30 Epoetin Costa (Epogen (Esrd)) 4,000 units MoWeFr@17 SC ; Start 01/10/17 at 17:00 Folic Acid (Folic Acid) 1 mg DAILY PO Last administered on 01/12/17 09:20; Admin Dose 1 MG; Start 01/10/17 at 09:00 Hydroxychloroquine Sulfate (Plaquenil) 200 mg BID PO Last administered on 21:26; Admin Dose 200 MG; Start 01/10/17 at 09:00 Metoprolol Succinate (Toprol Xl) 50 mg QHS PO Last administered on 01/12/17 21 :26; Admin Dose 50 MG; Start 01/10/17 at 21:00 Naphazoline HCl/ Pheniramine Maleate (Visine-A) 1 drop QID BOTH EYES Last administered on 01/12/17 21:24; Admin Dose 1 DROP; Start 01/10/17 at 09:00 Pantoprazole (Protonix Tab) 40 mg BID PO Last administered on 01/12/17 21:26; Admin Dose 40 MG; Start 01/10/17 at 09:00 Salmeterol Xinafoate/ Fluticasone (Advair 250/50 Diskus) 1 inh BID INH Last administered on 01/12/17 21:25; Admin Dose 1 INH; Start 01/10/17 at 09:00 Sucralfate (Carafate) 1 gm BID PO Last administered on 01/12/17 21:26; Admin Dose 1 GM; Start 01/10/17 at 09:00 Valsartan (Diovan) 160 mg DAILY PO ; Start 01/10/17 at 09:00 Vitamin B Complex/ Vitamin C (Berocca) 1 cap DAILY PO Last administered on 01/12 09:20; Admin Dose 1 CAP; Start 01/10/17 at 09:00 Atorvastatin Calcium (Lipitor) 80 mg DAILY PO Last administered on 01/12/17 09 :21; Admin Dose 80 MG; Start 01/10/17 at 09:00 Hydralazine HCl (Apresoline) 50 mg Q6 PO Last administered on 01/10/17 23:10; Admin Dose 50 MG; Start 01/10/17 at 12:00 Ondansetron HCl (Zofran Inj) 4 mg Q6H PRN IV NAUSEA AND/OR VOMITING; Start 08/19 at 08:30 Acetaminophen (Tylenol Tab) 650 mg Q6H PRN PO PAIN LEVEL 1-3 OR FEVER; Start at 08:30 Morphine Sulfate (morphine) 2 mg Q4H PRN IV PAIN LEVEL 7-10 Last administered on 01/11/17 14:23; Admin Dose 2 MG; Start 01/10/17 at 08:30 Enoxaparin Sodium 30 mg 30 mg DAILY SC Last administered on 01/12/17 09:22; Admin Dose 30 MG; Start 01/10/17 at 09:00; Status Future hold Cefepime HCl (Maxipime 1gm/50 ml (Pmx)) 50 ml @ 100 mls/hr Q24H IVPB Last administered on 01/12/17 14:52; Admin Dose 100 MLS/HR; Start 01/11/17 at 12:00 Haloperidol (Haldol) 1 mg Q6 PRN IM agitation; Start 01/11/17 at 23:30 Mupirocin (Bactroban) 1 applic BID TOP Last administered on 01/12/17 21:24; Admin Dose 1 APPLIC; Start 01/12/17 at 21:00 Miscellaneous Information (*Rx Drug Level Order Reminder*) RANDOM VANCOMYCIN LEVEL 3... ONCE ONCE XX ; Start 01/13/17 at 05:00; Stop 01/13/17 at 05:01 DIANA KAMARA MD Jan 12, 2017 22:47
[2017-01-13] VITALS (22 sets, daily range): BP systolic 97–139; BP diastolic 53–67; PULSE 63–77; RESP 17–20
[2017-01-13] MEDS: ALBUTEROL/IPRATROPIUM (NEB) 3 ML AMP NEB SCH ×6 (00:15→20:30)
[2017-01-13] MEDS: LEVOTHYROXINE 50 MCG TAB PO SCH (06:13)
--- NOTE | 2017-01-13 07:26 | PN ---
DATE: 01/12/2017 CARDIOLOGY FOLLOWUP SUBJECTIVE: The patient has been agitated overnight and confused and anxious. Was sedated overnigh t. Blood pressure dropped after sedation, however, is currently stable. The patient is unable to g tyree me a history. Discussed with the staff in the ICU. MEDICATIONS: Reviewed. PHYSICAL EXAMINATION: VITAL SIGNS: Temperature 98.7, heart rate of 76, blood pressure 94/51, respiration rate of 30. HEENT: Normocephalic, atraumatic. Elderly female. Requiring oxygen. CARDIOVASCULAR: Regular rate and rhythm. Systolic murmur. PULMONARY: With no wheezes heard. GASTROINTESTINAL: Soft, nontender. EXTREMITIES: With edema. NEUROLOGIC: Sedated and sleeping. LABORATORY: Blood cultures are so far negative. ASSESSMENT AND PLAN: 1. Hypertensive urgency, currently stable. 2. Renal failure on dialysis. 3. Pulmonary edema. 4. Sick sinus syndrome status post permanent pacemaker. 5. Very labile blood pressure. 6. Anxiety and agitation. 7. Severe dyspnea. 8. Hypothyroidism. RECOMMENDATIONS: I will discontinue the amlodipine given her low blood pressure now. Also, dialysi s as per renal. Continue with the respiratory care cardiac care. Dictated By: LEIGH ANN KING MD AV/NTS Conf#: [id number] DID#: [id number] CC: DIANA KAMARA MD;*EndCC*
--- NOTE | 2017-01-13 07:49 | PN ---
DATE: 01/11/2017 CARDIOLOGY FOLLOWUP SUBJECTIVE: Discussed with the staff. Rhythm strip was reviewed. The patient remains in sinus rhy thm, paced rhythm. Complains of shortness of breath. The patient had dialysis done already. Place d on 100% oxygen the moment. MEDICATIONS: Reviewed as per medical reconciliation, personally reviewed. PHYSICAL EXAMINATION: VITAL SIGNS: Temperature 98, heart rate of 95, blood pressure 104/82, respiration rate of 27, satur ating 96%. HEENT: Normocephalic, atraumatic. Appears in mild respiratory distress. Pupils are equal. CARDIOVASCULAR: Regular rate and rhythm. Systolic ejection murmur radiating to carotids. PULMONARY: No wheezes heard. GASTROINTESTINAL: Soft, nontender. EXTREMITIES: Positive lower extremity edema. There are multiple ecchymoses. NEUROLOGIC: Awake, alert, oriented to person. PSYCHIATRIC: Appears to be anxious. LABORATORY: WBC of 13.1, hemoglobin of 8.2, platelets of 147. Sodium 142. Potassium 3.1, BUN of 1 9, creatinine of 2.08, glucose of 95. Troponin as of yesterday was 0.259. ASSESSMENT AND PLAN: 1. Fluid overload/pulmonary edema. 2. Hypertension, currently improved with dialysis. 3. Renal failure, status post dialysis. 4. History of sick sinus syndrome, status post permanent pacemaker. 5. History of apparently poor compliance. 6. Memory impairment. RECOMMENDATIONS: Fluid management and/or dialysis. Blood pressure medication will be continued and hold for low blood pressure. Continue with the ICU care. Continue to closely monitor as well. Ca rdiac telemetry will be continued. Dictated By: LEIGH ANN KING MD AV/PARKER Conf#: [id number] DID#: [id number] CC: SIMONE CEJA MD;*EndCC*
[2017-01-13] MEDS: SEVELAMER CARBONATE 0.8 GM PKT PO SCH ×3 (08:42→17:53)
[2017-01-13] MEDS: VALSARTAN 160 MG TAB PO SCH (08:42)
[2017-01-13] MEDS: FOLIC ACID 1 MG TAB PO SCH (08:42)
[2017-01-13] MEDS: ATORVASTATIN 80 MG TAB PO SCH (08:42)
[2017-01-13] MEDS: PANTOPRAZOLE (EC) 40 MG TAB PO SCH ×2 (08:42→20:33)
[2017-01-13] MEDS: VITAMIN B COMPLEX/VIT C CAP PO SCH (08:43)
[2017-01-13] MEDS: ASPIRIN (EC) 81 MG TAB PO SCH (08:43)
[2017-01-13] MEDS: HYDROXYCHLOROQUINE 200 MG TAB PO SCH ×2 (08:43→20:33)
[2017-01-13] MEDS: SUCRALFATE 1 GM TAB PO SCH ×2 (08:43→20:33)
[2017-01-13] MEDS: SALMETEROL/FLUTICASONE 250/50 INHA INH SCH ×2 (08:43→20:34)
[2017-01-13] MEDS: MUPIROCIN 2% 22 GM OINT TOP SCH ×2 (08:44→20:34)
[2017-01-13] MEDS: NAPHAZOLINE/PHENIRAMINE 15 ML OPH BOTH EYES SCH ×4 (08:44→20:34)
[2017-01-13] MEDS: ENOXAPARIN 30 MG/0.3 ML SYG SC SCH (08:57)
[2017-01-13] MEDS ORDERED: VANCOMYCIN 1 GM in NS 250 ML IVPB SCH (10:30)
--- NOTE | 2017-01-13 11:15 | RADRPT ---
PROCEDURE: XR Chest 1 view. CLINICAL INDICATION: Shortness of breath, congestive heart failure TECHNIQUE: AP views of the chest were obtained. COMPARISON: January 11, 2017 FINDINGS: The heart is large. Calcified atherosclerosis is noted in the aorta. Left sided dialysis catheter i s unchanged. Right-sided dual chamber pacemaker has its leads over the heart and is stable. Median sternotomy wires overlie the heart. Central pulmonary vascular congestion and interstitial promine nce in both lungs is unchanged. Bilateral perihilar and lower lung infiltrates combined with small to moderate pleural effusions are stable. The osseous structures are stable. Surgical clips are no renetta in the left axilla. IMPRESSION: Cardiomegaly with calcified atherosclerosis in the aorta. Stable central pulmonary vascular congestion and interstitial prominence in both lungs. Stable bilateral perihilar and lower lung infiltrates combined with small to moderate bilateral pleu ral effusions. RPTAT: AA .Gaurav Rodriguez MD, MD Date Time Electronically viewed and signed by .Gaurav Rodriguez MD, MD on 01/13/2017 11:15 .P/
--- NOTE | 2017-01-13 12:34 | PN ---
Date/Time of Note Date/Time of Note DATE: 01/13/17 TIME: 11:55 Assessment/Plan VTE Prophylaxis VTE Prophylaxis Intervention: SCD's Lines/Catheters IV Catheter Type (from [facility] Saline Lock Urinary Cath still in place: No Assessment/Plan Assessment/Plan 76 yo female with: 1. Hypoxemic respiratory failure most likely related to pulmonary edema, CHF exacerbation and ESRD Appreciate evaluation and recommendations from Cardiology HD today Dr. Das/Dr Morris following 2. CAD and likely ischemic cardiomyopathy with EF 55% but also ESRD Volume management through HD Appreciate recs from Cardiology Continue current cardiac meds 3. Sick Sinus Syndrome s/p pacemaker. Stable 4. End-stage renal disease on hemodialysis. HD today with pRBC. 5. Acute on chronic Anemia, no acute bleeding, on Epo with HD. Will transfuse pRBC with HD today. 6. Hypertension: better controlled with resumption of meds 7. Thrombocytopenia: improving 8. Dementia/memory impairment: stable, continue current care. Haldol prn agitation, avoiding Benzo due to episode of lethargy/sedation Prophylaxis: SCDs for DVT ppx and continue PPI for GI ppx. Disposition: HD today with pRBC. Monitor respiratory status . Subjective 24 Hr Interval Summary Free Text/Dictation Patient seems to be in some respiratory distress this AM pre HD Anemic yesterday and will be getting pRBC with HD today Refusing BiPAP and currently on face mask GPC on blood cx, repeat blood cx pending Exam/Review of Systems Vital Signs Vitals Vital Signs Date Time Temp Pulse Resp B/P Pulse Ox O2 Delivery O2 Flow Rate FiO2 01/13/17 11:17 98.3 70 18 113/55 100 01/13/17 09:12 Simple Mask 6.0 01/12/17 17:06 36 Intake and Output 01/12/17 01/12/17 01/13/17 15:00 23:00 07:00 Intake Total 580 ml 250 ml Balance 580 ml 250 ml Exam Constitutional: alert, distress (respiratory ) Respiratory: crackles/rales, diminished breath sounds (bilaterally ) Cardiovascular: other (paced ), regular rate and rhythm Gastrointestinal: non-tender, soft Extremities: clubbing, cyanosis, other (no edema) Neurological: GRADES 1 THROUGH 6 TEACHER II-XII intact, confused, lethargic Results Result Diagram: 01/12/17 0755 01/12/17 0755 Results 24 hrs Laboratory Tests Test 3/13/17 05:19 Random Vancomycin Level 10.1 Medications Medications Current Medications Aspirin (Halfprin) 81 mg DAILY PO Last administered on 01/13/17 08:43; Admin Dose 81 MG; Start 01/10/17 at 09:00 Docusate Sodium (Colace) 100 mg BID PRN PO CONSTIPATION; Start 01/10/17 at 08: 30 Epoetin Costa (Epogen (Esrd)) 4,000 units MoWeFr@17 SC ; Start 01/10/17 at 17:00 Folic Acid (Folic Acid) 1 mg DAILY PO Last administered on 01/13/17 08:42; Admin Dose 1 MG; Start 01/10/17 at 09:00 Hydroxychloroquine Sulfate (Plaquenil) 200 mg BID PO Last administered on 08:43; Admin Dose 200 MG; Start 01/10/17 at 09:00 Metoprolol Succinate (Toprol Xl) 50 mg QHS PO Last administered on 01/12/17 21 :26; Admin Dose 50 MG; Start 01/10/17 at 21:00 Naphazoline HCl/ Pheniramine Maleate (Visine-A) 1 drop QID BOTH EYES Last administered on 01/13/17 08:44; Admin Dose 1 DROP; Start 01/10/17 at 09:00 Pantoprazole (Protonix Tab) 40 mg BID PO Last administered on 01/13/17 08:42; Admin Dose 40 MG; Start 01/10/17 at 09:00 Salmeterol Xinafoate/ Fluticasone (Advair 250/50 Diskus) 1 inh BID INH Last administered on 01/13/17 08:43; Admin Dose 1 INH; Start 01/10/17 at 09:00 Sucralfate (Carafate) 1 gm BID PO Last administered on 01/13/17 08:43; Admin Dose 1 GM; Start 01/10/17 at 09:00 Valsartan (Diovan) 160 mg DAILY PO Last administered on 01/13/17 08:42; Admin Dose 160 MG; Start 01/10/17 at 09:00 Vitamin B Complex/ Vitamin C (Berocca) 1 cap DAILY PO Last administered on 01/13 08:43; Admin Dose 1 CAP; Start 01/10/17 at 09:00 Atorvastatin Calcium (Lipitor) 80 mg DAILY PO Last administered on 01/13/17 08 :42; Admin Dose 80 MG; Start 01/10/17 at 09:00 Hydralazine HCl (Apresoline) 50 mg Q6 PO Last administered on 01/10/17 23:10; Admin Dose 50 MG; Start 01/10/17 at 12:00 Ondansetron HCl (Zofran Inj) 4 mg Q6H PRN IV NAUSEA AND/OR VOMITING; Start 08/19 at 08:30 Acetaminophen (Tylenol Tab) 650 mg Q6H PRN PO PAIN LEVEL 1-3 OR FEVER; Start at 08:30 Morphine Sulfate (morphine) 2 mg Q4H PRN IV PAIN LEVEL 7-10 Last administered on 01/11/17 14:23; Admin Dose 2 MG; Start 01/10/17 at 08:30 Enoxaparin Sodium (Lovenox) 30 mg DAILY SC Last administered on 01/13/17 08:57 ; Admin Dose 30 MG; Start 01/10/17 at 09:00; Status Future hold Haloperidol (Haldol) 1 mg Q6 PRN IM agitation; Start 01/11/17 at 23:30 Mupirocin 1 applic 1 applic BID TOP Last administered on 01/13/17 08:44; Admin Dose 1 APPLIC; Start 01/12/17 at 21:00 Vancomycin HCl (Vancocin) 250 ml @ 125 mls/hr ONCE IVPB Last administered on 11:03; Admin Dose 125 MLS/HR; Start 01/13/17 at 10:30; Stop 01/13/17 at 16:00 Procedures Procedures PROCEDURE: XR Chest 1 view. CLINICAL INDICATION: Shortness of breath, congestive heart failure TECHNIQUE: AP views of the chest were obtained. COMPARISON: January 11, 2017 FINDINGS: The heart is large. Calcified atherosclerosis is noted in the aorta. Left sided dialysis catheter is unchanged. Right-sided dual chamber pacemaker has its leads over the heart and is stable. Median sternotomy wires overlie the heart. Central pulmonary vascular congestion and interstitial prominence in both lungs is unchanged. Bilateral perihilar and lower lung infiltrates combined with small to moderate pleural effusions are stable. The osseous structures are stable. Surgical clips are noted in the left axilla. IMPRESSION: Cardiomegaly with calcified atherosclerosis in the aorta. Stable central pulmonary vascular congestion and interstitial prominence in both lungs. Stable bilateral perihilar and lower lung infiltrates combined with small to moderate bilateral pleural effusions. LORENA ARRIOLA Jan 13, 2017 12:09
--- NOTE | 2017-01-13 15:27 | CONS ---
Date/Time of Note Date/Time of Note DATE: 01/13/17 TIME: 15:25 Assessment/Plan Assessment/Plan Additional Assessment/Plan Acute decompensated diastolic congestive heart failure Hypertension urgency, resolved Mitral and tricuspid valve regurgitation Moderate aortic stenosis End-stage renal disease on hemodialysis Hypertension History of pacemaker Possible poor compliance -Blood pressure trend improved, fluid management via hemodialysis as per our nephrology colleagues. Patient plan for blood transfusion during hemodialysis. Consultation Date/Type/Reason Admit Date/Time Jan 10, 2017 at 10:56 Initial Consult Date 01/10/17 Type of Consultation: cv Referring Provider: CINDY SHARMA MD 24 HR Interval Summary Free Text/Dictation Denies shortness of breath, chest pain or palpitations Exam/Review of Systems Vital Signs Vitals Vital Signs Date Time Temp Pulse Resp B/P Pulse Ox O2 Delivery O2 Flow Rate FiO2 01/13/17 14:50 63 01/13/17 11:17 98.3 18 113/55 100 01/13/17 09:12 Simple Mask 6.0 01/12/17 17:06 36 Intake and Output 01/12/17 01/12/17 01/13/17 15:00 23:00 07:00 Intake Total 580 ml 250 ml Balance 580 ml 250 ml Exam Undergoing hemodialysis Constitutional: alert Head: normocephalic Respiratory: other (Coarse breath sounds bilaterally, no wheezing) Cardiovascular: other (S1-S2), regular rate and rhythm, systolic murmur Gastrointestinal: bowel sounds, non-tender, other (No guarding), soft Extremities: edema, other (Numerous areas of ecchymosis) Results Result Diagram: 01/12/17 0755 01/12/17 0755 Results 24 hrs Laboratory Tests Test 01/13/17 05:19 Random Vancomycin Level 10.1 Medications Medications Current Medications Aspirin (Halfprin) 81 mg DAILY PO Last administered on 01/13/17 08:43; Admin Dose 81 MG; Start 01/10/17 at 09:00 Docusate Sodium (Colace) 100 mg BID PRN PO CONSTIPATION; Start 01/10/17 at 08: 30 Epoetin Costa (Epogen (Esrd)) 4,000 units MoWeFr@17 SC ; Start 01/10/17 at 17:00 Folic Acid (Folic Acid) 1 mg DAILY PO Last administered on 01/13/17 08:42; Admin Dose 1 MG; Start 01/10/17 at 09:00 Hydroxychloroquine Sulfate (Plaquenil) 200 mg BID PO Last administered on 08:43; Admin Dose 200 MG; Start 01/10/17 at 09:00 Metoprolol Succinate (Toprol Xl) 50 mg QHS PO Last administered on 01/12/17 21 :26; Admin Dose 50 MG; Start 01/10/17 at 21:00 Naphazoline HCl/ Pheniramine Maleate (Visine-A) 1 drop QID BOTH EYES Last administered on 01/13/17 12:24; Admin Dose 1 DROP; Start 01/10/17 at 09:00 Pantoprazole (Protonix Tab) 40 mg BID PO Last administered on 01/13/17 08:42; Admin Dose 40 MG; Start 01/10/17 at 09:00 Salmeterol Xinafoate/ Fluticasone (Advair 250/50 Diskus) 1 inh BID INH Last administered on 01/13/17 08:43; Admin Dose 1 INH; Start 01/10/17 at 09:00 Sucralfate (Carafate) 1 gm BID PO Last administered on 01/13/17 08:43; Admin Dose 1 GM; Start 01/10/17 at 09:00 Valsartan (Diovan) 160 mg DAILY PO Last administered on 01/13/17 08:42; Admin Dose 160 MG; Start 01/10/17 at 09:00 Vitamin B Complex/ Vitamin C (Berocca) 1 cap DAILY PO Last administered on 01/13 08:43; Admin Dose 1 CAP; Start 01/10/17 at 09:00 Atorvastatin Calcium (Lipitor) 80 mg DAILY PO Last administered on 01/13/17 08 :42; Admin Dose 80 MG; Start 01/10/17 at 09:00 Hydralazine HCl (Apresoline) 50 mg Q6 PO Last administered on 01/10/17 23:10; Admin Dose 50 MG; Start 01/10/17 at 12:00 Ondansetron HCl (Zofran Inj) 4 mg Q6H PRN IV NAUSEA AND/OR VOMITING; Start 08/19 at 08:30 Acetaminophen (Tylenol Tab) 650 mg Q6H PRN PO PAIN LEVEL 1-3 OR FEVER; Start at 08:30 Morphine Sulfate (morphine) 2 mg Q4H PRN IV PAIN LEVEL 7-10 Last administered on 01/11/17 14:23; Admin Dose 2 MG; Start 01/10/17 at 08:30 Haloperidol (Haldol) 1 mg Q6 PRN IM agitation; Start 01/11/17 at 23:30 Mupirocin 1 applic 1 applic BID TOP Last administered on 01/13/17 08:44; Admin Dose 1 APPLIC; Start 01/12/17 at 21:00 Vancomycin HCl (Vancocin) 250 ml @ 125 mls/hr ONCE IVPB Last administered on 11:03; Admin Dose 125 MLS/HR; Start 01/13/17 at 10:30; Stop 01/13/17 at 16:00 Db Olea DO Jan 13, 2017 15:27
[2017-01-13] MEDS: EPOETIN 4000 UNITS/1 ML INJ (ESRD) SC SCH (17:54)
[2017-01-13] MEDS ORDERED: CYANOCOBALAMIN 1000 MCG INJ IM SCH (19:00)
[2017-01-13] MEDS: METOPROLOL (XL) 50 MG TAB PO SCH (20:33)
--- NOTE | 2017-01-13 22:10 | PN ---
DATE: SUBJECTIVE: Patient Hema is still somewhat short of breath this morning requiring face mask O2. C urrently, having hemodialysis. She refused noninvasive positive pressure ventilation earlier. PHYSICAL EXAMINATION: VITAL SIGNS: Temperature 98, pulse 70, blood pressure 113/55, O2 saturation 99% on 6 liters facemas k. NECK: Supple. No JVD or lymphadenopathy. CARDIAC: S1, S2, no added sounds or murmurs. CHEST: Diminished air entry bilaterally. ABDOMEN: Soft, nontender. No guarding or rebound. EXTREMITIES: No cyanosis, clubbing, 1+ edema. NEUROLOGIC: Generalized weakness. LABORATORY DATA: White count 6.0, hemoglobin 7.6, platelets within normal limits. BUN 19, creatini ne 2.07. IMPRESSION AND PLAN: 1. End-stage renal failure on hemodialysis. 2. Ongoing pulmonary edema with increased vascular congestion. 3. History of coronary artery disease with preserved ejection fraction. 4. Sick sinus syndrome with pacemaker placement. 5. Anemia, likely secondary to chronic disease. RECOMMENDATIONS 1. Continue hemodialysis with volume removal. 2. Transfusion of packed red blood cells. 3. Decrease O2 as tolerated. 4. Establish code status as overall prognosis is guarded. Dictated By: SOFIE RYAN/PARKER Conf#: [id number] DID#: [id number]
--- NOTE | 2017-01-13 22:59 | CONS ---
Date/Time of Note Date/Time of Note DATE: 01/13/17 TIME: 22:58 Assessment/Plan Assessment/Plan Additional Assessment/Plan pt transfered out of ICU, will continue HD per schedule Consultation Date/Type/Reason Admit Date/Time Jan 10, 2017 at 10:56 Initial Consult Date 01/10/17 Type of Consultation: renal Referring Provider: CINDY SHARMA MD 24 HR Interval Summary Free Text/Dictation speaks Nigerien only Exam/Review of Systems Vital Signs Vitals Vital Signs Date Time Temp Pulse Resp B/P Pulse Ox O2 Delivery O2 Flow Rate FiO2 01/13/17 20:30 75 20 99 Simple Mask 6.0 01/13/17 15:32 97.9 121/55 01/12/17 17:06 36 Intake and Output 01/12/17 01/12/17 01/13/17 15:00 23:00 07:00 Intake Total 580 ml 250 ml Balance 580 ml 250 ml Exam Constitutional: alert, oriented, well developed Psych: nl mood/affect, no complaints Head: atraumatic, normocephalic Eyes: EOMI, PERRL, nl conjunctiva, nl lids, nl sclera ENMT: nl external ears & nose, nl lips & teeth, nl nasal mucosa & septum Neck: non-tender, other (limited movement, permacath rt side), supple Respiratory: clear to auscultation, normal air movement Cardiovascular: nl pulses, regular rate and rhythm Gastrointestinal: nl liver, spleen, non-tender, soft Musculoskeletal: nl extremities to inspection, nl gait and stance Extremities: normal pulses, other (multiple deformities) Neurological: IMAGER II-XII intact, nl mental status, nl speech, nl strength Skin: nl turgor, No rash or lesions Lymph: nl lymph nodes Results Result Diagram: 01/12/17 0755 01/12/17 0755 Results 24 hrs Laboratory Tests Test 01/13/17 05:19 01/13/17 19:40 Random Vancomycin Level 10.1 Vitamin B12 Level > 1000 H Medications Medications Current Medications Aspirin (Halfprin) 81 mg DAILY PO Last administered on 01/13/17t 08:43; Admin Dose 81 MG; Start 01/10/17 at 09:00 Docusate Sodium (Colace) 100 mg BID PRN PO CONSTIPATION; Start 01/10/17 at 08: 30 Epoetin Costa (Epogen (Esrd)) 4,000 units MoWeFr@17 SC Last administered on 01/13 17:54; Admin Dose 4,000 UNITS; Start 01/10/17 at 17:00 Folic Acid (Folic Acid) 1 mg DAILY PO Last administered on 01/13/17 08:42; Admin Dose 1 MG; Start 01/10/17 at 09:00 Hydroxychloroquine Sulfate (Plaquenil) 200 mg BID PO Last administered on 20:33; Admin Dose 200 MG; Start 01/10/17 at 09:00 Metoprolol Succinate (Toprol Xl) 50 mg QHS PO Last administered on 01/13/17 20 :33; Admin Dose 50 MG; Start 01/10/17 at 21:00 Naphazoline HCl/ Pheniramine Maleate (Visine-A) 1 drop QID BOTH EYES Last administered on 01/13/17 20:34; Admin Dose 1 DROP; Start 01/10/17 at 09:00 Pantoprazole (Protonix Tab) 40 mg BID PO Last administered on 01/13/17 20:33; Admin Dose 40 MG; Start 01/10/17 at 09:00 Salmeterol Xinafoate/ Fluticasone (Advair 250/50 Diskus) 1 inh BID INH Last administered on 01/13/17 20:34; Admin Dose 1 INH; Start 01/10/17 at 09:00 Sucralfate (Carafate) 1 gm BID PO Last administered on 01/13/17 20:33; Admin Dose 1 GM; Start 01/10/17 at 09:00 Valsartan (Diovan) 160 mg DAILY PO Last administered on 01/13/17 08:42; Admin Dose 160 MG; Start 01/10/17 at 09:00 Vitamin B Complex/ Vitamin C (Berocca) 1 cap DAILY PO Last administered on 01/13 08:43; Admin Dose 1 CAP; Start 01/10/17 at 09:00 Atorvastatin Calcium (Lipitor) 80 mg DAILY PO Last administered on 01/13/17 08 :42; Admin Dose 80 MG; Start 01/10/17 at 09:00 Hydralazine HCl (Apresoline) 50 mg Q6 PO Last administered on 01/13/17 17:54; Admin Dose 50 MG; Start 01/10/17 at 12:00 Ondansetron HCl (Zofran Inj) 4 mg Q6H PRN IV NAUSEA AND/OR VOMITING; Start 08/19 at 08:30 Acetaminophen (Tylenol Tab) 650 mg Q6H PRN PO PAIN LEVEL 1-3 OR FEVER; Start at 08:30 Morphine Sulfate (morphine) 2 mg Q4H PRN IV PAIN LEVEL 7-10 Last administered on 01/11/17 14:23; Admin Dose 2 MG; Start 01/10/17 at 08:30 Haloperidol (Haldol) 1 mg Q6 PRN IM agitation; Start 01/11/17 at 23:30 Mupirocin (Bactroban) 1 applic BID TOP Last administered on 01/13/17 20:34; Admin Dose 1 APPLIC; Start 01/12/17 at 21:00 Cyanocobalamin (Vitamin B12 Inj) 1,000 mcg Q7D IM Last administered on 19:41; Admin Dose 1,000 MCG; Start 01/13/17 at 19:00 DIANA KAMARA MD Jan 13, 2017 22:58
--- NOTE | 2017-01-13 23:01 | CONS ---
Date/Time of Note Date/Time of Note DATE: 01/13/17 TIME: 23:00 Consultation Date/Type/Reason Admit Date/Time Jan 10, 2017 at 10:56 Initial Consult Date 01/10/17 Type of Consultation: renal Referring Provider: CINDY SHARMA MD Exam/Review of Systems Vital Signs Vitals Vital Signs Date Time Temp Pulse Resp B/P Pulse Ox O2 Delivery O2 Flow Rate FiO2 01/13/17 20:30 75 20 99 Simple Mask 6.0 01/13/17 15:32 97.9 121/55 01/12/17 17:06 36 Intake and Output 01/12/17 01/12/17 01/13/17 15:00 23:00 07:00 Intake Total 580 ml 250 ml Balance 580 ml 250 ml Results Result Diagram: 01/12/17 0755 01/12/17 0755 Results 24 hrs Laboratory Tests Test 01/13/17 05:19 01/13/17 19:40 Random Vancomycin Level 10.1 Vitamin B12 Level > 1000 H Medications Medications Current Medications Aspirin (Halfprin) 81 mg DAILY PO Last administered on 01/13/17 08:43; Admin Dose 81 MG; Start 01/10/17 at 09:00 Docusate Sodium (Colace) 100 mg BID PRN PO CONSTIPATION; Start 01/10/17 at 08: 30 Epoetin Costa (Epogen (Esrd)) 4,000 units MoWeFr@17 SC Last administered on 01/13 17:54; Admin Dose 4,000 UNITS; Start 01/10/17 at 17:00 Folic Acid (Folic Acid) 1 mg DAILY PO Last administered on 01/13/17 08:42; Admin Dose 1 MG; Start 01/10/17 at 09:00 Hydroxychloroquine Sulfate (Plaquenil) 200 mg BID PO Last administered on 20:33; Admin Dose 200 MG; Start 01/10/17 at 09:00 Metoprolol Succinate (Toprol Xl) 50 mg QHS PO Last administered on 01/13/17 20 :33; Admin Dose 50 MG; Start 01/10/17 at 21:00 Naphazoline HCl/ Pheniramine Maleate (Visine-A) 1 drop QID BOTH EYES Last administered on 01/13/17 20:34; Admin Dose 1 DROP; Start 01/10/17 at 09:00 Pantoprazole (Protonix Tab) 40 mg BID PO Last administered on 01/13/17 20:33; Admin Dose 40 MG; Start 01/10/17 at 09:00 Salmeterol Xinafoate/ Fluticasone (Advair 250/50 Diskus) 1 inh BID INH Last administered on 01/13/17 20:34; Admin Dose 1 INH; Start 01/10/17 at 09:00 Sucralfate (Carafate) 1 gm BID PO Last administered on 01/13/17 20:33; Admin Dose 1 GM; Start 01/10/17 at 09:00 Valsartan (Diovan) 160 mg DAILY PO Last administered on 01/13/17 08:42; Admin Dose 160 MG; Start 01/10/17 at 09:00 Vitamin B Complex/ Vitamin C (Berocca) 1 cap DAILY PO Last administered on 01/13 08:43; Admin Dose 1 CAP; Start 01/10/17 at 09:00 Atorvastatin Calcium (Lipitor) 80 mg DAILY PO Last administered on 01/13/17 08 :42; Admin Dose 80 MG; Start 01/10/17 at 09:00 Hydralazine HCl (Apresoline) 50 mg Q6 PO Last administered on 01/13/17 17:54; Admin Dose 50 MG; Start 01/10/17 at 12:00 Ondansetron HCl (Zofran Inj) 4 mg Q6H PRN IV NAUSEA AND/OR VOMITING; Start 08/19 at 08:30 Acetaminophen (Tylenol Tab) 650 mg Q6H PRN PO PAIN LEVEL 1-3 OR FEVER; Start at 08:30 Morphine Sulfate (morphine) 2 mg Q4H PRN IV PAIN LEVEL 7-10 Last administered on 01/11/17 14:23; Admin Dose 2 MG; Start 01/10/17 at 08:30 Haloperidol (Haldol) 1 mg Q6 PRN IM agitation; Start 01/11/17 at 23:30 Mupirocin (Bactroban) 1 applic BID TOP Last administered on 01/13/17 20:34; Admin Dose 1 APPLIC; Start 01/12/17 at 21:00 Cyanocobalamin (Vitamin B12 Inj) 1,000 mcg Q7D IM Last administered on t 19:41; Admin Dose 1,000 MCG; Start 01/13/17 at 19:00 DIANA KAMARA MD Jan 13, 2017 23:00
[2017-01-14] VITALS (18 sets, daily range): BP systolic 127–178; BP diastolic 60–95; PULSE 64–159; RESP 17–20
[2017-01-14] MEDS: ALBUTEROL/IPRATROPIUM (NEB) 3 ML AMP NEB SCH ×6 (02:06→21:14)
[2017-01-14] MEDS: LEVOTHYROXINE 50 MCG TAB PO SCH (06:48)
[2017-01-14 06:56] LABS: ADD SCAN DIFF NO
[2017-01-14 07:03] LABS: ABNORMAL IP MESSAGE 1; BASOPHILS % 0.4 % (0.0-2.0); EOSINOPHILS # 0.2 10^3/ul (0.0-0.5); EOSINOPHILS % 3.6 % (0.0-7.0); HEMATOCRIT 31.3 % (37.0-47.0); HEMOGLOBIN 9.9 g/dl (12.0-16.0); LYMPHOCYTES # 0.8 10^3/ul (0.8-2.9); LYMPHOCYTES % 18.7 % (15.0-51.0); MEAN CORPUSCULAR HEMOGLOBIN 32.5 pg (29.0-33.0); MEAN CORPUSCULAR HGB CONC 31.6 g/dl (32.0-37.0); MEAN CORPUSCULAR VOLUME 102.6 fl (82.0-101.0); MEAN PLATELET VOLUME 11.8 fl (7.4-10.4); MONOCYTE # 0.4 10^3/ul (0.3-0.9); MONOCYTES % 8.3 % (0.0-11.0); NEUTROPHIL # 3.1 10^3/ul (1.6-7.5); NEUTROPHILS % 68.6 % (39.0-77.0); PLATELET COUNT 92 10^3/UL (140-415); RED BLOOD COUNT 3.05 10^6/ul (4.20-5.40); RED CELL DISTRIBUTION WIDTH 21.1 % (11.5-14.5); WHITE BLOOD COUNT 4.5 10^3/ul (4.8-10.8)
[2017-01-14 07:15] LABS: POTASSIUM 3.4 mmol/L (3.5-5.1)
[2017-01-14 07:16] LABS: MAGNESIUM 1.9 mg/dl (1.7-2.5)
[2017-01-14 07:18] LABS: CREATININE 2.12 mg/dl (0.44-1.00)
[2017-01-14 07:19] LABS: CALCIUM 8.3 mg/dl (8.4-10.2)
[2017-01-14] MEDS: SEVELAMER CARBONATE 0.8 GM PKT PO SCH ×3 (08:36→17:21)
[2017-01-14] MEDS: PANTOPRAZOLE (EC) 40 MG TAB PO SCH ×2 (08:37→20:36)
[2017-01-14] MEDS: HYDROXYCHLOROQUINE 200 MG TAB PO SCH ×2 (08:37→20:36)
[2017-01-14] MEDS: FOLIC ACID 1 MG TAB PO SCH (08:37)
[2017-01-14] MEDS: ASPIRIN (EC) 81 MG TAB PO SCH (08:37)
[2017-01-14] MEDS: ATORVASTATIN 80 MG TAB PO SCH (08:37)
[2017-01-14] MEDS: SUCRALFATE 1 GM TAB PO SCH ×2 (08:37→20:35)
[2017-01-14] MEDS: MUPIROCIN 2% 22 GM OINT TOP SCH ×2 (08:37→20:34)
[2017-01-14] MEDS: SALMETEROL/FLUTICASONE 250/50 INHA INH SCH ×2 (08:37→20:35)
[2017-01-14] MEDS: VALSARTAN 160 MG TAB PO SCH (08:37)
[2017-01-14] MEDS: NAPHAZOLINE/PHENIRAMINE 15 ML OPH BOTH EYES SCH ×4 (08:37→20:35)
[2017-01-14] MEDS: VITAMIN B COMPLEX/VIT C CAP PO SCH (08:37)
--- NOTE | 2017-01-14 14:26 | CONS ---
Date/Time of Note Date/Time of Note DATE: 01/14/17 TIME: 14:21 Assessment/Plan Assessment/Plan Additional Assessment/Plan Acute decompensated diastolic congestive heart failure Hypertension urgency, resolved Mitral and tricuspid valve regurgitation Moderate aortic stenosis End-stage renal disease on hemodialysis Hypertension History of pacemaker Possible poor compliance -Blood pressure trend overall stable. Currently denies any shortness of breath or chest pain. Fluid management via hemodialysis as per our nephrology colleagues. Consultation Date/Type/Reason Admit Date/Time Jan 10, 2017 at 10:56 Initial Consult Date 01/10/17 Type of Consultation: cv Referring Provider: CINDY SHARMA MD 24 HR Interval Summary Free Text/Dictation Patient seen and examined. Denies chest pain or shortness of breath Exam/Review of Systems Vital Signs Vitals Vital Signs Date Time Temp Pulse Resp B/P Pulse Ox O2 Delivery O2 Flow Rate FiO2 01/14/17 12:00 69 01/14/17 11:42 98.0 19 131/60 100 01/14/17 09:35 Nasal Cannula 5.0 01/12/17 17:06 36 Intake and Output 01/13/17 01/13/17 01/14/17 15:00 23:00 07:00 Intake Total 1000 ml 720 ml 60 ml Output Total 3000 ml Balance -2000 ml 720 ml 60 ml Exam Follows commands, no apparent distress Constitutional: alert Head: normocephalic Neck: supple Respiratory: other (Coarse breath sounds bilaterally with scattered mild crackles, no wheezing) Cardiovascular: other (S1-S2 heard), regular rate and rhythm Gastrointestinal: bowel sounds, non-tender, other (No guarding), soft Extremities: edema, other (Areas of ecchymosis) Results Result Diagram: 01/14/17 0603 01/14/17 0603 Results 24 hrs Laboratory Tests Test 01/13/17 19:40 01/14/17 06:03 Vitamin B12 Level > 1000 H Anion Gap 12 Basophils # 0.0 Basophils % 0.4 Blood Urea Nitrogen 17 Calcium Level 8.3 L Carbon Dioxide Level 29 Chloride Level 101 Creatinine 2.12 H Eosinophils # 0.2 Eosinophils % 3.6 Glucose Level 77 Hematocrit 31.3 #L Hemoglobin 9.9 #L Lymphocytes # 0.8 Lymphocytes % 18.7 Magnesium Level 1.9 Mean Corpuscular Hemoglobin 32.5 Mean Corpuscular Hemoglobin Concent 31.6 L Mean Corpuscular Volume 102.6 H Mean Platelet Volume 11.8 #H Monocytes # 0.4 Monocytes % 8.3 Neutrophils # 3.1 Neutrophils % 68.6 Nucleated Red Blood Cells # 0.0 Nucleated Red Blood Cells % 0.0 Phosphorus Level 3.0 Platelet Count 92 L Potassium Level 3.4 L Red Blood Count 3.05 #L Red Cell Distribution Width 21.1 #H Sodium Level 139 White Blood Count 4.5 #L Medications Medications Current Medications Aspirin (Halfprin) 81 mg DAILY PO Last administered on 01/14/17 08:37; Admin Dose 81 MG; Start 01/10/17 at 09:00 Docusate Sodium (Colace) 100 mg BID PRN PO CONSTIPATION; Start 01/10/17 at 08: 30 Epoetin Costa (Epogen (Esrd)) 4,000 units MoWeFr@17 SC Last administered on 01/13 17:54; Admin Dose 4,000 UNITS; Start 01/10/17 at 17:00 Folic Acid (Folic Acid) 1 mg DAILY PO Last administered on 01/14/17 08:37; Admin Dose 1 MG; Start 01/10/17 at 09:00 Hydroxychloroquine Sulfate (Plaquenil) 200 mg BID PO Last administered on 08:37; Admin Dose 200 MG; Start 01/10/17 at 09:00 Metoprolol Succinate (Toprol Xl) 50 mg QHS PO Last administered on 01/13/17 20 :33; Admin Dose 50 MG; Start 01/10/17 at 21:00 Naphazoline HCl/ Pheniramine Maleate (Visine-A) 1 drop QID BOTH EYES Last administered on 01/14/17 12:35; Admin Dose 1 DROP; Start 01/10/17 at 09:00 Pantoprazole (Protonix Tab) 40 mg BID PO Last administered on 01/14/17 08:37; Admin Dose 40 MG; Start 01/10/17 at 09:00 Salmeterol Xinafoate/ Fluticasone (Advair 250/50 Diskus) 1 inh BID INH Last administered on 01/14/17 08:37; Admin Dose 1 INH; Start 01/10/17 at 09:00 Sucralfate (Carafate) 1 gm BID PO Last administered on 01/14/17 08:37; Admin Dose 1 GM; Start 01/10/17 at 09:00 Valsartan (Diovan) 160 mg DAILY PO Last administered on 01/14/17 08:37; Admin Dose 160 MG; Start 01/10/17 at 09:00 Vitamin B Complex/ Vitamin C (Berocca) 1 cap DAILY PO Last administered on 01/14 08:37; Admin Dose 1 CAP; Start 01/10/17 at 09:00 Atorvastatin Calcium (Lipitor) 80 mg DAILY PO Last administered on 01/14/17 08 :37; Admin Dose 80 MG; Start 01/10/17 at 09:00 Hydralazine HCl (Apresoline) 50 mg Q6 PO Last administered on 01/13/17 17:54; Admin Dose 50 MG; Start 01/10/17 at 12:00 Ondansetron HCl (Zofran Inj) 4 mg Q6H PRN IV NAUSEA AND/OR VOMITING; Start 08/19 at 08:30 Acetaminophen (Tylenol Tab) 650 mg Q6H PRN PO PAIN LEVEL 1-3 OR FEVER; Start at 08:30 Morphine Sulfate (morphine) 2 mg Q4H PRN IV PAIN LEVEL 7-10 Last administered on 01/11/17 14:23; Admin Dose 2 MG; Start 01/10/17 at 08:30 Haloperidol (Haldol) 1 mg Q6 PRN IM agitation; Start 01/11/17 at 23:30 Mupirocin (Bactroban) 1 applic BID TOP Last administered on 01/14/17 08:37; Admin Dose 1 APPLIC; Start 01/12/17 at 21:00 Cyanocobalamin (Vitamin B12 Inj) 1,000 mcg Q7D IM Last administered on 19:41; Admin Dose 1,000 MCG; Start 01/13/17 at 19:00 Db Olea DO Jan 14, 2017 14:25
--- NOTE | 2017-01-14 15:06 | PN ---
DATE: 01/14/2017 SUBJECTIVE: Patient seems stable this morning. No new events. She appears in less respiratory dis tress compared to yesterday. PHYSICAL EXAMINATION: VITAL SIGNS: Temperature 98, pulse is 69, blood pressure 131/60, O2 saturation 96% on 5 liters nasa l cannula. NECK: Supple. No JVD or lymphadenopathy. CARDIAC: S1, S2, no added sounds or murmurs. CHEST: Diminished air entry bilaterally. ABDOMEN: Soft, nontender. No guarding or rebound. EXTREMITIES: No cyanosis, clubbing, edema. NEUROLOGIC: Generalized weakness. LABORATORY DATA: White count 4.5, hemoglobin 9.9, platelets of 92. BUN 17, creatinine 2.12. IMPRESSION AND PLAN: 1. End-stage renal disease on hemodialysis. 2. Pulmonary edema with increased vascular congestion. 3. History of coronary artery disease. 4. Sick sinus syndrome with pacemaker PLAN: 1. Status post transfusion of packed red blood cells. Monitor hemoglobin and hematocrit. 2. Continue supplemental O2. 3. Aspiration precautions. 4. Deep venous thrombosis and gastrointestinal prophylaxis. The patient's overall prognosis still remains guarded. Dictated By: SOFIE RYAN/PARKER Conf#: [id number] DID#: [id number]
--- NOTE | 2017-01-14 15:26 | PN ---
Date/Time of Note Date/Time of Note DATE: 01/14/17 TIME: 14:57 Assessment/Plan VTE Prophylaxis VTE Prophylaxis Intervention: SCD's Lines/Catheters IV [facility] Saline Lock Urinary Cath still in place: No Assessment/Plan Assessment/Plan 76 yo female with: 1. Hypoxemic respiratory failure most likely related to pulmonary edema, CHF exacerbation and ESRD Appreciate evaluation and recommendations from Cardiology s/p HD yesterday with transfusion [address] Das/Dr Morris following 2. CAD and likely ischemic cardiomyopathy with EF 55% but also ESRD Volume management through HD Appreciate recs from Cardiology Continue current cardiac meds 3. Sick Sinus Syndrome s/p pacemaker. Stable 4. End-stage renal disease on hemodialysis. HD today with pRBC. 5. Acute on chronic Anemia, no acute bleeding, on Epo with HD. S/p 2 units pRBC with HD yesterday. 6. Hypertension: better controlled with resumption of meds 7. Thrombocytopenia: improving 8.Coag neg blood cx 1/2. Likely contaminant, repeat blood cx negative but has been on Vanco already 9. Dementia/memory impairment: stable, continue current care. Haldol prn agitation, avoiding Benzo due to episode of lethargy/sedation Prophylaxis: SCDs for DVT ppx and continue PPI for GI ppx. Disposition: Need to clarify HD schedule with Nephro for d/c planning soon. Monitor respiratory status for now and titrate O2 down. Subjective 24 Hr Interval Summary Free Text/Dictation Patient much more comfortable today S/p 2 units pRBC yesterday with HD Afebrile and optimized from cardiology standpoint Will clarify d/c plan with Nephrology especially HD frequency Exam/Review of Systems Vital Signs Vitals Vital Signs Date Time Temp Pulse Resp B/P Pulse Ox O2 Delivery O2 Flow Rate FiO2 01/14/17 12:00 69 01/14/17 11:42 98.0 19 131/60 100 01/14/17 09:35 Nasal Cannula 5.0 01/12/17 17:06 36 Intake and Output 01/13/17 01/13/17 01/14/17 15:00 23:00 07:00 Intake Total 1000 ml 720 ml 60 ml Output Total 3000 ml Balance -2000 ml 720 ml 60 ml Exam Constitutional: alert, oriented (x2) Respiratory: diminished breath sounds (bases bilaterally ), normal air movement Cardiovascular: nl pulses, regular rate and rhythm Gastrointestinal: non-tender, soft Extremities: normal pulses, other (no clubbing or cyanosis today, no edema ) Neurological: CARD GRADER II-XII intact, nl mental status (at baseline ), nl speech ( baseline, no dyspnea with speech today ), other (generalized weakness ) Results Result Diagram: 01/14/17 0603 01/14/17 0603 Results 24 hrs Laboratory Tests Test 01/13/17 19:40 01/14/17 06:03 Vitamin B12 Level > 1000 H Anion Gap 12 Basophils # 0.0 Basophils % 0.4 Blood Urea Nitrogen 17 Calcium Level 8.3 L Carbon Dioxide Level 29 Chloride Level 101 Creatinine 2.12 H Eosinophils # 0.2 Eosinophils % 3.6 Glucose Level 77 Hematocrit 31.3 #L Hemoglobin 9.9 #L Lymphocytes # 0.8 Lymphocytes % 18.7 Magnesium Level 1.9 Mean Corpuscular Hemoglobin 32.5 Mean Corpuscular Hemoglobin Concent 31.6 L Mean Corpuscular Volume 102.6 H Mean Platelet Volume 11.8 #H Monocytes # 0.4 Monocytes % 8.3 Neutrophils # 3.1 Neutrophils % 68.6 Nucleated Red Blood Cells # 0.0 Nucleated Red Blood Cells % 0.0 Phosphorus Level 3.0 Platelet Count 92 L Potassium Level 3.4 L Red Blood Count 3.05 #L Red Cell Distribution Width 21.1 #H Sodium Level 139 White Blood Count 4.5 #L Medications Medications Current Medications Aspirin (Halfprin) 81 mg DAILY PO Last administered on 01/14/17 08:37; Admin Dose 81 MG; Start 01/10/17 at 09:00 Docusate Sodium (Colace) 100 mg BID PRN PO CONSTIPATION; Start 01/10/17 at 08: 30 Epoetin Costa (Epogen (Esrd)) 4,000 units MoWeFr@17 SC Last administered on 01/13 17:54; Admin Dose 4,000 UNITS; Start 01/10/17 at 17:00 Folic Acid (Folic Acid) 1 mg DAILY PO Last administered on 01/14/17 08:37; Admin Dose 1 MG; Start 01/10/17 at 09:00 Hydroxychloroquine Sulfate (Plaquenil) 200 mg BID PO Last administered on 08:37; Admin Dose 200 MG; Start 01/10/17 at 09:00 Metoprolol Succinate (Toprol Xl) 50 mg QHS PO Last administered on 01/13/17 20 :33; Admin Dose 50 MG; Start 01/10/17 at 21:00 Naphazoline HCl/ Pheniramine Maleate (Visine-A) 1 drop QID BOTH EYES Last administered on 01/14/17 12:35; Admin Dose 1 DROP; Start 01/10/17 at 09:00 Pantoprazole (Protonix Tab) 40 mg BID PO Last administered on 01/14/17 08:37; Admin Dose 40 MG; Start 01/10/17 at 09:00 Salmeterol Xinafoate/ Fluticasone (Advair 250/50 Diskus) 1 inh BID INH Last administered on 01/14/17 08:37; Admin Dose 1 INH; Start 01/10/17 at 09:00 Sucralfate (Carafate) 1 gm BID PO Last administered on 01/14/17 08:37; Admin Dose 1 GM; Start 01/10/17 at 09:00 Valsartan (Diovan) 160 mg DAILY PO Last administered on 01/14/17 08:37; Admin Dose 160 MG; Start 01/10/17 at 09:00 Vitamin B Complex/ Vitamin C (Berocca) 1 cap DAILY PO Last administered on 01/14 08:37; Admin Dose 1 CAP; Start 01/10/17 at 09:00 Atorvastatin Calcium (Lipitor) 80 mg DAILY PO Last administered on 01/14/17 08 :37; Admin Dose 80 MG; Start 01/10/17 at 09:00 Hydralazine HCl (Apresoline) 50 mg Q6 PO Last administered on 01/13/17 17:54; Admin Dose 50 MG; Start 01/10/17 at 12:00 Ondansetron HCl (Zofran Inj) 4 mg Q6H PRN IV NAUSEA AND/OR VOMITING; Start 08/19 at 08:30 Acetaminophen (Tylenol Tab) 650 mg Q6H PRN PO PAIN LEVEL 1-3 OR FEVER; Start at 08:30 Morphine Sulfate (morphine) 2 mg Q4H PRN IV PAIN LEVEL 7-10 Last administered on 01/11/17 14:23; Admin Dose 2 MG; Start 01/10/17 at 08:30 Haloperidol (Haldol) 1 mg Q6 PRN IM agitation; Start 01/11/17 at 23:30 Mupirocin (Bactroban) 1 applic BID TOP Last administered on 01/14/17 08:37; Admin Dose 1 APPLIC; Start 01/12/17 at 21:00 Cyanocobalamin (Vitamin B12 Inj) 1,000 mcg Q7D IM Last administered on 19:41; Admin Dose 1,000 MCG; Start 01/13/17 at 19:00 LORENA ARRIOLA Jan 14, 2017 15:08
[2017-01-14] MEDS: METOPROLOL (XL) 50 MG TAB PO SCH (20:36)
--- NOTE | 2017-01-14 20:58 | CONS ---
Date/Time of Note Date/Time of Note DATE: 01/14/17 TIME: 20:51 Assessment/Plan Assessment/Plan Additional Assessment/Plan Will dialyze pt with 3.5 K bath Consultation Date/Type/Reason Admit Date/Time Jan 10, 2017 at 10:56 Initial Consult Date 01/10/17 Type of Consultation: rebal Referring Provider: CINDY SHARMA MD 24 HR Interval Summary Free Text/Dictation Pt is awake tho not vert communicative Exam/Review of Systems Vital Signs Vitals Vital Signs Date Time Temp Pulse Resp B/P Pulse Ox O2 Delivery O2 Flow Rate FiO2 01/14/17 20:41 98.9 67 18 156/74 100 01/14/17 20:00 Nasal Cannula 6.0 01/12/17 17:06 36 Intake and Output 01/13/17 01/13/17 01/14/17 15:00 23:00 07:00 Intake Total 1000 ml 720 ml 60 ml Output Total 3000 ml Balance -2000 ml 720 ml 60 ml Exam Constitutional: alert, oriented, well developed Psych: nl mood/affect, no complaints Head: atraumatic, normocephalic Eyes: EOMI, PERRL, nl conjunctiva, nl lids, nl sclera ENMT: nl external ears & nose, nl lips & teeth, nl nasal mucosa & septum Neck: non-tender, supple Respiratory: clear to auscultation, normal air movement Cardiovascular: nl pulses, regular rate and rhythm Gastrointestinal: nl liver, spleen, non-tender, soft Musculoskeletal: nl extremities to inspection, nl gait and stance, other ( Contractures) Extremities: normal pulses, other Neurological: SIGHTSEEING GUIDE II-XII intact, nl mental status, nl speech, nl strength Skin: nl turgor, No rash or lesions Lymph: nl lymph nodes Results K is 3.4 Result Diagram: 01/14/17 0603 01/14/17 0603 Results 24 hrs Laboratory Tests Test 01/14/17 06:03 Anion Gap 12 Basophils # 0.0 Basophils % 0.4 Blood Urea Nitrogen 17 Calcium Level 8.3 L Carbon Dioxide Level 29 Chloride Level 101 Creatinine 2.12 H Eosinophils # 0.2 Eosinophils % 3.6 Glucose Level 77 Hematocrit 31.3 #L Hemoglobin 9.9 #L Lymphocytes # 0.8 Lymphocytes % 18.7 Magnesium Level 1.9 Mean Corpuscular Hemoglobin 32.5 Mean Corpuscular Hemoglobin Concent 31.6 L Mean Corpuscular Volume 102.6 H Mean Platelet Volume 11.8 #H Monocytes # 0.4 Monocytes % 8.3 Neutrophils # 3.1 Neutrophils % 68.6 Nucleated Red Blood Cells # 0.0 Nucleated Red Blood Cells % 0.0 Phosphorus Level 3.0 Platelet Count 92 L Potassium Level 3.4 L Red Blood Count 3.05 #L Red Cell Distribution Width 21.1 #H Sodium Level 139 White Blood Count 4.5 #L Medications Medications Current Medications Aspirin (Halfprin) 81 mg DAILY PO Last administered on 01/14/17 08:37; Admin Dose 81 MG; Start 01/10/17 at 09:00 Docusate Sodium (Colace) 100 mg BID PRN PO CONSTIPATION; Start 01/10/17 at 08: 30 Epoetin Costa (Epogen (Esrd)) 4,000 units MoWeFr@17 SC Last administered on 01/13 17:54; Admin Dose 4,000 UNITS; Start 01/10/17 at 17:00 Folic Acid (Folic Acid) 1 mg DAILY PO Last administered on 01/14/17 08:37; Admin Dose 1 MG; Start 01/10/17 at 09:00 Hydroxychloroquine Sulfate (Plaquenil) 200 mg BID PO Last administered on 20:36; Admin Dose 200 MG; Start 01/10/17 at 09:00 Metoprolol Succinate (Toprol Xl) 50 mg QHS PO Last administered on 01/14/17 20 :36; Admin Dose 50 MG; Start 01/10/17 at 21:00 Naphazoline HCl/ Pheniramine Maleate (Visine-A) 1 drop QID BOTH EYES Last administered on 01/14/17 20:35; Admin Dose 1 DROP; Start 01/10/17 at 09:00 Pantoprazole (Protonix Tab) 40 mg BID PO Last administered on 01/14/17 20:36; Admin Dose 40 MG; Start 01/10/17 at 09:00 Salmeterol Xinafoate/ Fluticasone (Advair 250/50 Diskus) 1 inh BID INH Last administered on 01/14/17 20:35; Admin Dose 1 INH; Start 01/10/17 at 09:00 Sucralfate (Carafate) 1 gm BID PO Last administered on 01/14/17 20:35; Admin Dose 1 GM; Start 01/10/17 at 09:00 Valsartan (Diovan) 160 mg DAILY PO Last administered on 01/14/17 08:37; Admin Dose 160 MG; Start 01/10/17 at 09:00 Vitamin B Complex/ Vitamin C (Berocca) 1 cap DAILY PO Last administered on 01/14 08:37; Admin Dose 1 CAP; Start 01/10/17 at 09:00 Atorvastatin Calcium (Lipitor) 80 mg DAILY PO Last administered on 01/14/17 08 :37; Admin Dose 80 MG; Start 01/10/17 at 09:00 Hydralazine HCl (Apresoline) 50 mg Q6 PO Last administered on 01/14/17 15:54; Admin Dose 50 MG; Start 01/10/17 at 12:00 Ondansetron HCl (Zofran Inj) 4 mg Q6H PRN IV NAUSEA AND/OR VOMITING; Start 08/19 at 08:30 Acetaminophen (Tylenol Tab) 650 mg Q6H PRN PO PAIN LEVEL 1-3 OR FEVER; Start at 08:30 Morphine Sulfate (morphine) 2 mg Q4H PRN IV PAIN LEVEL 7-10 Last administered on 01/11/17 14:23; Admin Dose 2 MG; Start 01/10/17 at 08:30 Haloperidol (Haldol) 1 mg Q6 PRN IM agitation; Start 01/11/17 at 23:30 Mupirocin (Bactroban) 1 applic BID TOP Last administered on 01/14/17 20:34; Admin Dose 1 APPLIC; Start 01/12/17 at 21:00 Cyanocobalamin (Vitamin B12 Inj) 1,000 mcg Q7D IM Last administered on 19:41; Admin Dose 1,000 MCG; Start 01/13/17 at 19:00 DIANA KAMARA MD Jan 14, 2017 20:58
[2017-01-15] VITALS (21 sets, daily range): BP systolic 110–169; BP diastolic 56–72; PULSE 61–76; RESP 17–20
[2017-01-15] MEDS: ALBUTEROL/IPRATROPIUM (NEB) 3 ML AMP NEB SCH ×5 (01:42→20:27)
[2017-01-15] MEDS: LEVOTHYROXINE 50 MCG TAB PO SCH (06:06)
[2017-01-15 06:13] LABS: ADD SCAN DIFF NO
[2017-01-15 06:25] LABS: BASOPHILS % 0.8 % (0.0-2.0); EOSINOPHILS # 0.2 10^3/ul (0.0-0.5); EOSINOPHILS % 3.9 % (0.0-7.0); HEMATOCRIT 33.6 % (37.0-47.0); HEMOGLOBIN 10.5 g/dl (12.0-16.0); LYMPHOCYTES # 0.8 10^3/ul (0.8-2.9); LYMPHOCYTES % 20.8 % (15.0-51.0); MEAN CORPUSCULAR HEMOGLOBIN 32.2 pg (29.0-33.0); MEAN CORPUSCULAR HGB CONC 31.3 g/dl (32.0-37.0); MEAN CORPUSCULAR VOLUME 103.1 fl (82.0-101.0); MEAN PLATELET VOLUME 10.3 fl (7.4-10.4); MONOCYTE # 0.4 10^3/ul (0.3-0.9); MONOCYTES % 10.4 % (0.0-11.0); NEUTROPHIL # 2.4 10^3/ul (1.6-7.5); NEUTROPHILS % 63.1 % (39.0-77.0); PLATELET COUNT 111 10^3/UL (140-415); RED BLOOD COUNT 3.26 10^6/ul (4.20-5.40); RED CELL DISTRIBUTION WIDTH 19.5 % (11.5-14.5); WHITE BLOOD COUNT 3.8 10^3/ul (4.8-10.8)
[2017-01-15 06:30] LABS: POTASSIUM 3.7 mmol/L (3.5-5.1)
[2017-01-15 06:31] LABS: MAGNESIUM 1.9 mg/dl (1.7-2.5); PHOSPHORUS 3.7 mg/dl (2.5-4.9)
[2017-01-15 06:32] LABS: CREATININE 2.98 mg/dl (0.44-1.00)
[2017-01-15 06:33] LABS: CALCIUM 8.5 mg/dl (8.4-10.2)
[2017-01-15] MEDS: SEVELAMER CARBONATE 0.8 GM PKT PO SCH ×3 (07:55→17:44)
[2017-01-15] MEDS: VALSARTAN 160 MG TAB PO SCH (09:28)
[2017-01-15] MEDS: FOLIC ACID 1 MG TAB PO SCH (09:28)
[2017-01-15] MEDS: VITAMIN B COMPLEX/VIT C CAP PO SCH (09:28)
[2017-01-15] MEDS: ASPIRIN (EC) 81 MG TAB PO SCH (09:28)
[2017-01-15] MEDS: HYDROXYCHLOROQUINE 200 MG TAB PO SCH ×2 (09:28→21:26)
[2017-01-15] MEDS: SUCRALFATE 1 GM TAB PO SCH ×2 (09:28→21:29)
[2017-01-15] MEDS: ATORVASTATIN 80 MG TAB PO SCH (09:28)
[2017-01-15] MEDS: PANTOPRAZOLE (EC) 40 MG TAB PO SCH ×2 (09:28→21:27)
[2017-01-15] MEDS: NAPHAZOLINE/PHENIRAMINE 15 ML OPH BOTH EYES SCH ×4 (09:29→21:33)
[2017-01-15] MEDS: SALMETEROL/FLUTICASONE 250/50 INHA INH SCH ×2 (09:29→21:32)
[2017-01-15] MEDS: MUPIROCIN 2% 22 GM OINT TOP SCH ×2 (09:29→21:32)
--- NOTE | 2017-01-15 10:56 | PN ---
Date/Time of Note Date/Time of Note DATE: 01/15/17 TIME: 10:37 Assessment/Plan VTE Prophylaxis VTE Prophylaxis Intervention: SCD's Lines/Catheters IV Catheter Type (from [facility]): Saline Lock Urinary Cath still in place: No Assessment/Plan Assessment/Plan 76 yo female with: 1. Hypoxemic respiratory failure 2ry to pulmonary edema, CHF exacerbation and ESRD. On 2L NC Appreciate evaluation and recommendations from Cardiology Likely due for HD today Dr. Das/Dr Morris following D/c plan in the next 24 to 48 hrs 2. CAD and likely ischemic cardiomyopathy with EF 55% but also ESRD Volume management through HD Appreciate recs from Cardiology Continue current cardiac meds 3. Sick Sinus Syndrome s/p pacemaker. Stable 4. End-stage renal disease on hemodialysis. HD likely today. 5. Acute on chronic Anemia, no acute bleeding, on Epo with HD. S/p 2 units pRBC with last HD. 6. Hypertension: better controlled with resumption of meds 7. Thrombocytopenia: improving 8. Coag neg blood cx 1/2. Likely contaminant, repeat blood cx negative but has been on Vanco already. Can be given with HD if needed 9. Dementia/memory impairment: stable, continue current care. Haldol prn agitation, avoiding Benzo due to episode of lethargy/sedation 10. ? Hearing deficit, ear exam wnl. Prophylaxis: SCDs for DVT ppx and continue PPI for GI ppx. Disposition: Need to clarify HD schedule with Nephro for d/c planning within 24 to 48 hrs Monitor respiratory status for now and titrate O2 down. Subjective 24 Hr Interval Summary Free Text/Dictation Patient remains stable, currently on 2L NC doing well HD today D/c plan back to SNF within 24 to 48 hrs Exam/Review of Systems Vital Signs Vitals Vital Signs Date Time Temp Pulse Resp B/P Pulse Ox O2 Delivery O2 Flow Rate FiO2 01/15/17 09:53 2.0 01/15/17 09:51 73 22 98 Nasal Cannula 32 01/15/17 07:03 97.7 117/56 Intake and Output 01/14/17 01/14/17 01/15/17 15:00 23:00 07:00 Intake Total 620 ml 60 ml Balance 620 ml 60 ml Exam Constitutional: alert, frail, oriented ENMT: tympanic membranes (wnl ) Respiratory: diminished breath sounds (at bases bilaterally ), normal air movement Cardiovascular: nl pulses, regular rate and rhythm Gastrointestinal: non-tender, soft Musculoskeletal: nl extremities to inspection Extremities: normal pulses Neurological: LICENSED REAL E[employer] BROKER II-XII intact, nl mental status, nl speech, other ( generalised weakness ) Results Result Diagram: 01/15/17 0600 01/15/17 0600 Results 24 hrs Laboratory Tests Test 01/15/17 06:00 Anion Gap 16 Basophils # 0.0 Basophils % 0.8 Blood Urea Nitrogen 29 #H Calcium Level 8.5 Carbon Dioxide Level 27 Chloride Level 99 Creatinine 2.98 H Eosinophils # 0.2 Eosinophils % 3.9 Glucose Level 75 Hematocrit 33.6 L Hemoglobin 10.5 L Lymphocytes # 0.8 Lymphocytes % 20.8 Magnesium Level 1.9 Mean Corpuscular Hemoglobin 32.2 Mean Corpuscular Hemoglobin Concent 31.3 L Mean Corpuscular Volume 103.1 H Mean Platelet Volume 10.3 Monocytes # 0.4 Monocytes % 10.4 Neutrophils # 2.4 Neutrophils % 63.1 Nucleated Red Blood Cells # 0.0 Nucleated Red Blood Cells % 0.0 Phosphorus Level 3.7 Platelet Count 111 #L Potassium Level 3.7 Red Blood Count 3.26 L Red Cell Distribution Width 19.5 H Sodium Level 138 White Blood Count 3.8 L Medications Medications Current Medications Aspirin (Halfprin) 81 mg DAILY PO Last administered on 01/15/17 09:28; Admin Dose 81 MG; Start 01/10/17 at 09:00 Docusate Sodium (Colace) 100 mg BID PRN PO CONSTIPATION; Start 01/10/17 at 08: 30 Epoetin Costa (Epogen (Esrd)) 4,000 units MoWeFr@17 SC Last administered on 01/13 17:54; Admin Dose 4,000 UNITS; Start 01/10/17 at 17:00 Folic Acid (Folic Acid) 1 mg DAILY PO Last administered on 01/15/17 09:28; Admin Dose 1 MG; Start 01/10/17 at 09:00 Hydroxychloroquine Sulfate (Plaquenil) 200 mg BID PO Last administered on 09:28; Admin Dose 200 MG; Start 01/10/17 at 09:00 Metoprolol Succinate (Toprol Xl) 50 mg QHS PO Last administered on 01/14/17 20 :36; Admin Dose 50 MG; Start 01/10/17 at 21:00 Naphazoline HCl/ Pheniramine Maleate (Visine-A) 1 drop QID BOTH EYES Last administered on 01/15/17 09:29; Admin Dose 1 DROP; Start 01/10/17 at 09:00 Pantoprazole (Protonix Tab) 40 mg BID PO Last administered on 01/15/17 09:28; Admin Dose 40 MG; Start 01/10/17 at 09:00 Salmeterol Xinafoate/ Fluticasone (Advair 250/50 Diskus) 1 inh BID INH Last administered on 01/15/17 09:29; Admin Dose 1 INH; Start 01/10/17 at 09:00 Sucralfate (Carafate) 1 gm BID PO Last administered on 01/15/17 09:28; Admin Dose 1 GM; Start 01/10/17 at 09:00 Valsartan (Diovan) 160 mg DAILY PO Last administered on 01/15/17 09:28; Admin Dose 160 MG; Start 01/10/17 at 09:00 Vitamin B Complex/ Vitamin C (Berocca) 1 cap DAILY PO Last administered on 01/15 09:28; Admin Dose 1 CAP; Start 01/10/17 at 09:00 Atorvastatin Calcium (Lipitor) 80 mg DAILY PO Last administered on 01/15/17 09 :28; Admin Dose 80 MG; Start 01/10/17 at 09:00 Hydralazine HCl (Apresoline) 50 mg Q6 PO Last administered on 01/15/17 06:06; Admin Dose 50 MG; Start 01/10/17 at 12:00 Ondansetron HCl (Zofran Inj) 4 mg Q6H PRN IV NAUSEA AND/OR VOMITING; Start 08/19 at 08:30 Acetaminophen (Tylenol Tab) 650 mg Q6H PRN PO PAIN LEVEL 1-3 OR FEVER; Start at 08:30 Morphine Sulfate (morphine) 2 mg Q4H PRN IV PAIN LEVEL 7-10 Last administered on 01/11/17 14:23; Admin Dose 2 MG; Start 01/10/17 at 08:30 Haloperidol (Haldol) 1 mg Q6 PRN IM agitation; Start 01/11/17 at 23:30 Mupirocin (Bactroban) 1 applic BID TOP Last administered on 01/15/17 09:29; Admin Dose 1 APPLIC; Start 01/12/17 at 21:00 Cyanocobalamin (Vitamin B12 Inj) 1,000 mcg Q7D IM Last administered on 19:41; Admin Dose 1,000 MCG; Start 01/13/17 at 19:00 LORENA ARRIOLA Jan 15, 2017 10:56
--- NOTE | 2017-01-15 13:29 | PN ---
DATE: 01/15/2017 SUBJECTIVE: Patient Hema is stable this morning. No new events. PHYSICAL EXAMINATION: VITAL SIGNS: Temperature 98, pulse is 65, blood pressure 119/58, O2 saturation 96%, FIO2 of 3 liter s. NECK: Supple. No JVD or lymphadenopathy. CARDIAC: S1, S2, no added sounds or murmurs. CHEST: Diminished air entry bilaterally. ABDOMEN: Soft, nontender. No guarding or rebound. EXTREMITIES: No cyanosis, clubbing, or edema. NEUROLOGIC: Generalized weakness. LABORATORY DATA: White count 3.8, hemoglobin 10.5, platelets 111. Chemistry: BUN 29, creatinine 2 .98. IMPRESSION AND PLAN: 1. Encephalopathy, likely toxic metabolic. 2. Status post hypoxemic respiratory failure. 3. End-stage renal failure on hemodialysis. 4. History of coronary artery disease by history. 5. History of sick sinus syndrome. PLAN: 1. Continue hemodialysis with volume removal as tolerated. 2. Aspiration precautions. 3. Pulmonary toilet. 4. Discharge planning okay from pulmonary standpoint. Dictated By: SOFIE RYAN/PARKER Conf#: [id number] DID#: [id number]
--- NOTE | 2017-01-15 15:13 | CONS ---
Date/Time of Note Date/Time of Note DATE: 01/15/17 TIME: 15:11 Assessment/Plan Assessment/Plan Additional Assessment/Plan 76 yo Female with 1) Respiratory Distress 2nd to Pulm Edema/Volume Overload 2) ESRD on HD TTS, Missed Last HD treatment 3) Anemia, Chronic, CKD 4) Thrombocytopenia 5) HTN Uncontrolled 6) Elevated Troponin 7) Mineral Bone Disease, CKD 8) Mild Hypernatremia 9) Left Chest Perma-cath S/p HD, UF tolerated, -2300 Cont maintenance HD Schedule, MWF Cont current Rx and plan Consultation Date/Type/Reason Admit Date/Time Jan 10, 2017 at 10:56 Initial Consult Date 01/10/17 Type of Consultation: Renal Referring Provider: CINDY SHARMA MD 24 HR Interval Summary Free Text/Dictation S/p HD today Exam/Review of Systems Vital Signs Vitals Vital Signs Date Time Temp Pulse Resp B/P Pulse Ox O2 Delivery O2 Flow Rate FiO2 01/15/17 14:59 2.0 01/15/17 13:56 68 14 01/15/17 12:02 96 Nasal Cannula 01/15/17 11:51 98.0 119/58 01/15/17 09:51 32 Intake and Output 01/14/17 01/14/17 01/15/17 15:00 23:00 07:00 Intake Total 620 ml 60 ml Balance 620 ml 60 ml Exam Constitutional: No distress ENMT: mucosa pink and moist Respiratory: No diminished breath sounds, No labored breathing Cardiovascular: regular rate and rhythm, No edema Gastrointestinal: non-tender, soft Neurological: No lethargic Skin: No diaphoresis Results Result Diagram: 01/15/17 0600 01/15/17 0600 Results 24 hrs Laboratory Tests Test 01/15/17 06:00 Anion Gap 16 Basophils # 0.0 Basophils % 0.8 Blood Urea Nitrogen 29 #H Calcium Level 8.5 Carbon Dioxide Level 27 Chloride Level 99 Creatinine 2.98 H Eosinophils # 0.2 Eosinophils % 3.9 Glucose Level 75 Hematocrit 33.6 L Hemoglobin 10.5 L Lymphocytes # 0.8 Lymphocytes % 20.8 Magnesium Level 1.9 Mean Corpuscular Hemoglobin 32.2 Mean Corpuscular Hemoglobin Concent 31.3 L Mean Corpuscular Volume 103.1 H Mean Platelet Volume 10.3 Monocytes # 0.4 Monocytes % 10.4 Neutrophils # 2.4 Neutrophils % 63.1 Nucleated Red Blood Cells # 0.0 Nucleated Red Blood Cells % 0.0 Phosphorus Level 3.7 Platelet Count 111 #L Potassium Level 3.7 Red Blood Count 3.26 L Red Cell Distribution Width 19.5 H Sodium Level 138 White Blood Count 3.8 L Medications Medications Current Medications Aspirin (Halfprin) 81 mg DAILY PO Last administered on 01/15/17 09:28; Admin Dose 81 MG; Start 01/10/17 at 09:00 Docusate Sodium (Colace) 100 mg BID PRN PO CONSTIPATION; Start 01/10/17 at 08: 30 Epoetin Costa (Epogen (Esrd)) 4,000 units MoWeFr@17 SC Last administered on 01/13 17:54; Admin Dose 4,000 UNITS; Start 01/10/17 at 17:00 Folic Acid (Folic Acid) 1 mg DAILY PO Last administered on 01/15/17 09:28; Admin Dose 1 MG; Start 01/10/17 at 09:00 Hydroxychloroquine Sulfate (Plaquenil) 200 mg BID PO Last administered on 09:28; Admin Dose 200 MG; Start 01/10/17 at 09:00 Metoprolol Succinate (Toprol Xl) 50 mg QHS PO Last administered on 01/14/17 20 :36; Admin Dose 50 MG; Start 01/10/17 at 21:00 Naphazoline HCl/ Pheniramine Maleate (Visine-A) 1 drop QID BOTH EYES Last administered on 01/15/17 13:02; Admin Dose 1 DROP; Start 01/10/17 at 09:00 Pantoprazole (Protonix Tab) 40 mg BID PO Last administered on 01/15/17 09:28; Admin Dose 40 MG; Start 01/10/17 at 09:00 Salmeterol Xinafoate/ Fluticasone (Advair 250/50 Diskus) 1 inh BID INH Last administered on 01/15/17 09:29; Admin Dose 1 INH; Start 01/10/17 at 09:00 Sucralfate (Carafate) 1 gm BID PO Last administered on 01/15/17 09:28; Admin Dose 1 GM; Start 01/10/17 at 09:00 Valsartan (Diovan) 160 mg DAILY PO Last administered on 01/15/17 09:28; Admin Dose 160 MG; Start 01/10/17 at 09:00 Vitamin B Complex/ Vitamin C (Berocca) 1 cap DAILY PO Last administered on 01/15 09:28; Admin Dose 1 CAP; Start 01/10/17 at 09:00 Atorvastatin Calcium (Lipitor) 80 mg DAILY PO Last administered on 01/15/17 09 :28; Admin Dose 80 MG; Start 01/10/17 at 09:00 Hydralazine HCl (Apresoline) 50 mg Q6 PO Last administered on 01/15/17 06:06; Admin Dose 50 MG; Start 01/10/17 at 12:00 Ondansetron HCl (Zofran Inj) 4 mg Q6H PRN IV NAUSEA AND/OR VOMITING; Start 08/19 at 08:30 Acetaminophen (Tylenol Tab) 650 mg Q6H PRN PO PAIN LEVEL 1-3 OR FEVER; Start at 08:30 Morphine Sulfate (morphine) 2 mg Q4H PRN IV PAIN LEVEL 7-10 Last administered on 01/11/17 14:23; Admin Dose 2 MG; Start 01/10/17 at 08:30 Haloperidol (Haldol) 1 mg Q6 PRN IM agitation; Start 01/11/17 at 23:30 Mupirocin (Bactroban) 1 applic BID TOP Last administered on 01/15/17 09:29; Admin Dose 1 APPLIC; Start 01/12/17 at 21:00 Cyanocobalamin (Vitamin B12 Inj) 1,000 mcg Q7D IM Last administered on 19:41; Admin Dose 1,000 MCG; Start 01/13/17 at 19:00 EDGARDO DUKES MD Jan 15, 2017 15:13
[2017-01-15] MEDS: EPOETIN 4000 UNITS/1 ML INJ (ESRD) SC SCH (17:45)
[2017-01-15] MEDS: METOPROLOL (XL) 50 MG TAB PO SCH (21:32)
[2017-01-16] VITALS (14 sets, daily range): BP systolic 138–165; BP diastolic 63–72; PULSE 59–76; RESP 18–20
[2017-01-16] MEDS: ALBUTEROL/IPRATROPIUM (NEB) 3 ML AMP NEB SCH ×6 (01:32→20:19)
[2017-01-16 06:30] LABS: POTASSIUM 3.6 mmol/L (3.5-5.1)
[2017-01-16 06:33] LABS: CALCIUM 8.3 mg/dl (8.4-10.2); CREATININE 2.4 mg/dl (0.44-1.00)
[2017-01-16] MEDS: LEVOTHYROXINE 50 MCG TAB PO SCH (06:38)
[2017-01-16] MEDS: SEVELAMER CARBONATE 0.8 GM PKT PO SCH ×3 (08:48→17:55)
[2017-01-16] MEDS: SALMETEROL/FLUTICASONE 250/50 INHA INH SCH ×2 (08:48→20:59)
[2017-01-16] MEDS: VALSARTAN 160 MG TAB PO SCH (08:49)
[2017-01-16] MEDS: FOLIC ACID 1 MG TAB PO SCH (08:49)
[2017-01-16] MEDS: MUPIROCIN 2% 22 GM OINT TOP SCH ×2 (08:49→20:58)
[2017-01-16] MEDS: ATORVASTATIN 80 MG TAB PO SCH (08:49)
[2017-01-16] MEDS: VITAMIN B COMPLEX/VIT C CAP PO SCH (08:49)
[2017-01-16] MEDS: SUCRALFATE 1 GM TAB PO SCH ×2 (08:49→20:58)
[2017-01-16] MEDS: PANTOPRAZOLE (EC) 40 MG TAB PO SCH ×2 (08:49→20:57)
[2017-01-16] MEDS: ASPIRIN (EC) 81 MG TAB PO SCH (08:49)
[2017-01-16] MEDS: HYDROXYCHLOROQUINE 200 MG TAB PO SCH ×2 (08:49→20:58)
[2017-01-16] MEDS: NAPHAZOLINE/PHENIRAMINE 15 ML OPH BOTH EYES SCH ×4 (08:49→20:59)
--- NOTE | 2017-01-16 10:07 | PN ---
Date/Time of Note Date/Time of Note DATE: 01/16/17 TIME: 09:58 Assessment/Plan VTE Prophylaxis VTE Prophylaxis Intervention: SCD's Lines/Catheters IV [facility] Saline Lock Urinary Cath still in place: No Assessment/Plan Assessment/Plan 76 yo female with: 1. Hypoxemic respiratory failure 2ry to pulmonary edema, CHF exacerbation and ESRD. On 2L NC with good sats Appreciate evaluation and recommendations from Cardiology Dr. Das/Dr Morris following and patient to be on M/W/F schedule for HD D/c plan back to SNF today and resume outpatient HD schedule tomorrow 2. CAD and likely ischemic cardiomyopathy with EF 55% but also ESRD Volume management through HD, 3x/wk Appreciate recs from Cardiology Continue current cardiac meds 3. Sick Sinus Syndrome s/p pacemaker. Stable 4. End-stage renal disease on hemodialysis. HD 3x/wk per Nephrology. 5. Acute on chronic Anemia, no acute bleeding, on Epo with HD. S/p 2 units pRBC with last HD, Hb stable at 10.5 6. Hypertension: better controlled with resumption of meds 7. Thrombocytopenia: improving/resolving 8. Coag neg blood cx 1/2. Likely contaminant, repeat blood cx negative but has been on Vanco already. Can be given with HD if needed x 5 more doses at most 9. Dementia/memory impairment: stable, continue current care. Haldol prn agitation, avoiding Benzo due to episode of lethargy/sedation 10. ? Hearing deficit, ear exam wnl. Refer ENT as outpatient if needed Prophylaxis: SCDs for DVT ppx and continue PPI for GI ppx. Disposition: D/c back to SNF today with outpatient HD tomorrow and referral to ENT outpatient if needed. Will need O2 2L as outpatient. Subjective 24 Hr Interval Summary Free Text/Dictation Patient remains stable and plan to d/c back to SNF today on O2 supp and to resume outpatient HD No complaints today Exam/Review of Systems Vital Signs Vitals Vital Signs Date Time Temp Pulse Resp B/P Pulse Ox O2 Delivery O2 Flow Rate FiO2 01/16/17 08:30 73 01/16/17 08:09 Nasal Cannula 3.0 01/16/17 07:58 98 01/16/17 07:58 20 01/16/17 07:40 98.1 143/64 01/16/17 01:32 32 Intake and Output 01/15/17 01/15/17 01/16/17 15:00 23:00 07:00 Intake Total 500 ml 240 ml Output Total 2800 ml Balance -2300 ml 240 ml Exam Constitutional: alert, frail, oriented Respiratory: clear to auscultation, normal air movement, other (occasional exp wheezes ) Cardiovascular: nl pulses, regular rate and rhythm Gastrointestinal: non-tender, soft Musculoskeletal: nl extremities to inspection Extremities: normal pulses, other (no edema, clubing or cyanosis ) Neurological: BARREL DRILLER II-XII intact, nl mental status, nl speech, other ( generalised weakness ) Results Result Diagram: 01/15/17 0600 01/16/17 0540 Results 24 hrs Laboratory Tests Test 01/16/17 05:40 Anion Gap 15 Blood Urea Nitrogen 22 H Calcium Level 8.3 L Carbon Dioxide Level 27 Chloride Level 99 Creatinine 2.40 H Glucose Level 104 Magnesium Level 2.0 Potassium Level 3.6 Random Vancomycin Level 12.5 Sodium Level 137 Medications Medications Current Medications Aspirin (Halfprin) 81 mg DAILY PO Last administered on 01/16/17 08:49; Admin Dose 81 MG; Start 01/10/17 at 09:00 Docusate Sodium (Colace) 100 mg BID PRN PO CONSTIPATION; Start 01/10/17 at 08: 30 Epoetin Costa (Epogen (Esrd)) 4,000 units MoWeFr@17 SC Last administered on 01/15 17:45; Admin Dose 4,000 UNITS; Start 01/10/17 at 17:00 Folic Acid (Folic Acid) 1 mg DAILY PO Last administered on 01/16/17 08:49; Admin Dose 1 MG; Start 01/10/17 at 09:00 Hydroxychloroquine Sulfate (Plaquenil) 200 mg BID PO Last administered on 08:49; Admin Dose 200 MG; Start 01/10/17 at 09:00 Metoprolol Succinate (Toprol Xl) 50 mg QHS PO Last administered on 01/15/17 21 :32; Admin Dose 50 MG; Start 01/10/17 at 21:00 Naphazoline HCl/ Pheniramine Maleate (Visine-A) 1 drop QID BOTH EYES Last administered on 01/16/17 08:49; Admin Dose 1 DROP; Start 01/10/17 at 09:00 Pantoprazole (Protonix Tab) 40 mg BID PO Last administered on 01/16/17 08:49; Admin Dose 40 MG; Start 01/10/17 at 09:00 Salmeterol Xinafoate/ Fluticasone (Advair 250/50 Diskus) 1 inh BID INH Last administered on 01/16/17 08:48; Admin Dose 1 INH; Start 01/10/17 at 09:00 Sucralfate (Carafate) 1 gm BID PO Last administered on 01/16/17 08:49; Admin Dose 1 GM; Start 01/10/17 at 09:00 Valsartan (Diovan) 160 mg DAILY PO Last administered on 01/16/17 08:49; Admin Dose 160 MG; Start 01/10/17 at 09:00 Vitamin B Complex/ Vitamin C (Berocca) 1 cap DAILY PO Last administered on 01/16 08:49; Admin Dose 1 CAP; Start 01/10/17 at 09:00 Atorvastatin Calcium (Lipitor) 80 mg DAILY PO Last administered on 01/16/17 08 :49; Admin Dose 80 MG; Start 01/10/17 at 09:00 Hydralazine HCl (Apresoline) 50 mg Q6 PO Last administered on 01/16/17 06:38; Admin Dose 50 MG; Start 01/10/17 at 12:00 Ondansetron HCl (Zofran Inj) 4 mg Q6H PRN IV NAUSEA AND/OR VOMITING; Start 08/19 at 08:30 Acetaminophen (Tylenol Tab) 650 mg Q6H PRN PO PAIN LEVEL 1-3 OR FEVER; Start at 08:30 Morphine Sulfate (morphine) 2 mg Q4H PRN IV PAIN LEVEL 7-10 Last administered on 01/11/17 14:23; Admin Dose 2 MG; Start 01/10/17 at 08:30 Haloperidol (Haldol) 1 mg Q6 PRN IM agitation; Start 01/11/17 at 23:30 Mupirocin (Bactroban) 1 applic BID TOP Last administered on 01/16/17 08:49; Admin Dose 1 APPLIC; Start 01/12/17 at 21:00 Cyanocobalamin 1000 mcg 1,000 mcg Q7D IM Last administered on 3/13/17at 19:41; Admin Dose 1,000 MCG; Start 01/13/17 at 19:00 Vancomycin HCl (Vancocin) 250 ml @ 125 mls/hr Q96H IVPB ; Start 01/16/17 at 11: 00 LORENA ARRIOLA Jan 16, 2017 10:06
--- NOTE | 2017-01-16 10:21 | PDOCDIS ---
Discharge Instructions CONDITION Patient Condition: Stable HOME CARE INSTRUCTIONS: Special Diet: RENAL ACTIVITY: Activity Restrictions: No Restrictions FOLLOW UP/APPOINTMENTS Appointments Follow up with Outpatient Nephro and HD tomorrow Follow up with PCP within 1 week LORENA ARRIOLA Jan 16, 2017 10:21
[2017-01-16] MEDS ORDERED: VANCOMYCIN 1 GM in NS 250 ML IVPB SCH (11:00)
--- NOTE | 2017-01-16 11:19 | CONS ---
Date/Time of Note Date/Time of Note DATE: 01/16/17 TIME: 11:16 Assessment/Plan Assessment/Plan Additional Assessment/Plan Assessment recommendations; patient admitted for flash pulmonary edema after missing her hemodialysis session with marked overall clinical improvement. 2. End-stage renal disease . 3. Kyphoscoliosis very difficult on chest x-ray to make out any infiltrative changes. 4. History of anemia and mild thrombocytopenia which both appear fairly stable. Continue current treatment. Consultation Date/Type/Reason Admit Date/Time Jan 10, 2017 at 10:56 Initial Consult Date 01/10/17 Type of Consultation: Pulmonary Referring Provider: CINDY SHARMA MD 24 HR Interval Summary Free Text/Dictation Patient condition is markedly improved. She has been transferred out of ICU to the telemetry unit. Is completely awake alert denies any shortness of breath, chest pain. General exam; elderly lady, awake alert currently in no distress on supplemental oxygen via nasal cannula at 2 L/min. Exam/Review of Systems Vital Signs Vitals Vital Signs Date Time Temp Pulse Resp B/P Pulse Ox O2 Delivery O2 Flow Rate FiO2 01/16/17 08:30 73 01/16/17 08:09 Nasal Cannula 3.0 01/16/17 07:58 98 01/16/17 07:58 20 01/16/17 07:40 98.1 143/64 01/16/17 01:32 32 Intake and Output 01/15/17 01/15/17 01/16/17 15:00 23:00 07:00 Intake Total 500 ml 240 ml Output Total 2800 ml Balance -2300 ml 240 ml Exam HEENT exam; supple neck, no JVD. No lymphadenopathy. Midline trachea. Patient is edentulous and wears dentures. Has bilateral intraocular lens implants. No neck masses, no thyromegaly. Next Chest examination; diminished posterior breath sound bilaterally. Patient has kyphoscoliosis. S1-S2 audible, no murmurs. Regular rhythm. Abdomen exam is; soft, nontender. No organomegaly. Bowel sounds audible. Extremity exam is; no peripheral edema. [employer]PORATE ADMINISTRATIVE ASSISTANT examination; no focal deficit. Results Result Diagram: 01/15/17 0600 01/16/17 0540 Results 24 hrs Laboratory Tests Test 01/16/17 05:40 Anion Gap 15 Blood Urea Nitrogen 22 H Calcium Level 8.3 L Carbon Dioxide Level 27 Chloride Level 99 Creatinine 2.40 H Glucose Level 104 Magnesium Level 2.0 Potassium Level 3.6 Random Vancomycin Level 12.5 Sodium Level 137 Medications Medications Current Medications Aspirin (Halfprin) 81 mg DAILY PO Last administered on 01/16/17 08:49; Admin Dose 81 MG; Start 01/10/17 at 09:00 Docusate Sodium (Colace) 100 mg BID PRN PO CONSTIPATION; Start 01/10/17 at 08: 30 Epoetin Costa (Epogen (Esrd)) 4,000 units MoWeFr@17 SC Last administered on 01/15 17:45; Admin Dose 4,000 UNITS; Start 01/10/17 at 17:00 Folic Acid (Folic Acid) 1 mg DAILY PO Last administered on 01/16/17 08:49; Admin Dose 1 MG; Start 01/10/17 at 09:00 Hydroxychloroquine Sulfate (Plaquenil) 200 mg BID PO Last administered on 08:49; Admin Dose 200 MG; Start 01/10/17 at 09:00 Metoprolol Succinate (Toprol Xl) 50 mg QHS PO Last administered on 01/15/17 21 :32; Admin Dose 50 MG; Start 01/10/17 at 21:00 Naphazoline HCl/ Pheniramine Maleate (Visine-A) 1 drop QID BOTH EYES Last administered on 01/16/17 08:49; Admin Dose 1 DROP; Start 01/10/17 at 09:00 Pantoprazole (Protonix Tab) 40 mg BID PO Last administered on 01/16/17 08:49; Admin Dose 40 MG; Start 01/10/17 at 09:00 Salmeterol Xinafoate/ Fluticasone (Advair 250/50 Diskus) 1 inh BID INH Last administered on 01/16/17 08:48; Admin Dose 1 INH; Start 01/10/17 at 09:00 Sucralfate (Carafate) 1 gm BID PO Last administered on 01/16/17 08:49; Admin Dose 1 GM; Start 01/10/17 at 09:00 Valsartan (Diovan) 160 mg DAILY PO Last administered on 01/16/17 08:49; Admin Dose 160 MG; Start 01/10/17 at 09:00 Vitamin B Complex/ Vitamin C (Berocca) 1 cap DAILY PO Last administered on 01/16 08:49; Admin Dose 1 CAP; Start 01/10/17 at 09:00 Atorvastatin Calcium (Lipitor) 80 mg DAILY PO Last administered on 01/16/17 08 :49; Admin Dose 80 MG; Start 01/10/17 at 09:00 Hydralazine HCl (Apresoline) 50 mg Q6 PO Last administered on 01/16/17 06:38; Admin Dose 50 MG; Start 01/10/17 at 12:00 Ondansetron HCl (Zofran Inj) 4 mg Q6H PRN IV NAUSEA AND/OR VOMITING; Start 08/19 at 08:30 Acetaminophen (Tylenol Tab) 650 mg Q6H PRN PO PAIN LEVEL 1-3 OR FEVER; Start at 08:30 Morphine Sulfate (morphine) 2 mg Q4H PRN IV PAIN LEVEL 7-10 Last administered on 01/11/17 14:23; Admin Dose 2 MG; Start 01/10/17 at 08:30 Haloperidol (Haldol) 1 mg Q6 PRN IM agitation; Start 01/11/17 at 23:30 Mupirocin (Bactroban) 1 applic BID TOP Last administered on 01/16/17 08:49; Admin Dose 1 APPLIC; Start 01/12/17 at 21:00 Cyanocobalamin 1000 mcg 1,000 mcg Q7D IM Last administered on 01/13/17 19:41; Admin Dose 1,000 MCG; Start 01/13/17 at 19:00 Vancomycin HCl (Vancocin) 250 ml @ 125 mls/hr Q96H IVPB Last administered on 11:01; Admin Dose 125 MLS/HR; Start 01/16/17 at 11:00 TONY MEHTA Jan 16, 2017 11:18
--- NOTE | 2017-01-16 15:45 | CONS ---
Date/Time of Note Date/Time of Note DATE: 01/16/17 TIME: 15:44 Assessment/Plan Assessment/Plan Additional Assessment/Plan Acute decompensated diastolic congestive heart failure, improved Hypertension urgency, resolved Mitral and tricuspid valve regurgitation Moderate aortic stenosis End-stage renal disease on hemodialysis Hypertension History of pacemaker Possible poor compliance -Blood pressure trend overall improved. Fluid management via hemodialysis as per our nephrology colleagues. Consultation Date/Type/Reason Admit Date/Time Jan 10, 2017 at 10:56 Initial Consult Date 01/10/17 Type of Consultation: cv Referring Provider: CINDY SHARMA MD 24 HR Interval Summary Free Text/Dictation Patient denies shortness of breath, chest pain Exam/Review of Systems Vital Signs Vitals Vital Signs Date Time Temp Pulse Resp B/P Pulse Ox O2 Delivery O2 Flow Rate FiO2 01/16/17 15:35 98.0 76 18 138/64 96 01/16/17 12:16 Nasal Cannula 2.0 01/16/17 01:32 32 Intake and Output 01/15/17 01/15/17 01/16/17 15:00 23:00 07:00 Intake Total 500 ml 240 ml Output Total 2800 ml Balance -2300 ml 240 ml Exam Eating, no apparent distress Constitutional: alert, oriented Head: normocephalic Neck: supple Respiratory: other (Coarse breath sounds bilaterally, no wheezing) Cardiovascular: other (S1-S2 heard), regular rate and rhythm Gastrointestinal: bowel sounds, non-tender, other (No guarding), soft Extremities: edema Results Result Diagram: 01/15/17 0600 01/16/17 0540 Results 24 hrs Laboratory Tests Test 01/16/17 05:40 Anion Gap 15 Blood Urea Nitrogen 22 H Calcium Level 8.3 L Carbon Dioxide Level 27 Chloride Level 99 Creatinine 2.40 H Glucose Level 104 Magnesium Level 2.0 Potassium Level 3.6 Random Vancomycin Level 12.5 Sodium Level 137 Medications Medications Current Medications Aspirin (Halfprin) 81 mg DAILY PO Last administered on 01/16/17 08:49; Admin Dose 81 MG; Start 01/10/17 at 09:00 Docusate Sodium (Colace) 100 mg BID PRN PO CONSTIPATION; Start 01/10/17 at 08: 30 Epoetin Costa (Epogen (Esrd)) 4,000 units MoWeFr@17 SC Last administered on 01/15 17:45; Admin Dose 4,000 UNITS; Start 01/10/17 at 17:00 Folic Acid (Folic Acid) 1 mg DAILY PO Last administered on 01/16/17 08:49; Admin Dose 1 MG; Start 01/10/17 at 09:00 Hydroxychloroquine Sulfate (Plaquenil) 200 mg BID PO Last administered on 08:49; Admin Dose 200 MG; Start 01/10/17 at 09:00 Metoprolol Succinate (Toprol Xl) 50 mg QHS PO Last administered on 01/15/17 21 :32; Admin Dose 50 MG; Start 01/10/17 at 21:00 Naphazoline HCl/ Pheniramine Maleate (Visine-A) 1 drop QID BOTH EYES Last administered on 01/16/17 12:39; Admin Dose 1 DROP; Start 01/10/17 at 09:00 Pantoprazole (Protonix Tab) 40 mg BID PO Last administered on 01/16/17 08:49; Admin Dose 40 MG; Start 01/10/17 at 09:00 Salmeterol Xinafoate/ Fluticasone (Advair 250/50 Diskus) 1 inh BID INH Last administered on 01/16/17 08:48; Admin Dose 1 INH; Start 01/10/17 at 09:00 Sucralfate (Carafate) 1 gm BID PO Last administered on 01/16/17 08:49; Admin Dose 1 GM; Start 01/10/17 at 09:00 Valsartan (Diovan) 160 mg DAILY PO Last administered on 01/16/17 08:49; Admin Dose 160 MG; Start 01/10/17 at 09:00 Vitamin B Complex/ Vitamin C (Berocca) 1 cap DAILY PO Last administered on 01/16 08:49; Admin Dose 1 CAP; Start 01/10/17 at 09:00 Atorvastatin Calcium (Lipitor) 80 mg DAILY PO Last administered on 01/16/17 08 :49; Admin Dose 80 MG; Start 01/10/17 at 09:00 Hydralazine HCl (Apresoline) 50 mg Q6 PO Last administered on 01/16/17 12:39; Admin Dose 50 MG; Start 01/10/17 at 12:00 Ondansetron HCl (Zofran Inj) 4 mg Q6H PRN IV NAUSEA AND/OR VOMITING; Start 08/19 at 08:30 Acetaminophen (Tylenol Tab) 650 mg Q6H PRN PO PAIN LEVEL 1-3 OR FEVER; Start at 08:30 Morphine Sulfate (morphine) 2 mg Q4H PRN IV PAIN LEVEL 7-10 Last administered on 01/11/17 14:23; Admin Dose 2 MG; Start 01/10/17 at 08:30 Haloperidol (Haldol) 1 mg Q6 PRN IM agitation; Start 01/11/17 at 23:30 Mupirocin (Bactroban) 1 applic BID TOP Last administered on 01/16/17 08:49; Admin Dose 1 APPLIC; Start 01/12/17 at 21:00 Cyanocobalamin 1000 mcg 1,000 mcg Q7D IM Last administered on 01/13/17 19:41; Admin Dose 1,000 MCG; Start 01/13/17 at 19:00 Vancomycin HCl (Vancocin) 250 ml @ 125 mls/hr Q96H IVPB Last administered on 11:01; Admin Dose 125 MLS/HR; Start 01/16/17 at 11:00 Db Olea DO Jan 16, 2017 15:45
[2017-01-16] MEDS: METOPROLOL (XL) 50 MG TAB PO SCH (20:58)
== END 2017-01-16 22:29 | DRG 291 ==
LOC: E/R 03:39 → ICU 10:56 → TEL 01-12 12:15
PROVIDERS: ADMIT Legal Medicine; ATTEND Legal Medicine
PROC: 5A1D60Z (ICD-10-PCS; 2017-01-10)
PROC: 30233N1 Transfusion of Nonautologous Red Blood Cells into Peripheral Vein, Percutaneous Approach (ICD-10-PCS; principal; 2017-01-13)
DX: I13.2 Hypertensive heart and chronic kidney disease with heart failure and with stage 5 chronic kidney disease, or end stage renal disease (principal); J96.01 Acute respiratory failure with hypoxia; G92 Toxic encephalopathy; E87.0 Hyperosmolality and hypernatremia; J18.9 Pneumonia, unspecified organism; J81.1 Chronic pulmonary edema; D69.6 Thrombocytopenia, unspecified; D64.9 Anemia, unspecified; N18.6 End stage renal disease; I50.33 Acute on chronic diastolic (congestive) heart failure; Z95.810 Presence of automatic (implantable) cardiac defibrillator; I35.0 Nonrheumatic aortic (valve) stenosis; I45.10 Unspecified right bundle-branch block; Z95.1 Presence of aortocoronary bypass graft; F41.9 Anxiety disorder, unspecified; Z99.2 Dependence on renal dialysis; I16.0 Hypertensive urgency; I34.0 Nonrheumatic mitral (valve) insufficiency; I36.1 Nonrheumatic tricuspid (valve) insufficiency
CPT/HCPCS: 36430; 36600; 71010; 80048; 80053; 80202; 82607; 82803; 83605; 83735; 84100; 84484; 85025; 85610; 85730; 86850; 86900; 86901; 86920; 87040; 87081; 90935; 93005; 93306; 94640; 94644; 94660; 96374; J0692; J0886; J1650; J1940; J2060; J2270; J3370; J3420; P9016